=== PATIENT | male | born 1945 | race Caucasian/White ===

== ENCOUNTER 2016-08-11 22:15 | Emergency (ER) | payer BC ==
[~2016-08-11] VITALS: Ht 175.3 cm; Wt 104.5 kg
[~2016-08-11 22:15] MED LIST: ALLO300T2 PO; ASPI81TA21 PO; ATOR-24 PO; METO50TA16 PO; MULTTAB58 PO; NITR0.4S UT; OMEP20CA9 PO; SULI200T4 PO; TRIATAB3 PO
[2016-08-11 22:16] VITALS: TEMP 36.9; Ht 175.3 cm; Wt 104.5 kg
[2016-08-11] MEDS ORDERED: HYDR2.5C37 TOP (22:42)
[2016-08-11] MEDS ORDERED: ACET-1257 PO (22:42)
[2016-08-11] MEDS ORDERED: ALL100 PO (22:42)
[2016-08-11 23:52] LABS: HEMATOCRIT 41.9 % (42-52); MEAN CELL VOLUME 87.5 fL (80-100); MEAN CORPUSCULAR HEMOGLOBIN 31.5 pg (25-34); MEAN PLATELET VOLUME 10.5 fL (7.4-10.4); PLATELET COUNT 95 K/uL (130-400); RED BLOOD COUNT 4.79 M/uL (4.7-6.1); WHITE BLOOD COUNT 8.56 K/uL (4.8-10.8)
[2016-08-11 23:57] LABS: BUN/CREATININE RATIO 24.7 (10-20); CALCIUM 8.8 mg/dl (8.5-10.1); POTASSIUM 3.9 mmol/L (3.5-5.1)
[2016-08-12 00:20] LABS: BASO % 0.2 %; BASO ABS # 0.02 K/uL (0-0.2); COMPLETE YES; EOS % 1.1 %; IG% 0.2 %; LYMPH ABS # 1.97 K/uL (1.2-3.4); MONO % 9.3 %; NEUT % 66.2 %; PLT ESTIMATE DECREASED
--- NOTE | 2016-08-12 00:22 | History and Physical ---
History & Physical Date & Time of Service: Aug 12, 2016 at 00:16 Chief Complaint: Pain In Rectum Primary Care Physician: Tomas Ricci M.D. Past Medical/Surgical History Medical Problems: (1) Coronary artery disease Status: Chronic (2) GERD (gastroesophageal reflux disease) Status: Chronic (3) High cholesterol Status: Chronic (4) HTN (hypertension) Status: Chronic Surgical Problems: (1) History of coronary artery stent placement Status: Resolved Family History Heart disease Hypertension Social History Smoking Status: Never Smoker Marital Status: Occupational Status: retired Immunizations History of Influenza Vaccine: N/A History of Tetanus Vaccine?: Yes Tetanus Immunization Date: Jan 12, 2010 History of Pneumococcal: Yes Pneumococcal Date: Jan 12, 2010 History of Hepatitis B Vaccine: No Multi-Drug Resistant Organisms History of MDRO: No Allergies Coded Allergies: Ticlopidine (Verified Allergy, Intermediate, EYES AND FACE SWELL, 06/16/15) Iodinated Diagnostic Agents (Verified Allergy, Unknown, HIVES, 06/16/15) Home Medications Scheduled Allopurinol (Allopurinol), 100 MG PO DAILY Aspirin Enteric Coated (Ecotrin Or Generic), 81 MG PO QAM Atorvastatin (Lipitor), 40 MG PO Q2D Metoprolol Tartrate (Lopressor) (Lopressor), 50 MG PO BID Omeprazole (Prilosec), 20 MG PO Q2D Triamterene/Hctz (Triamterene/Hctz 37.5-25MG), 1 TAB PO QAM Scheduled PRN Acetaminophen (Tylenol Extra Strength), 500 MG PO Q4-6HRS PRN for Pain Hydrocortisone 2.5% (Rectal) (Anusol-Hc 2.5%), 1 APPLN TOP HS PRN for Rectal Pain Nitroglycerin (Nitrostat), 0.4 MG UT UD PRN for Chest Pain Review of Systems Constitutional: No chills, No fatigue, No fever, No problem reported, No sweats , No weakness, No weight loss Eyes: No diplopia, No discharge, No eye pain, No problem reported, No redness, No worsening of vision ENT: No dental problems, No hearing loss, No nasal symptoms, No problem reported, No sore throat, No tinnitus, No trouble swallowing, No unusual epistaxis Respiratory: No cough, No dyspnea at rest, No dyspnea on exertion, No hemoptysis, No problem reported, No shortness of breath, No sputum, No wheezing Cardiovascular: + problem reported (cardiac stent), No PND, No chest pain, No claudication, No edema, No orthopnea, No palpitations Abdomen: + problem reported (hemorrhoid) Neurologic: No balance problems, No memory loss, No numbness/tingling, No paralysis, No problem reported, No vertigo, No weakness Psychiatric: No anhedonism, No anxiety, No depression symptoms, No insomnia, No problem reported, No substance abuse Hematologic / Lymphatic: No abnormal bleeding/bruising, No clotting problems, No night sweats, No problem reported, No swollen lymph nodes Physical Exam Vital Signs Date Time Temp Pulse Resp B/P Pulse Ox O2 Delivery O2 Flow Rate FiO2 08/12/16 00:12 78 18 163/83 95 Room Air 08/11/16 22:16 36.9 87 18 166/86 95 Room Air General Appearance: WD/WN Head: normocephalic Eyes: normal inspection ENT: normal ENT inspection Neck: supple, no JVD Respiratory/Chest: chest non-tender, lungs clear Cardiovascular: regular rate, rhythm, no edema, no gallop, no JVD Abdomen/GI: normal bowel sounds, non tender, soft, no organomegaly (rectal tenderness at left side, some redness, ) Extremities/Musculoskelatal: normal inspection, no calf tenderness, normal capillary refill Neurologic/Psych: no motor/sensory deficits, alert, normal mood/affect Skin: normal color, warm/dry, no rash Diagnostics Laboratory Results Results Past 24 Hours Test 08/11/16 23:16 Range/Units White Blood Count 8.56 4.8-10.8 K/uL Red Blood Count 4.79 4.7-6.1 M/uL Hemoglobin 15.1 14.0-18.0 g/dL Hematocrit 41.9 42-52 % Mean Corpuscular Volume 87.5 80-100 fL Mean Corpuscular Hemoglobin 31.5 25-34 pg Mean Corpuscular Hemoglobin Concent 36.0 32-36 g/dl Platelet Count 95 130-400 K/uL Mean Platelet Volume 10.5 7.4-10.4 fL RDW Standard Deviation 44.0 36.4-46.3 fL RDW Coefficient of Variation 13.6 11.5-14.5 % Sodium Level 143 136-145 mmol/L Potassium Level 3.9 3.5-5.1 mmol/L Chloride Level 106 98-107 mmol/L Carbon Dioxide Level 27 21-32 mmol/L Anion Gap 10.0 3-11 mmol/L Blood Urea Nitrogen 25 7-18 mg/dl Creatinine 1.00 0.60-1.40 mg/dl Est Creatinine Clear Calc Drug Dose 78.4 ml/min Estimated GFR () 86.2 Estimated GFR (Non- 74.3 BUN/Creatinine Ratio 24.7 10-20 Random Glucose 110 70-99 mg/dl Calcium Level 8.8 8.5-10.1 mg/dl Impression Assessment and Plan IMP anal infection, cellulitis or abscess U/S study to R/O anal abscess, if any fluid collection is present, I recommend to do I/D abscess, D/W benefits, risks and alternatives of the procedure, pt understood, i answered all questions,
[2016-08-12] MEDS ORDERED: METRONIDAZOLE 250 MG TAB PO STA (01:55)
[2016-08-12] MEDS ORDERED: CIPROFLOXACIN 500MG HOME PACK PO ONE (02:00)
[2016-08-12] MEDS ORDERED: PERCOCET HOME PACK PO ONE (02:00)
[2016-08-12] MEDS ORDERED: OXYC-57 PO (02:02)
[2016-08-12] MEDS ORDERED: METR-163 PO (02:02)
[2016-08-12] MEDS ORDERED: CIPR-255 PO (02:02)
--- NOTE | 2016-08-12 02:05 | EMERGENCY ROOM VISIT NOTE ---
History First contact with patient: 22:28 Chief Complaint: RECTAL PAIN Stated Complaint: PAIN IN RECTUM Nursing Triage Summary: pt c/o ongoing rectal pain, Had been straining with constipation. "I thought I may have a hemmorhoid or something". ongoing issue, reports was seen in [place], was given abx and used sitz bath, relieved. Now pt reports pain has returned, bump is larger. denies any bleeding History of Present Illness The patient is a 71 year old male who presents to the Emergency Room with complaints of a possible hemorrhoid. The patient states that he has had rectal pain for the past one week. He reports he had an episode of something similar approximately one year ago. He saw his primary care provider and was given antibiotics, steroid cream, and instructed to do sitz baths. He states that the pain and swelling resolved with this. However, he states his symptoms returned last week. He reports pain in the rectal area which he rates an 8/10. He states he feels the area is swollen. There is no drainage. There is no bleeding. He reports he has been able to have bowel movements without difficulties. He denies any fevers/chills. Review of Systems A complete 10-point Review of Systems was discussed with the patient, with pertinent positives and negatives listed in the History of Present Illness. All remaining Review of Systems questions can be considered negative unless otherwise specified. Past Medical/Surgical History Medical Problems: (1) Coronary artery disease (2) GERD (gastroesophageal reflux disease) (3) High cholesterol (4) HTN (hypertension) Surgical Problems: (1) History of coronary artery stent placement Family History Heart disease Hypertension Social History Smoking Status: Never Smoker Marital Status: Housing Status: lives with significant other Occupation Status: retired Current/Historical Medications Scheduled Allopurinol (Allopurinol), 100 MG PO DAILY Aspirin Enteric Coated (Ecotrin Or Generic), 81 MG PO QAM Atorvastatin (Lipitor), 40 MG PO Q2D Ciprofloxacin Hcl (Cipro), 500 MG PO BID Metoprolol Tartrate (Lopressor) (Lopressor), 50 MG PO BID Metronidazole (Flagyl), 500 MG PO TID Omeprazole (Prilosec), 20 MG PO Q2D Triamterene/Hctz (Triamterene/Hctz 37.5-25MG), 1 TAB PO QAM Scheduled PRN Acetaminophen (Tylenol Extra Strength), 500 MG PO Q4-6HRS PRN for Pain Hydrocortisone 2.5% (Rectal) (Anusol-Hc 2.5%), 1 APPLN TOP HS PRN for Rectal Pain Nitroglycerin (Nitrostat), 0.4 MG UT UD PRN for Chest Pain Oxycodone/Acetaminophen 5MG/325MG (Percocet 5MG/325MG), 1-2 TABS PO Q4H PRN for Pain Allergies Coded Allergies: Ticlopidine (Verified Allergy, Intermediate, EYES AND FACE SWELL, 06/16/15) Iodinated Diagnostic Agents (Verified Allergy, Unknown, HIVES, 06/16/15) Physical Exam Vital Signs Date Time Temp Pulse Resp B/P Pulse Ox O2 Delivery O2 Flow Rate FiO2 08/12/16 02:12 83 18 158/90 97 Room Air 08/12/16 00:12 78 18 163/83 95 Room Air 08/11/16 22:16 36.9 87 18 166/86 95 Room Air Physical Exam VITALS: Vitals are noted on the nurse's note and reviewed by myself. Vital signs stable. GENERAL: This is a 71-year-old male, in no acute distress, nondiaphoretic, well- developed well-nourished. SKIN: Capillary reflex less than 2 seconds. HEART: Regular rate and rhythm without murmurs gallops or rubs. LUNGS: Clear to auscultation bilaterally without wheezes, rales or rhonchi. ABDOMEN: Soft, nontender to palpation. RECTAL: There is induration and erythema in the left gluteal region just lateral to the rectum. There is no drainage or fluctuance. NEURO: Patient was alert and oriented to person place and time. Medical Decision & Procedures ER Provider Diagnostic Interpretation: US EXTREMITY: Heterogeneous space-occupying process in the region of interest which is the left gluteal region. With peripheral vascularity but no intravascular. It measures 1.8 x 1.9 x 3.2 cm. Differential would include hematoma or abscess depending on the clinical scenario. Radiologist: Chevy Barr MD Laboratory Results 08/11/16 23:16 Red Blood Count 4.79, Mean Corpuscular Volume 87.5, Mean Corpuscular Hemoglobin 31.5, Mean Corpuscular Hemoglobin Concent 36.0, Mean Platelet Volume 10.5, Neutrophils (%) (Auto) 66.2, Lymphocytes (%) (Auto) 23.0, Monocytes (%) (Auto) 9.3, Eosinophils (%) (Auto) 1.1, Basophils (%) (Auto) 0.2, Neutrophils # (Auto) 5.66, Lymphocytes # (Auto) 1.97, Monocytes # (Auto) 0.80, Eosinophils # (Auto) 0.09, Basophils # (Auto) 0.02 08/11/16 23:16 Test 08/11/16 23:16 White Blood Count 8.56 K/uL (4.8-10.8) Red Blood Count 4.79 M/uL (4.7-6.1) Hemoglobin 15.1 g/dL (14.0-18.0) Hematocrit 41.9 % (42-52) Mean Corpuscular Volume 87.5 fL (80-100) Mean Corpuscular Hemoglobin 31.5 pg (25-34) Mean Corpuscular Hemoglobin Concent 36.0 g/dl (32-36) Platelet Count 95 K/uL (130-400) Mean Platelet Volume 10.5 fL (7.4-10.4) Neutrophils (%) (Auto) 66.2 % Lymphocytes (%) (Auto) 23.0 % Monocytes (%) (Auto) 9.3 % Eosinophils (%) (Auto) 1.1 % Basophils (%) (Auto) 0.2 % Neutrophils # (Auto) 5.66 K/uL (1.4-6.5) Lymphocytes # (Auto) 1.97 K/uL (1.2-3.4) Monocytes # (Auto) 0.80 K/uL (0.11-0.59) Eosinophils # (Auto) 0.09 K/uL (0-0.5) Basophils # (Auto) 0.02 K/uL (0-0.2) RDW Standard Deviation 44.0 fL (36.4-46.3) RDW Coefficient of Variation 13.6 % (11.5-14.5) Immature Granulocyte % (Auto) 0.2 % Immature Granulocyte # (Auto) 0.02 K/uL (0.00-0.02) Platelet Estimate DECREASED Anion Gap 10.0 mmol/L (3-11) Est Creatinine Clear Calc Drug Dose 78.4 ml/min Estimated GFR () 86.2 Estimated GFR (Non- 74.3 BUN/Creatinine Ratio 24.7 (10-20) Calcium Level 8.8 mg/dl (8.5-10.1) Medications Administered Medications (Trade) Dose Ordered Sig/Giulia Route Start Time Stop Time Status Last Admin Dose Admin Ciprofloxacin (Cipro 500MG Home Pack) 1 homepack UD ONCE PO 08/12/16 02:00 08/12/16 02:01 DC 08/12/16 02:15 1 HOMEPACK Metronidazole (Flagyl Tab) 1,000 mg NOW STAT PO 08/12/16 01:55 08/12/16 01:58 DC 08/12/16 02:14 1,000 MG Oxycodone/ Acetaminophen (Percocet 5/ 325MG Home Pack) 1 homepack UD ONCE PO 08/12/16 02:00 08/12/16 02:01 DC 08/12/16 02:15 1 HOMEPACK Medical Decision Differential diagnosis includes perirectal abscess, perirectal cellulitis, hemorrhoid, among others. The patient was evaluated as above. He appears to have a perirectal infection. I do not appreciate any fluctuance on exam to suggest an abscess. Labs were drawn. I consulted the general surgeon on-call, Dr. Tucker, who did evaluate the patient. Please see his dictation for this consultation. He did request an ultrasound of the area, which was performed and read by stat sarai. These findings were discussed with Dr. Tucker, who felt that the patient should be discharged home on ciprofloxacin and Flagyl to follow-up in the office with him this Friday. These findings were discussed with the patient, who verbalized his understanding. He was given home packs of ciprofloxacin and Flagyl as well as pack and prescription of Percocet for pain. He was instructed to use Colace to aid with bowel movements. He will return for any worsening of his symptoms. He verbalized understanding of my assessment and treatment plan and was discharged home in good condition. The patient's case was reviewed with Dr. Meier, ED attending physician, who agreed with my assessment and treatment plan. [place] Drug Monitoring Program Search Results: patient reviewed within database, no issues identified Impression Primary Impression: Perirectal abscess Departure Information Dispostion Home / Self-Care Condition GOOD Prescriptions Oxycodone/Acetaminophen 5MG/325MG (PERCOCET 5MG/325MG) Tab 1-2 TABS PO Q4H Y for Pain, #20 TAB For Initial Treatment Prov: Rosamaria Cifuentes PA-C 08/12/16 Metronidazole (Flagyl) 500 Mg Tab 500 MG PO TID for 10 Days, #30 TAB Prov: Rosamaria Cifuentes PA-C 08/12/16 Ciprofloxacin Hcl (CIPRO) 500 Mg Tab 500 MG PO BID for 10 Days, #20 TAB Prov: Rosamaria Cifuentes PA-C 08/12/16 Referrals Tomas Ricci M.D. (PCP) Luis Fernando Tucker MD Patient Instructions My [facility] Additional Instructions You were prescribed ciprofloxacin to be taken twice daily as prescribed. This is an antibiotic. All antibiotics have the potential to cause diarrhea. Stop this medication and contact a medical provider if you were to develop any significant adverse side effects including: wheezing, shortness of breath, passing out, vomiting, or a diffuse rash. Always take antibiotics as directed and COMPLETE the ENTIRE course regardless of the improvement of your symptoms. You were prescribed Flagyl to be taken 3 times daily as prescribed. This is an antibiotic. All antibiotics have the potential to cause diarrhea. Stop this medication and contact a medical provider if you were to develop any significant adverse side effects including: wheezing, shortness of breath, passing out, vomiting, or a diffuse rash. Always take antibiotics as directed and COMPLETE the ENTIRE course regardless of the improvement of your symptoms. For pain control, you can use the following [id number] medicines (if >12 yo): - Regular strength (325mg/tab) Tylenol (acetaminophen) 2 tabs every 4-6 hours as needed. Do not exceed 12 tablets in a 24 hour period. Avoid taking more than 4 grams (4000 mg) of Tylenol per day. This includes any other sources of acetaminophen you may take on a regular basis. - Regular strength (200 mg/tab) Advil (ibuprofen) 1-2 tabs every 4-6 hours as needed. Do not exceed a dose of 3200 mg per day. You should take Colace daily to help soft and your stools and make bowel movements less painful. Call Dr. Tucker's office tomorrow to schedule a follow-up appointment. They will be able to see you on Friday. Return to the emergency department with worsening swelling, worsening pain, fevers or any other new/concerning symptoms.
[2016-08-12] MEDS ORDERED: EMPTY 8 DRAM VIAL ONE (02:08)
[2016-08-12 02:12] VITALS: BP 158/90; PULSE 83; O2SAT 97
--- NOTE | 2016-08-12 06:42 | DIAGNOSTIC IMAGING REPORT ---
LEFT GLUTEAL ULTRASOUND CLINICAL HISTORY: Induration in the left perirectal region. Possible abscess COMPARISON STUDY: No previous studies for comparison. FINDINGS: Ultrasonographic evaluation of the left gluteal region is provided for interpretation. There is an avascular hypoechoic 18 x 19 x 32 mm lesion lateral to the left gluteal cleft. IMPRESSION: Avascular 18 x 19 x 32 mm mass within the left gluteal region just lateral to the gluteal cleft. Given the clinical history, this could represent an abscess. Electronically signed by: Aime Turcios M.D. 08/12/2016 6:40 AM Dictated Date/Time: 08/12/2016 6:38 AM
== END 2016-08-12 02:26 | disposition home or self-care (01) ==
LOC: C.EDB 22:16
DX: K61.1 Rectal abscess (principal); I10 Essential (primary) hypertension; E78.00 Pure hypercholesterolemia, unspecified; I25.10 Atherosclerotic heart disease of native coronary artery without angina pectoris; K21.9 Gastro-esophageal reflux disease without esophagitis; Z98.61 Coronary angioplasty status; Z79.82 Long term (current) use of aspirin; Z79.899 Other long term (current) drug therapy; Z88.8 Allergy status to other drugs, medicaments and biological substances; Z91.041 Radiographic dye allergy status; Z82.49 Family history of ischemic heart disease and other diseases of the circulatory system

== ENCOUNTER → 2016-08-22 | Outpatient (CLI) | payer BC ==
[~2016-08-22] MED LIST changes: +ACET-1257 PO; +ALL100 PO; -ALLO300T2 PO; +CIPR-255 PO; +HYDR2.5C37 TOP; +METR-163 PO; -MULTTAB58 PO; +OXYC-57 PO; -SULI200T4 PO
[2016-08-22 13:18] LABS: ALT/SGPT 56 U/L (12-78); BLOOD UREA NITROGEN 25 mg/dl (7-18); BUN/CREATININE RATIO 18.8 (10-20); CARBON DIOXIDE 26 mmol/L (21-32); CHLORIDE 101 mmol/L (98-107); CHOLESTEROL 150 mg/dl (0-200); GLUCOSE 121 mg/dl (70-99); POTASSIUM 3.5 mmol/L (3.5-5.1); SODIUM 137 mmol/L (136-145); TRIGLYCERIDES 195 mg/dl (0-150); URIC ACID 9.3 mg/dl (2.6-7.2); VERY LOW DENSITY LIPOPROT CALC 39 mg/dl
[2016-08-22 13:20] LABS: CALCIUM 9.6 mg/dl (8.5-10.1); ESTIMATED AVERAGE GLUCOSE 114 mg/dl; HA1C FLAG Normal (Normal)
[2016-08-22 13:21] LABS: ALB/GLOB RATIO 1.3 (0.9-2); ALKALINE PHOSPHATASE 76 U/L (45-117); AST/SGOT 56 U/L (15-37); CHOLESTEROL/HDL RATIO 3.5; HDL CHOLESTEROL 43 mg/dl; LDL CHOLESTEROL CALCULATED 68 mg/dl
== END | disposition home or self-care (01) ==
LOC: C.LABPVFM 07:58
PROVIDERS: ATTEND Family Medicine
DX: M10.9 Gout, unspecified (principal); I25.10 Atherosclerotic heart disease of native coronary artery without angina pectoris; E78.5 Hyperlipidemia, unspecified; I10 Essential (primary) hypertension; K21.9 Gastro-esophageal reflux disease without esophagitis; Z12.5 Encounter for screening for malignant neoplasm of prostate; R73.01 Impaired fasting glucose

== ENCOUNTER → 2017-06-05 | Outpatient (CLI) | payer BC ==
[~2017-06-05] MED LIST changes: -METR-163 PO; -OXYC-57 PO
[2017-06-05 17:53] LABS: ALKALINE PHOSPHATASE 99 U/L (45-117); ALT/SGPT 26 U/L (12-78); AST/SGOT 28 U/L (15-37); BLOOD UREA NITROGEN 33 mg/dl (7-18); CALCIUM 8.7 mg/dl (8.5-10.1); CARBON DIOXIDE 19 mmol/L (21-32); CREATININE 0.96 mg/dl (0.60-1.40); GLUCOSE 133 mg/dl (70-99); LIPASE 117 U/L (73-393); POTASSIUM 4.5 mmol/L (3.5-5.1); SODIUM 137 mmol/L (136-145); TOTAL PROTEIN 7.3 gm/dl (6.4-8.2)
[2017-06-05 18:17] LABS: HEMATOCRIT 50.2 % (42-52); HEMOGLOBIN 18.5 g/dL (14.0-18.0); MEAN CELL VOLUME 86.4 fL (80-100); MEAN CORPUSCULAR HEMOGLOBIN 31.8 pg (25-34); MEAN CORPUSCULAR HGB CONC 36.9 g/dl (32-36); RED CELL DISTRIBUTION WIDTH CV 13.5 % (11.5-14.5); WHITE BLOOD COUNT 7.08 K/uL (4.8-10.8)
[2017-06-05 18:19] LABS: MEAN PLATELET VOLUME 12.5 fL (7.4-10.4); PLATELET COUNT 39 K/uL (130-400)
[2017-06-05 18:20] LABS: BASO % 0.4 %; BASO ABS # 0.03 K/uL (0-0.2); EOS % 0.1 %; EOS ABS # 0.01 K/uL (0-0.5); IG# 0.04 K/uL (0.00-0.02); LYMPH % 5.2 %; LYMPH ABS # 0.37 K/uL (1.2-3.4); MONO % 5.6 %; NEUT % 88.1 %; NEUT ABS # 6.23 K/uL (1.4-6.5)
== END | disposition home or self-care (01) ==
LOC: C.LABPVFM 11:39
PROVIDERS: ATTEND Family Medicine
DX: K52.9 Noninfective gastroenteritis and colitis, unspecified (principal)

== ENCOUNTER 2022-07-27 13:53 | Observation (INO) ==
--- NOTE | 2022-07-27 14:37 | Emergency Department Note ---
History of Present Illness General Chief complaint: Flu Like Symptoms Stated complaint: FLU LIKE SYMPTOMS - INFLUENZA A+ Time Seen by Provider: 07/27/22 14:06 Source: patient and family (Son at bedside and in the adjacent bed who is patient also) History of Present Illness Provider complaint: Weakness influenza 77-year-old male presents emergency department for weakness and influenza. Patient reports she was diagnosed with influenza yesterday. He reports he has been weak and coughing. No hemoptysis. No chest pain. No shortness of breath. Patient's is stated the adjacent bed being treated in the emergency department and he stated while she was being checked out he wanted to be checked out also. No chest pain. No fever. Patient is not on Tamiflu. Home Medications Medication Instructions Recorded Confirmed Type acetaminophen 500 mg tablet 500 mg PO .Q4-6H PRN fever or pain 11/17/18 07/27/22 History nitroglycerin 0.4 mg sublingual 0.4 mg sublingual Q5M PRN chest 11/17/18 07/27/22 History tablet pain #25 tabs atorvastatin 40 mg tablet 40 mg PO DAILY #90 tabs 01/08/22 07/27/22 Rx metoprolol succinate 50 mg 50 mg PO QPM #90 tabs 01/08/22 07/27/22 Rx tablet,extended release 24 hr allopurinol 100 mg tablet 200 mg PO DAILY #180 tabs 06/12/22 07/27/22 Rx omeprazole 20 mg capsule,delayed 20 mg PO Q OTHER DAY #45 caps 06/12/22 07/27/22 Rx release aspirin 81 mg tablet,delayed 81 mg PO DAILY 07/27/22 07/27/22 History release Allergies Allergy/AdvReac Type Severity Reaction Status Date / Time ticlopidine Allergy Intermediate EYES AND Verified 07/27/22 17:30 FACE SWELL Iodinated Contrast Media Allergy Unknown HIVES Verified 07/27/22 17:30 triamterene AdvReac Diarrhea Verified 07/27/22 17:30 Past Med/Surg History Medical History (Updated 07/27/22 @ 20:45 by Andrea Ureña) Abscess, perirectal (10/2018) Constipation Elevated liver enzymes Hemorrhoids Impaired fasting glucose Stasis dermatitis Thrombocytopenia Varicose vein of leg Surgical History S/P right coronary artery (RCA) stent placement (1996) Family History Mother No problems noted. 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 marital status: Current Living Situation: Spouse current occupational status: retired How many Children do You have: 3 Feels Safe at Home: Yes Childhood Exposure to Second-Hand Smoke: Yes caffeine: Yes Dental Care, Regularly: Yes Physical Activity Frequency: Does not Exercise Seatbelt Use: always Sunscreen Use: No Physical Exam Vital Signs Vital Signs - 24 hr 07/27/22 13:54 07/27/22 14:50 07/27/22 15:00 Temperature 37.5 C Temperature Source Temporal Artery Scan Pulse Rate 110 H 106 H Pulse Rate [Right Finger] 93 H Pulse Rate from SpO2 Sensor Pulse Rhythm Pulse Rhythm [Right Finger] Irregular Pulse Strength [Right Finger] Normal Respiratory Rate 16 15 Respiratory Effort / Characteristics Non-Labored Spontaneous Respiratory Depth Normal Respiratory Pattern Regular Blood Pressure 107/52 L Blood Pressure [Right Arm] 124/79 Blood Pressure Mean 70 Blood Pressure Mean [Right Arm] 94 Blood Pressure Position [Right Arm] Lying Pulse Oximetry 96 91 Oxygen Delivery Method Room Air Sepsis Recent Fever Within 48 Hours No Sepsis New/Unexplained Change in Mental Status N/A Sepsis Action Taken by Nursing No Action Required 07/27/22 15:00 07/27/22 14:48 07/27/22 14:50 Temperature Temperature Source Pulse Rate 99 H 108 H 106 H Pulse Rate [Right Finger] Pulse Rate from SpO2 Sensor 108 H 97 H Pulse Rhythm Irregular Pulse Rhythm [Right Finger] Pulse Strength [Right Finger] Respiratory Rate 15 18 18 Respiratory Effort / Characteristics Respiratory Depth Respiratory Pattern Blood Pressure Blood Pressure [Right Arm] Blood Pressure Mean Blood Pressure Mean [Right Arm] Blood Pressure Position [Right Arm] Pulse Oximetry 91 96 95 Oxygen Delivery Method Room Air Sepsis Recent Fever Within 48 Hours Sepsis New/Unexplained Change in Mental Status Sepsis Action Taken by Nursing 07/27/22 15:00 07/27/22 15:10 07/27/22 15:20 Temperature Temperature Source Pulse Rate 104 H 100 H 109 H Pulse Rate [Right Finger] Pulse Rate from SpO2 Sensor 101 H 96 H Pulse Rhythm Pulse Rhythm [Right Finger] Pulse Strength [Right Finger] Respiratory Rate 17 18 13 Respiratory Effort / Characteristics Respiratory Depth Respiratory Pattern Blood Pressure Blood Pressure [Right Arm] Blood Pressure Mean Blood Pressure Mean [Right Arm] Blood Pressure Position [Right Arm] Pulse Oximetry 94 93 Oxygen Delivery Method Sepsis Recent Fever Within 48 Hours Sepsis New/Unexplained Change in Mental Status Sepsis Action Taken by Nursing 07/27/22 15:22 07/27/22 15:22 07/27/22 15:30 Temperature Temperature Source Pulse Rate 96 H Pulse Rate [Right Finger] Pulse Rate from SpO2 Sensor 81 Pulse Rhythm Pulse Rhythm [Right Finger] Pulse Strength [Right Finger] Respiratory Rate 17 Respiratory Effort / Characteristics Respiratory Depth Respiratory Pattern Blood Pressure 124/79 99/69 L Blood Pressure [Right Arm] Blood Pressure Mean 94 79 Blood Pressure Mean [Right Arm] Blood Pressure Position [Right Arm] Pulse Oximetry 93 Oxygen Delivery Method Sepsis Recent Fever Within 48 Hours Sepsis New/Unexplained Change in Mental Status Sepsis Action Taken by Nursing 07/27/22 15:30 07/27/22 15:40 07/27/22 15:50 Temperature Temperature Source Pulse Rate 103 H 96 H 105 H Pulse Rate [Right Finger] Pulse Rate from SpO2 Sensor 99 H 89 91 H Pulse Rhythm Pulse Rhythm [Right Finger] Pulse Strength [Right Finger] Respiratory Rate 21 21 18 Respiratory Effort / Characteristics Respiratory Depth Respiratory Pattern Blood Pressure Blood Pressure [Right Arm] Blood Pressure Mean Blood Pressure Mean [Right Arm] Blood Pressure Position [Right Arm] Pulse Oximetry 91 89 L 93 Oxygen Delivery Method Sepsis Recent Fever Within 48 Hours Sepsis New/Unexplained Change in Mental Status Sepsis Action Taken by Nursing 07/27/22 16:00 07/27/22 16:00 07/27/22 16:10 Temperature Temperature Source Pulse Rate 96 H 99 H Pulse Rate [Right Finger] Pulse Rate from SpO2 Sensor 78 96 H Pulse Rhythm Pulse Rhythm [Right Finger] Pulse Strength [Right Finger] Respiratory Rate 13 18 Respiratory Effort / Characteristics Respiratory Depth Respiratory Pattern Blood Pressure 129/85 Blood Pressure [Right Arm] Blood Pressure Mean 99 Blood Pressure Mean [Right Arm] Blood Pressure Position [Right Arm] Pulse Oximetry 95 94 Oxygen Delivery Method Sepsis Recent Fever Within 48 Hours Sepsis New/Unexplained Change in Mental Status Sepsis Action Taken by Nursing 07/27/22 16:20 07/27/22 16:30 07/27/22 16:30 Temperature Temperature Source Pulse Rate 92 H 94 H Pulse Rate [Right Finger] Pulse Rate from SpO2 Sensor 88 88 Pulse Rhythm Pulse Rhythm [Right Finger] Pulse Strength [Right Finger] Respiratory Rate 22 16 Respiratory Effort / Characteristics Respiratory Depth Respiratory Pattern Blood Pressure 133/75 Blood Pressure [Right Arm] Blood Pressure Mean 94 Blood Pressure Mean [Right Arm] Blood Pressure Position [Right Arm] Pulse Oximetry 91 94 Oxygen Delivery Method Sepsis Recent Fever Within 48 Hours Sepsis New/Unexplained Change in Mental Status Sepsis Action Taken by Nursing 07/27/22 16:40 07/27/22 16:50 07/27/22 17:00 Temperature Temperature Source Pulse Rate 88 90 85 Pulse Rate [Right Finger] Pulse Rate from SpO2 Sensor 84 88 Pulse Rhythm Pulse Rhythm [Right Finger] Pulse Strength [Right Finger] Respiratory Rate 23 15 16 Respiratory Effort / Characteristics Respiratory Depth Respiratory Pattern Blood Pressure Blood Pressure [Right Arm] Blood Pressure Mean Blood Pressure Mean [Right Arm] Blood Pressure Position [Right Arm] Pulse Oximetry 89 L 94 Oxygen Delivery Method Sepsis Recent Fever Within 48 Hours Sepsis New/Unexplained Change in Mental Status Sepsis Action Taken by Nursing 07/27/22 17:10 Temperature Temperature Source Pulse Rate 102 H Pulse Rate [Right Finger] Pulse Rate from SpO2 Sensor Pulse Rhythm Pulse Rhythm [Right Finger] Pulse Strength [Right Finger] Respiratory Rate 18 Respiratory Effort / Characteristics Respiratory Depth Respiratory Pattern Blood Pressure Blood Pressure [Right Arm] Blood Pressure Mean Blood Pressure Mean [Right Arm] Blood Pressure Position [Right Arm] Pulse Oximetry Oxygen Delivery Method Sepsis Recent Fever Within 48 Hours Sepsis New/Unexplained Change in Mental Status Sepsis Action Taken by Nursing Physical Exam GENERAL: oriented to person, place, and time. appears well-developed and well- nourished. HENT: Exam performed. - Head: Normocephalic and atraumatic. EYES: Conjunctivae and EOM are normal. Right eye exhibits no discharge. Left eye exhibits no discharge. No scleral icterus. NECK: Normal range of motion. Neck supple. No JVD present. CV: Normal rate, regular rhythm, normal heart sounds and intact distal pulses. There is no peripheral edema. Palpable radial pulses bue. PULM/CHEST: Effort normal and breath sounds normal. No respiratory distress. No stridor. no wheezes. no rales. ABD: The abdomen is soft. There is no tenderness. NEURO: Motor and sensation grossly intact. SKIN: Skin is warm and dry. He is not diaphoretic. PSYCH: normal mood and affect. Behavior is normal. Judgment and thought content normal. Course Course 1406: The patient was evaluated in room A9B. A complete history and physical exam was performed Cardiac monitoring: An order was placed for continuous cardiac monitoring. The monitor shows a rate of 100 with sinus rhythm interpreted by me 1650: Vital signs stable. Patient's oxygen saturation have been borderline low 90 to 92%. Labs show leukopenia of 3.29 VBG within normal limits. Lactic acid 2.6. Troponin 86. Creatinine 1.63. This is elevated from patient's baseline of approximately 0.8. Patient given 1 L of IV fluids. 30 cc/kg bolus not given to the patient given his borderline low oxygen saturations and his stable blood pressures. Chest x-ray reviewed by me showed no infiltrate however formal radio logy read does make note of an asymmetric interstitial thickening within the left lung. Radiologist comments that this is likely artifactual however an infectious process or an asymmetric pulmonary edema could appear similar. Patient is influenza positive. Given the patient is influenza positive, has a borderline oxygen saturation, elevated lactic acid. We will presume that the patient's chest x-ray findings are not infiltrate and treat for possible staph infection given the positive influenza screen also. Blood cultures sent on the patient. Vancomycin ordered for the patient. [facility] be [facility]. Administered Medications Discontinued Medications Sodium Chloride (Nss 1000ml) 1,000 mls @ 999 mls/hr IV .Q1H1M ONE Stop: 07/27/22 17:06 Last Infusion: 07/27/22 19:49 Dose: 0 mls/hr Documented By: Admin: 07/27/22 16:44 Dose: 999 mls/hr Documented By: HUBERT Vancomycin HCl 2,000 mg/ (Sodium Chloride) 540 mls @ 200 mls/hr IV NOW ONE Stop: 07/27/22 18:47 Last Admin: 07/27/22 16:44 Dose: 200 mls/hr Documented By: HUBERT Medical Decision Making Laboratory Data Attestation: I reviewed the patient's lab results. 07/27/22 14:39 07/27/22 17:01 Lab Results 07/27/22 07/27/22 07/27/22 Range/Units 14:39 14:39 14:39 WBC 3.29 L (4.8-10.8) K/ul RBC 5.16 (4.70-6.10) M/uL Hgb 15.9 (14.0-18.0) g/dl Hct 44.3 (42.0-52.0) % MCV 85.9 (80.0-100.0) fL MCH 30.8 (25.0-34.0) pg MCHC 35.9 (32.0-36.0) g/dL RDW Std Deviation 39.8 (36.4-46.3) fL RDW Coeff of Paramjit 12.9 (11.5-14.5) % Plt Count 112 L (130-400) K/uL MPV 11.2 (9.4-12.4) fL Immature Gran % (Auto) 0.3 % Neut % (Auto) 60.8 % Lymph % (Auto) 26.4 % [place] % (Auto) 12.2 % Eos % (Auto) 0.0 % Baso % (Auto) 0.3 % Neut # (Auto) 2.00 (1.40-6.50) K/uL Lymph # (Auto) 0.87 L (1.2-3.4) K/uL [place] # (Auto) 0.40 (0.11-0.59) K/uL Eos # (Auto) 0.00 (0-0.50) K/uL Baso # (Auto) 0.01 (0-0.2) K/uL Immature Gran # (Auto) 0.01 (0.01-0.20) K/uL VBG pH (7.36-7.41) VBG pCO2 (38-50) mmHg VBG pO2 mmHg VBG HCO3 mmol/L VBG O2 Saturation % VBG Base Excess mEq/L Sodium TNP Potassium TNP Chloride 100 (98-107) mmol/L Carbon Dioxide 22 (21-32) mmol/L Anion Gap TNP BUN 30 H (6-23) mg/dl Creatinine 1.63 H (0.6-1.4) mg/dl Est Cr Clr Drug Dosing 41.6 ml/min Est GFR ( Amer) 45.8 ml/min Est GFR (Non-Af Amer) 39.5 ml/min BUN/Creatinine Ratio 18.4 (10-20) Glucose 125 H (70-99(Fasting)) mg/dl Lactate 2.6 H* (0.4-2.0) mmol/L Calcium 8.6 (8.6-10.3) mg/dl Magnesium TNP Troponin I High Sens 86.0 H* (0-20) pg/ml Lipase 33 (11-82) U/L Procalcitonin (0-0.5) ng/ml SARS-CoV-2 (PCR) (Negative) Influenza Type A (PCR) (Neg) Influenza Type B (PCR) (Neg) RSV (RT-PCR) (Neg) 07/27/22 07/27/22 07/27/22 Range/Units 14:39 14:44 14:50 WBC (4.8-10.8) K/ul RBC (4.70-6.10) M/uL Hgb (14.0-18.0) g/dl Hct (42.0-52.0) % MCV (80.0-100.0) fL MCH (25.0-34.0) pg MCHC (32.0-36.0) g/dL RDW Std Deviation (36.4-46.3) fL RDW Coeff of Paramjit (11.5-14.5) % Plt Count (130-400) K/uL MPV (9.4-12.4) fL Immature Gran % (Auto) % Neut % (Auto) % Lymph % (Auto) % [place] % (Auto) % Eos % (Auto) % Baso % (Auto) % Neut # (Auto) (1.40-6.50) K/uL Lymph # (Auto) (1.2-3.4) K/uL [place] # (Auto) (0.11-0.59) K/uL Eos # (Auto) (0-0.50) K/uL Baso # (Auto) (0-0.2) K/uL Immature Gran # (Auto) (0.01-0.20) K/uL VBG pH 7.39 (7.36-7.41) VBG pCO2 37 L (38-50) mmHg VBG pO2 29 mmHg VBG HCO3 22 mmol/L VBG O2 Saturation < 60.0 % VBG Base Excess -2.2 mEq/L Sodium Potassium Chloride (98-107) mmol/L Carbon Dioxide (21-32) mmol/L Anion Gap BUN (6-23) mg/dl Creatinine (0.6-1.4) mg/dl Est Cr Clr Drug Dosing ml/min Est GFR ( Amer) ml/min Est GFR (Non-Af Amer) ml/min BUN/Creatinine Ratio (10-20) Glucose (70-99(Fasting)) mg/dl Lactate (0.4-2.0) mmol/L Calcium (8.6-10.3) mg/dl Magnesium Troponin I High Sens (0-20) pg/ml Lipase (11-82) U/L Procalcitonin 0.15 (0-0.5) ng/ml SARS-CoV-2 (PCR) NEGATIVE (Negative) Influenza Type A (PCR) Positive A* (Neg) Influenza Type B (PCR) Negative (Neg) RSV (RT-PCR) Negative (Neg) 07/27/22 07/27/22 Range/Units 17:01 17:01 WBC (4.8-10.8) K/ul RBC (4.70-6.10) M/uL Hgb (14.0-18.0) g/dl Hct (42.0-52.0) % MCV (80.0-100.0) fL MCH (25.0-34.0) pg MCHC (32.0-36.0) g/dL RDW Std Deviation (36.4-46.3) fL RDW Coeff of Paramjit (11.5-14.5) % Plt Count (130-400) K/uL MPV (9.4-12.4) fL Immature Gran % (Auto) % Neut % (Auto) % Lymph % (Auto) % [place] % (Auto) % Eos % (Auto) % Baso % (Auto) % Neut # (Auto) (1.40-6.50) K/uL Lymph # (Auto) (1.2-3.4) K/uL [place] # (Auto) (0.11-0.59) K/uL Eos # (Auto) (0-0.50) K/uL Baso # (Auto) (0-0.2) K/uL Immature Gran # (Auto) (0.01-0.20) K/uL VBG pH (7.36-7.41) VBG pCO2 (38-50) mmHg VBG pO2 mmHg VBG HCO3 mmol/L VBG O2 Saturation % VBG Base Excess mEq/L Sodium 133 L Potassium 3.6 Chloride (98-107) mmol/L Carbon Dioxide (21-32) mmol/L Anion Gap BUN (6-23) mg/dl Creatinine (0.6-1.4) mg/dl Est Cr Clr Drug Dosing ml/min Est GFR ( Amer) ml/min Est GFR (Non-Af Amer) ml/min BUN/Creatinine Ratio (10-20) Glucose (70-99(Fasting)) mg/dl Lactate 1.5 (0.4-2.0) mmol/L Calcium (8.6-10.3) mg/dl Magnesium 2.1 Troponin I High Sens (0-20) pg/ml Lipase (11-82) U/L Procalcitonin (0-0.5) ng/ml SARS-CoV-2 (PCR) (Negative) Influenza Type A (PCR) (Neg) Influenza Type B (PCR) (Neg) RSV (RT-PCR) (Neg) Imaging Data Attestation: I personally reviewed and interpreted this imaging study as follows: My Impression: Chest x-ray negative. Airway clear. No pneumothorax. No consolidation. No cardiomegaly or cephalization.. No free air under the diaphragm. No fractures of the skeletal structures. Radiologist's Impression: Chest X-Ray 07/27/22 14:28 XR chest 1V portable CLINICAL HISTORY: Weakness. Cough. Shortness of breath. COMPARISON STUDY: Chest radiograph June 16, 2015. FINDINGS: Low lung volumes are again noted. There is no pneumothorax or pleural fusion. Apparent asymmetric interstitial thickening within the left lung is noted. This probably technical/related to patient rotation. Cardiomediastinal silhouette is unremarkable. No consolidation is identified. IMPRESSION: Asymmetric interstitial thickening within the left lung. This is likely artifactual. An infectious process or asymmetric pulmonary edema could appear similar. ACT 112: Negative or not required by law. Electronically signed by: Long Mcdonald M.D. 07/27/2022 3:05 PM ECG Data Attestation: I personally reviewed and interpreted this ECG as follows: Indication: + SOB/dyspnea Rate (beats per minute): 100 Rhythm: + normal sinus ECG Intervals/blocks: + Normal [place] and + Normal QT-c ECG ST segments: + Normal ST segments Additional Comments: QRS 64 MDM Narrative 1406: The patient was evaluated in room A9B. A complete history and physical exam was performed Cardiac monitoring: An order was placed for continuous cardiac monitoring. The monitor shows a rate of 100 with sinus rhythm interpreted by me 1650: Vital signs stable. Patient's oxygen saturation have been borderline low 90 to 92%. Labs show leukopenia of 3.29 VBG within normal limits. Lactic acid 2.6. Troponin 86. Creatinine 1.63. This is elevated from patient's baseline of approximately 0.8. Patient given 1 L of IV fluids. 30 cc/kg bolus not given to the patient given his borderline low oxygen saturations and his stable blood pressures. Chest x-ray reviewed by me showed no infiltrate however formal radiology read does make note of an asymmetric interstitial thickening within the left lung. Radiologist comments that this is likely artifactual however an infectious process or an asymmetric pulmonary edema could appear similar. Javier kayleigh is influenza positive. Given the patient is influenza positive, has a borderline oxygen saturation, elevated lactic acid. We will presume that the patient's chest x-ray findings are not infiltrate and treat for possible staph infection given the positive influenza screen also. Blood cultures sent on the patient. Vancomycin ordered for the patient. [facility] will be [facility]. Impression & Plan Pneumonia, Influenza, Sepsis Discharge Plan Visit Data Chief Complaint: Flu Like Symptoms Stated Complaint: FLU LIKE SYMPTOMS - INFLUENZA A+ ED Provider: Andrea Ureña Discharge Problem: Pneumonia, Influenza, Sepsis Patient Disposition: Admitted As Inpatient Discharge Instructions Interventions: ED Discharge Assessment Last Done: 07/27/22 20:28
[2022-07-27 14:54] LABS: Base Excess VBG -2.2 mEq/L; HCO3 VBG 22 mmol/L; Oxygen Saturation VBG < 60.0 %; PCO2 VBG 37 mmHg (38-50); PO2 VBG 29 mmHg; pH VBG 7.39 (7.36-7.41)
[2022-07-27 15:00] LABS: Basophils # (auto) 0.01 K/uL (0-0.2); Basophils % (auto) 0.3 %; Hematocrit (blood only) 44.3 % (42.0-52.0); Hemoglobin 15.9 g/dl (14.0-18.0); Immature Granulocytes # (auto) 0.01 K/uL (0.01-0.20); Immature Granulocytes % (auto) 0.3 %; Lymphocytes # (auto) 0.87 K/uL (1.2-3.4); Lymphocytes % (auto) 26.4 %; Mean Corpuscular Hemoglobin 30.8 pg (25.0-34.0); Mean Corpuscular Hgb Conc 35.9 g/dL (32.0-36.0); Mean Corpuscular Volume 85.9 fL (80.0-100.0); Mean Platelet Volume 11.2 fL (9.4-12.4); Monocytes % (auto) 12.2 %; Neutrophils % (auto) 60.8 %; Platelet Count 112 K/uL (130-400); RDW Coefficient of Variation 12.9 % (11.5-14.5); RDW Standard Deviation 39.8 fL (36.4-46.3); Red Blood Count 5.16 M/uL (4.70-6.10); White Blood Count 3.29 K/ul (4.8-10.8)
--- NOTE | 2022-07-27 15:06 | XRay Report ---
XR chest 1V portable CLINICAL HISTORY: Weakness. Cough. Shortness of breath. COMPARISON STUDY: Chest radiograph June 16, 2015. FINDINGS: Low lung volumes are again noted. There is no pneumothorax or pleural fusion. Apparent asym metric interstitial thickening within the left lung is noted. This probably technical/related to aryan ent rotation. Cardiomediastinal silhouette is unremarkable. No consolidation is identified. IMPRESSION: Asymmetric interstitial thickening within the left lung. This is likely artifactual. An infectious process or asymmetric pulmonary edema could appear similar. ACT 112: Negative or not required by law. Electronically signed by: Long Mcdonald M.D. 07/27/2022 3:05 PM
[2022-07-27 15:41] LABS: Influenza B virus by PCR Negative (Neg); RSV by PCR Negative (Neg); SARS CoV2 RNA(COVID-19) Ceph NEGATIVE (Negative)
[2022-07-27 15:45] LABS: Influenza A virus by PCR Positive (Neg)
[2022-07-27] MEDS ORDERED: SODIUM CHLORIDE 0.9% 1000ML 1,000 ML IV ONE (16:06)
[2022-07-27] MEDS ORDERED: VANCOMYCIN HCL 2,000 MG in SODIUM CHLORIDE 0.9% 500 ML IV ONE (16:06)
[2022-07-27] MEDS ORDERED: VANCOMYCIN CONSULT ACTIVE PRN (16:06)
[2022-07-27 16:15] LABS: BUN Creatinine Ratio 18.4 (10-20); Blood Urea Nitrogen 30 mg/dl (6-23); Calcium 8.6 mg/dl (8.6-10.3); Carbon Dioxide 22 mmol/L (21-32); Chloride 100 mmol/L (98-107); Creatinine Clr Calc Pharmacy 41.6 ml/min; Est GFR (African American) 45.8 ml/min; Est GFR (Non-African American) 39.5 ml/min; Glucose 125 mg/dl (70-99(Fasting)); Lipase 33 U/L (11-82)
--- NOTE | 2022-07-27 17:18 | History & Physical Report ---
Date of Service July 27, 2022 Assessment & Plan (1) TACOS (acute kidney injury): Plan: -Admit to med/tele -The patient is currently afebrile, hemodynamically stable, and stable on RA -Has been having URI symptoms for 1-1.5 weeks along with diarrhea and poor oral intake -Cr today is 1.63, baseline appears to be 0.9 -Likely due to poor oral intake, diarrhea, and dehydration -S/P 1L NSS in the ED, will given LR at 100 mL/hr x 1 bag for now as he is still dehydrated on exam -Initial lactate of 2.6, this cleared to 1.5 after his initial fluid bolus -Avoid nephrotoxic agents, monitor am renal function and electrolytes -Monitor intake and output q6h -BL SCD's and reduced lovenox dosing based on his current renal function; cannot have heparin due to his thrombocytopenia (2) Elevated troponin: Plan: -Initial high sen trop elevated at 86 -The patient is currently asymptomatic and without acute ST segment or T-wave inversions -Likely due to dehydration, acute illness, and TACOS -Repeat 2 hour trop on admission, will monitor on tele (3) Influenza A: Plan: -Noted to be positive today, symptoms for approximately 1-1.5 weeks -Stable on RA, will not start Tamiflu due to the length between the start of his symptoms -Symptomatic treatment for now with with incentive spirometry, flutter therapy, prn DuoNebs, Robitussin and O2 to keep SpO2 at 95% or greater -Interstitial lung thickening of the left lung was described as possible artifact, was given a dose of Vancomycin in the ED for possible MRSA pneumonia -He is without a leukocytosis, CXR appears more viral in nature, will obtain procal and MRSA swab, hold additional abx for now (4) Diarrhea: Plan: -Recent antibiotic use last month, having 3-4 non-bloody BM's daily -Will obtain stool studies and C. diff PCR (5) Generalized weakness: Plan: -Due to his acute illness and dehydration -No focal neuro defects -Fall precautions, PT/OT consults (6) HTN (hypertension): Plan: -Stable -Continue metoprolol (7) GERD (gastroesophageal reflux disease): Plan: -Continue omeprazole (8) Hyperlipidemia: Plan: -Continue statin (9) Gout, joint: Plan: -Hold allopurinol for now until renal function improves Plan The patient was discussed with Dr. Kwan at the time of the admission History of Present Illness Chief Complaint: Flu symptoms Primary Care Provider: Mary Franklin MD Rigo is a 77 year old male with a PMH significant for Gout, hyperlipidemia, HTN, CAD S/P RCA stenting 1996, ramus intermedius stenting 2004, remote GI bleed secondary to gastritis, thrombocytopenia, and bradycardia who presented to the [facility] ED on 07/27/22 with flu-like symptoms and generalized weakness x 1.5 weeks. In the ED the patient was found to be afebrile, h emodynamically stable, and stable on RA. WBC of 3.29, platelets of 112, cr of 1.63 (baseline is approx 0.9), lactate of 2.6, initial high sen trop of 86, and influenza A +. Chest xray was read as "Asymmetric interstitial thickening within the left lung. This is likely artifactual. An infectious process or asymmetric pulmonary edema could appear similar.". Prior to admission the patient was given a 500 mL NSS bolus and a dose of Vancomycin to cover for possible MRSA pneumonia per the ED staff. At the time of the exam the patient was lying in bed in no acute distress. His is in the bed next to him as they are both being admitted. History was obtained from both patient's and their children who were sitting bedside. Both patient's had URI symptoms last month. Rigo was seen by their PCP on 07/08 and was prescribed a 5 day course of azithromycin, which he completed. They both had been feeling better until approximately 1-1.5 weeks ago when Rigo started developing URI symptoms again. Since then he has been having poor oral intake, minimally productive cough, SOB, and generalized weakness with intermittent confusion. He thinks that he forgot to take his HS medications last night. He has not had any recent falls and denies chest pain, abd pain, nausea, vomiting, dysuria, hematuria, melena, LE swelling. He does mention that he has been experiencing 3-4 episodes of non-bloody diarrhea over the past week. We discussed code status, he is a DNR/DNI and would want his children to make medical decisions for him if he cannot make them himself. Please refer to Dr. Kwan's attestation for any changes to the treatment plan Allergies Allergy/AdvReac Type Severity Reaction Status Date / Time ticlopidine Allergy Intermediate EYES AND Verified 07/27/22 17:30 FACE SWELL Iodinated Contrast Media Allergy Unknown HIVES Verified 07/27/22 17:30 triamterene AdvReac Diarrhea Verified 07/27/22 17:30 Home Medications Medication Instructions Recorded Confirmed Type acetaminophen 500 mg tablet 500 mg PO .Q4-6H PRN fever or pain 11/17/18 07/30/22 History nitroglycerin 0.4 mg sublingual 0.4 mg sublingual Q5M PRN chest 11/17/18 07/30/22 History tablet pain #25 tabs atorvastatin 40 mg tablet 40 mg PO DAILY #90 tabs 01/08/22 07/30/22 Rx metoprolol succinate 50 mg 50 mg PO QPM #90 tabs 01/08/22 07/30/22 Rx tablet,extended release 24 hr allopurinol 100 mg tablet 200 mg PO DAILY #180 tabs 06/12/22 07/30/22 Rx omeprazole 20 mg capsule,delayed 20 mg PO Q OTHER DAY #45 caps 06/12/22 07/30/22 Rx release aspirin 81 mg tablet,delayed 81 mg PO DAILY 07/27/22 07/30/22 History release nystatin 100,000 unit/mL oral 5 ml PO QID 10 days #200 mL 07/29/22 07/30/22 Rx suspension Past Med/Surg History Medical History (Updated 08/05/22 @ 07:17 by Mary Franklin MD) Abscess, perirectal (10/2018) Constipation Elevated liver enzymes Hemorrhoids Impaired fasting glucose Stasis dermatitis Thrombocytopenia Varicose vein of leg Surgical History S/P right coronary artery (RCA) stent placement (1996) Family History Mother No problems noted. 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 Required: No Beliefs That Will Affect Care: None marital status: Current Living Situation: Spouse current occupational status: retired How many Children do You have: 3 Feels Safe at Home: Yes Childhood Exposure to Second-Hand Smoke: Yes caffeine: Yes Dental Care, Regularly: Yes Physical Activity Frequency: Does not Exercise Seatbelt Use: always Sunscreen Use: No Assistive Devices: Cane Physical Exam Physical Exam: Physical Exam: General: In no acute distress, stated age, ill but non-toxic appearing HEENT: Normocephalic, atraumatic, no scleral icterus, pupils around round, symmetrical, and reactive to light, DRY mucus membranes, trachea midline, no thyromegaly Chest/Pulm: No respiratory distress, symmetrical chest expansion, expiratory wheezing noted throughout Cardiac: RRR, no murmurs noted Abdomen: Negative for ascites and bruising, normoactive bowel sounds, soft, non-tender to palpation throughout Musculoskeletal: Symmetrical and without signs of acute trauma, upper and lower extremities with full ROM, no atrophy, spasticity, or flaccidity Extremities: Radial, dorsalis pedis, and posterior tibial pulses are intact and symmetrical, no edema noted in the BL LE's Skin: Warm, dry, no rashes , lesions, or scars noted Neuro: Alert and oriented to person, place, month, year, no focal defects, CN II-XII tested and intact, no tremors noted Psych: No acute distress, calm and cooperative during the exam Results & Data Results & Data Vital Signs (Past 12 Hours) Vital Signs Temp Pulse Pulse Resp BP BP Pulse Ox 07/27/22 15:00 99 H 15 91 07/27/22 15:00 93 H 15 124/79 91 07/27/22 14:50 106 H 07/27/22 13:54 37.5 C 110 H 16 107/52 L 96 O2 Del Method 07/27/22 15:00 Room Air 07/27/22 15:00 Room Air 07/27/22 14:50 07/27/22 13:54 Laboratory Results Abnormal lab results 07/27/22 07/27/22 07/27/22 Range/Units 14:39 14:39 14:39 WBC 3.29 L (4.8-10.8) K/ul Plt Count 112 L (130-400) K/uL Lymph # (Auto) 0.87 L (1.2-3.4) K/uL VBG pCO2 (38-50) mmHg Sodium (136-145) mmol/L BUN 30 H (6-23) mg/dl Creatinine 1.63 H (0.6-1.4) mg/dl Glucose 125 H (70-99(Fasting)) mg/dl Lactate 2.6 H* (0.4-2.0) mmol/L Troponin I High Sens 86.0 H* (0-20) pg/ml Influenza Type A (PCR) (Neg) 07/27/22 07/27/22 07/27/22 Range/Units 14:39 14:50 17:01 WBC (4.8-10.8) K/ul Plt Count (130-400) K/uL Lymph # (Auto) (1.2-3.4) K/uL VBG pCO2 37 L (38-50) mmHg Sodium 133 L (136-145) mmol/L BUN (6-23) mg/dl Creatinine (0.6-1.4) mg/dl Glucose (70-99(Fasting)) mg/dl Lactate (0.4-2.0) mmol/L Troponin I High Sens (0-20) pg/ml Influenza Type A (PCR) Positive A* (Neg) Diagnostic Findings Chest X-Ray 07/27/22 14:28 XR chest 1V portable CLINICAL HISTORY: Weakness. Cough. Shortness of breath. COMPARISON STUDY: Chest radiograph June 16, 2015. FINDINGS: Low lung volumes are again noted. There is no pneumothorax or pleural fusion. Apparent asymmetric interstitial thickening within the left lung is noted. This probably technical/related to patient rotation. Cardiomediastinal silhouette is unremarkable. No consolidation is identified. IMPRESSION: Asymmetric interstitial thickening within the left lung. This is likely artifactual. An infectious process or asymmetric pulmonary edema could appear similar. ACT 112: Negative or not required by law. Electronically signed by: Long Mcdonald M.D. 07/27/2022 3:05 PM ECG Additional Comments: Poor data quality, interpretation may be adversely affected Sinus rhythm with Premature supraventricular complexes Inferior infarct (cited on or before 16-JUN-2015) Abnormal ECG When compared with ECG of 16-JUN-2015 08:01, Premature supraventricular complexes are now Present Nonspecific T wave abnormality no longer evident in Lateral leads Code Status & VTE Plan Code Status DNR/DNI VTE Prophylaxis Plan VTE Prophylaxis will be ordered: Yes Supervising Physician Co-Signing Physician Notes I personally saw and examined the patient. I verified all monk points and agree with Humphrey Monroe PA-C with the following exceptions and/or additions: 77 year old male presents to the ER with intermittent confusion and URI symptoms O/E HS RRR, no murmurs, Chest rhonchi b/l, no wheezing, Abdo SNT, CVA tenderness A/P TACOS - suspect pre-renal, IV fluids overnight. Repeat Cr in AM. Influenza A - symptoms > 48 hours, symptomatic management only PG Care Time/CCT Total # of Minutes Spent Total Time Spent with Patient: Total time spent is greater than 50% in coordination of care (as documented) at patient's floor/unit and/or counseling patient: Coding [place] [address] INT INP/OBS CARE 2/55MIN Patient Type Established Medical Decision Making Moderate Complexity Diagnoses TACOS (acute kidney injury) N17.9 Elevated troponin R77.8 Influenza A J10.1 Diarrhea R19.7 Generalized weakness R53.1 HTN (hypertension) I10 GERD (gastroesophageal reflux disease) K21.9 Hyperlipidemia E78.5 Gout, joint M10.9
[2022-07-27 17:33] LABS: Magnesium 2.1 mg/dl (1.7-2.4); Potassium 3.6 mmol/L (3.5-5.1)
[2022-07-27] MEDS ORDERED: LACTATED RINGER'S 1,000 ML IV SCH (18:00)
[2022-07-27] MEDS: ALBUT/IPRATROP 3MG/0.5MG NEB 3 ML VIAL NEB SCH (20:45)
[2022-07-27] MEDS ORDERED: ACETAMINOPHEN 325 MG TAB PO PRN (20:56)
[2022-07-27] MEDS ORDERED: ENOXAPARIN 0.5 MG/KG SQ SCH (20:56)
[2022-07-27] MEDS ORDERED: ENOXAPARIN INJ 30 MG/0.3 ML SYR SQ SCH (21:00)
[2022-07-27] MEDS ORDERED: PANTOprazole 40 MG TAB PO ONE (21:15)
[2022-07-27] MEDS: METOPROLOL SUCC 50MG EXT REL TAB PO SCH (21:52)
--- NOTE | 2022-07-27 22:12 | Electrocardiogram Report ---
Test Reason : Blood Pressure : / mmHG Vent. Rate : 100 BPM Atrial Rate : 100 BPM P-R Int : 178 ms QRS Dur : 064 ms QT Int : 320 ms P-R-T Axes : -06 -21 055 degrees QTc Int : 412 ms Poor data quality, interpretation may be adversely affected Sinus rhythm with Premature supraventricular complexes Inferior infarct (cited on or before 16-JUN-2015) Abnormal ECG When compared with ECG of 16-JUN-2015 08:01, Premature supraventricular complexes are now Present Confirmed by Harry May ([id number]) on 07/27/2022 10:12:15 PM Referred By: REFERRED SELF Confirmed By:Harry May
[2022-07-28 01:10] LABS: Adenovirus F 40/41 PCR Not Detected (NotDetected); Astrovirus PCR Not Detected (NotDetected); Campylobacter PCR Not Detected (NotDetected); Cryptosporidium PCR Not Detected (NotDetected); Cyclospora cayetanensis PCR Not Detected (NotDetected); Entamoeba histolytica PCR Not Detected (NotDetected); Enteroaggregative E.coli(EAEC) Not Detected (NotDetected); Enteropathogenic E.coli (EPEC) Not Detected (NotDetected); Enterotoxigenic E.coli (ETEC) Not Detected (NotDetected); Giardia lamblia PCR Not Detected (NotDetected); Norovirus GI/GII PCR Not Detected (NotDetected); Plesiomonas shigelloides PCR Not Detected (NotDetected); Rotavirus A PCR Not Detected (NotDetected); Salmonella PCR Not Detected (NotDetected); Sapovirus PCR Not Detected (NotDetected); Shiga-like Toxin E.coli (STEC) Not Detected (NotDetected); Shigella/Enteroinvasive E.coli Not Detected (NotDetected); Vibrio cholerae PCR Not Detected (NotDetected); Vibrio species PCR Not Detected (NotDetected); Yersinia enterocolitica PCR Not Detected (NotDetected)
[2022-07-28] MEDS: guaiFENesin SUGAR FREE 200 MG/10 ML UDC PO PRN ×2 (01:28→07:32)
[2022-07-28 06:48] LABS: Albumin Globulin Ratio 1.5 (0.9-2); Albumin Level 3.2 gm/dl (3.4-5.0); Bilirubin,Total 0.7 mg/dl (0.2-1.0); Creatinine Clr Calc Pharmacy 55.1 ml/min; Est GFR (African American) 64.3 ml/min; Est GFR (Non-African American) 55.5 ml/min; Globulin 2.1 gm/dl (2.5-4.0); Potassium 3.5 mmol/L (3.5-5.1); Total Protein 5.3 gm/dl (6.0-8.3)
[2022-07-28 06:53] LABS: Hematocrit (blood only) 38.7 % (42.0-52.0); Hemoglobin 13.9 g/dl (14.0-18.0); Mean Corpuscular Hemoglobin 30.4 pg (25.0-34.0); Mean Corpuscular Hgb Conc 35.9 g/dL (32.0-36.0); Mean Corpuscular Volume 84.7 fL (80.0-100.0); Mean Platelet Volume 10.4 fL (9.4-12.4); Platelet Count 81 K/uL (130-400); Platelet Estimate Decreased (Normal); RDW Coefficient of Variation 13.1 % (11.5-14.5); RDW Standard Deviation 40.1 fL (36.4-46.3); Red Blood Count 4.57 M/uL (4.70-6.10); White Blood Count 2.25 K/ul (4.8-10.8)
[2022-07-28] MEDS: ALBUT/IPRATROP 3MG/0.5MG NEB 3 ML VIAL NEB SCH ×4 (07:14→19:32)
[2022-07-28] MEDS: allopurinoL 100 MG TAB PO SCH (07:30)
[2022-07-28] MEDS: ASPIRIN 81 MG ECTAB PO SCH (07:30)
[2022-07-28] MEDS: ATORVASTATIN 40 MG TAB PO SCH (07:31)
[2022-07-28] MEDS: NSS + 20MEQ KCL 20 MEQ/1,000 ML BAG IV SCH ×2 (09:01→21:00)
--- NOTE | 2022-07-28 11:46 | Hospitalist Progress Note ---
Date of Service July 28, 2022 Assessment & Plan (1) TACOS (acute kidney injury): Plan: Creatinine improved to 1.2 with IV fluids. Monitor intake and output. Serial labs (2) Elevated troponin: Plan: Downtrending. No chest pain. No acute EKG changes. No evidence of acute coronary syndrome (3) Influenza A: Plan: Noted to be positive on admission but symptoms for approximately 1-1.5 weeks . Tamiflu therapy deferred. Symptomatic treatment. No evidence of bacterial pneumonia (4) Diarrhea: Plan: Probably virally mediated. Symptomatic treatment. Pending studies include stool studies and C. diff PCR (5) Generalized weakness: Plan: Supportive care. OT and PT. apparent viral etiology (6) HTN (hypertension): Plan: Stable . Continue metoprolol (7) GERD (gastroesophageal reflux disease): Plan: Stable. Continue omeprazole (8) Hyperlipidemia: Plan: Stable. Continue statin (9) Gout, joint: Plan: Stable. Hold allopurinol while hospitalized Plan Anticipate eventual discharge back to home. Hopefully tomorrowJuly 29 Admission and Anticipated Discharge Date Admission Date: July 27, 2022 Subjective Alert and oriented. No acute distress. Potassium replacement underway. Troponin is trending down. No evidence of acute coronary syndrome. Creatinine improved to 1.2. OT and PT evaluations ordered. Hopefully home tomorrowJuly 29 Review of Systems Review of Systems: Constitutional-no fever or chills. Malays from the flu ENT-no blurred vision, no double vision, no epistaxis, no sore throat Respiratory-no cough, no wheezing, no shortness of breath Cardiac-no palpitations, no chest pain, no syncope GI-no nausea, vomiting, diarrhea, melena, hematochezia -no urinary retention, no urinary incontinence, no dysuria, no hematuria Musculoskeletal-generalized weakness. Skin-no bruising, no rashes, no pruritus Neuro-generalized weakness. No focal deficits Psych-no depression, no anxiety Physical Exam Physical Exam: General-alert and oriented x3, no fevers, no chills HEENT-head atraumatic and normocephalic, pupils equal and reactive to light, extraocular muscles intact Neck-no lymphadenopathy or thyromegaly, trachea midline Chest-clear to auscultation percussion. No rales wheezing or rhonchi Cardiac-regular rate and rhythm, normal S1 and S2 Abdomen-normal bowel sounds, nontender, no hepatosplenomegaly Extremities-no cyanosis, clubbing, or edema Neuro-cranial nerves II through XII intact, motor and sensory function within normal limits, strength symmetrical , no focal deficits Psych-normal affect, normal mood Results & Data Results & Data Vital Signs (Past 12 Hours) Vital Signs Temp Pulse Pulse Resp BP BP Pulse Ox 07/28/22 11:31 79 18 96 07/28/22 08:01 36.5 C 75 18 150/73 H 95 07/28/22 07:40 80 18 91 07/28/22 07:10 66 07/28/22 02:42 37.3 C 50 L 16 137/73 91 O2 Del Method 07/28/22 11:31 Room Air 07/28/22 08:01 Room Air 07/28/22 07:40 Room Air 07/28/22 07:10 07/28/22 02:42 Room Air Laboratory Results 07/28/22 05:38 07/28/22 05:38 PG Care Time/CCT Total # of Minutes Spent Total Time Spent with Patient: Total time spent is greater than 50% in coordination of care (as documented) at patient's floor/unit and/or counseling patient: Coding Level of Care Code 66098 SUB INP/OBS CARE 3/50MIN Diagnoses TACOS (acute kidney injury) N17.9 Elevated troponin R77.8 Influenza A J10.1 Diarrhea R19.7 Generalized weakness R53.1 HTN (hypertension) I10 GERD (gastroesophageal reflux disease) K21.9 Hyperlipidemia E78.5 Gout, joint M10.9
[2022-07-28] MEDS ORDERED: ENOXAPARIN INJ 40 MG/0.4 ML SYR SQ SCH (21:00)
[2022-07-28] MEDS: METOPROLOL SUCC 50MG EXT REL TAB PO SCH (21:09)
[2022-07-29] MEDS: ALBUT/IPRATROP 3MG/0.5MG NEB 3 ML VIAL NEB SCH ×2 (07:10→10:47)
[2022-07-29] MEDS: allopurinoL 100 MG TAB PO SCH (08:01)
[2022-07-29] MEDS: ASPIRIN 81 MG ECTAB PO SCH (08:01)
[2022-07-29] MEDS: ATORVASTATIN 40 MG TAB PO SCH (08:01)
[2022-07-29 08:41] LABS: Hematocrit (blood only) 38.8 % (42.0-52.0); Hemoglobin 13.6 g/dl (14.0-18.0); Mean Corpuscular Hemoglobin 30.4 pg (25.0-34.0); Mean Corpuscular Hgb Conc 35.1 g/dL (32.0-36.0); Mean Corpuscular Volume 86.6 fL (80.0-100.0); Mean Platelet Volume 10.5 fL (9.4-12.4); Platelet Count 74 K/uL (130-400); RDW Coefficient of Variation 13.1 % (11.5-14.5); RDW Standard Deviation 40.8 fL (36.4-46.3); Red Blood Count 4.48 M/uL (4.70-6.10); White Blood Count 2.74 K/ul (4.8-10.8)
[2022-07-29] MEDS ORDERED: PANTOprazole 40 MG TAB PO SCH (09:00)
[2022-07-29 09:34] LABS: Albumin Globulin Ratio 1.6 (0.9-2); Albumin Level 3.4 gm/dl (3.4-5.0); BUN Creatinine Ratio 16.8 (10-20); Bilirubin,Total 0.7 mg/dl (0.2-1.0); Calcium 8.1 mg/dl (8.6-10.3); Est GFR (African American) 81.6 ml/min; Est GFR (Non-African American) 70.4 ml/min; Globulin 2.1 gm/dl (2.5-4.0); Potassium 3.6 mmol/L (3.5-5.1); Total Protein 5.5 gm/dl (6.0-8.3)
[2022-07-29] MEDS: NSS + 20MEQ KCL 20 MEQ/1,000 ML BAG IV SCH (10:29)
[2022-07-29] MEDS ORDERED: COUGH DROP (SUGAR FREE) LOZ 24 LOZ/1 BOX BUCCAL PRN (10:37)
--- NOTE | 2022-07-29 11:39 | Discharge Summary ---
Date of Service July 29, 2022 Admission HPI Per Admitting Provider Rigo is a 77 year old male with a PMH significant for Gout, hyperlipidemia, HTN, CAD S/P RCA stenting 1996, ramus intermedius stenting 2004, remote GI bleed secondary to gastritis, thrombocytopenia, and bradycardia who presented to the [facility] ED on 07/27/22 with flu-like symptoms and generalized weakness x 1.5 weeks. In the ED the patient was found to be afebrile, hemodynamically stable, and stable on RA. WBC of 3.29, platelets of 112, cr of 1.63 (baseline is approx 0.9), lactate of 2.6, initial high sen trop of 86, and influenza A +. Chest xray was read as "Asymmetric interstitial thickening within the left lung. This is likely artifactual. An infectious process or asymmetric pulmonary edema could appear similar.". Prior to admission the patient was given a 500 mL NSS bolus and a dose of Vancomycin to cover for possible MRSA pneumonia per the ED staff. At the time of the exam the patient was lying in bed in no acute distress. His is in the bed next to him as they are both being admitted. History was obtained from both patient's and their children who were sitting bedside. Both patient's had URI symptoms last month. Rigo was seen by their PCP on 07/08 and was prescribed a 5 day course of azithromycin, which he completed. They both had been feeling better until approximately 1-1.5 weeks ago when Rigo started developing URI symptoms again. Since then he has been having poor oral intake, minimally productive cough, SOB, and generalized weakness with intermittent confusion. He thinks that he forgot to take his HS medications last night. He has not had any recent falls and denies chest pain, abd pain, nausea, vomiting, dysuria, hematuria, melena, LE swelling. He does mention that he has been experiencing 3-4 episodes of non-bloody diarrhea over the past week. We discussed code status, he is a DNR/DNI and would want his children to make medical decisions for him if he cannot make them himself. Please refer to Dr. Kwan's attestation for any changes to the treatment plan Principal Diagnosis Influenza A, Pneumonia, TACOS, Demand ischemia Discharge Exam Constitutional WD/WN, vitals as above Eyes + anicteric sclerae ENMT oropharynx with diffuse erythema and white exudate on soft palate Respiratory normal respiratory effort, lungs clear to auscultation Cardiovascular Rate/Rhythm: regular rate and regular rhythm Heart Sounds: + murmur (2/6 systolic murmur at LLSB) Extremities: no edema Gastrointestinal (Abdomen) normal bowel sounds, soft, nontender, no hepatosplenomegaly Neurologic PERRL, EOMI, accommodation nl, no face palsy, no dysarthria Psychiatric A+Ox3, euthymic affect Discharge Data Allergies Allergy/AdvReac Type Severity Reaction Status Date / Time ticlopidine Allergy Intermediate EYES AND Verified 07/27/22 17:30 FACE SWELL Iodinated Contrast Media Allergy Unknown HIVES Verified 07/27/22 17:30 triamterene AdvReac Diarrhea Verified 07/27/22 17:30 Consultations 07/27/22 16:46 ED Decision to Admit Stat Hospital Course (1) TACOS (acute kidney injury): Creatinine improved to 1.0 with IV fluids. 2/2 diarrhea which is now resolved (2) Elevated troponin: Downtrended after admission, 2/2 demand ischemia of myocardium given known CAD in setting of acut eillness. No chest pain. No acute EKG changes. No evidence of acute coronary syndrome continue home ASA, statin ,beta rodney (3) Influenza A: Noted to be positive on admission but symptoms for approximately 1-1.5 weeks . Tamiflu therapy deferred. Symptomatic treatment. No evidence of bacterial pneumonia with neg Procal f/u CXR in 4 weeks to ensure resolution of infiltrates (4) Diarrhea: Likely virally mediated. Stool studies including stool and C. diff PCR are negative resolved (5) Generalized weakness: Supportive care. OT and PT deferred eval as he is independent in the room improved (6) HTN (hypertension): Stable . Continue metoprolol (7) GERD (gastroesophageal reflux disease): Stable. Continue omeprazole (8) Hyperlipidemia: Stable. Continue statin (9) Gout, joint: Stable. continue allopurinol no acute issues (10) Murmur: known mild follows with Cardiology as outpt (11) Thrombocytopenia: platelets low since at least 2018 pt unsure if has ever seen Hematology or had a workup for this I do not see any imaging of the spleen since 1999 at which time it was normal Caution with antiplatelet therapy but ok to continue ASA for now Viral illness also could be contributing Advised outpt f/u with PCP and also consider Heme referral Other cell lines normal ecept WBC count low here due to influenza f/u CBC in 1 week with PCP (12) Oral candidiasis: pt was on prdnisone prior to admission now with persistent dry sensation in throat despite po fluids with erythema and white exudate in OP start nystatin 5mL po qid x 10 days on discharge Plan Dispo-dc to home Total Time Total Time Spent Total Time Spent (In Minutes): 35 min Discharge Plan Discharge Items Patient Disposition: Home - Self-Care Reason For Visit: FLU SYMPTOMS AND GENERALIZED WEAKNESS Discharge Diagnosis: Influenza A, Acute kidney injury, generalized weakness Condition on Discharge: Good Activity: As commented below Lifting: Gradually increase as tolerated Bathing: No limitations Exercise/Sports: Gradually increase as tolerated Non-emergency contact: Primary Care Provider Call non-emergency contact if: you have any medication questions and your symptoms worsen Follow-up/Referrals: Mary Franklin MD [Primary Care Provider] - (Follow up within 1-2 weeks.) Diet: Heart Healthy Addtl Attending Provider Instructions: Please take a 10 day course of the nystatin swish and swallow for your thrush in the mouth. Otherwise, continue to gradually increase your activity level to normal and take cough medicine as needed. Your PCP should order you a follow chest xray in about 4 weeks to ensure the pneumonia from influenza is completely resolved. Pending Studies at Discharge: No Stand-Alone Forms: My [facility], Smoking Cessation Medications and DC Order Prescriptions: New nystatin 100,000 unit/mL suspension 5 ml PO QID 10 Days Qty: 200 0RF Rx Instructions: swish and swallow Continued atorvastatin 40 mg tablet 40 mg PO DAILY Qty: 90 3RF metoprolol succinate 50 mg tablet extended release 24 hr 50 mg PO QPM Qty: 90 3RF allopurinol 100 mg tablet 200 mg PO DAILY Qty: 180 3RF omeprazole 20 mg capsule,delayed release(DR/EC) 20 mg PO Q OTHER DAY Qty: 45 3RF nitroglycerin 0.4 mg tablet, sublingual 0.4 mg SL Q5M PRN (Reason: chest pain) Qty: 25 acetaminophen 500 mg tablet 500 mg PO .Q4-6H PRN (Reason: fever or pain) Patient Comments: 500 mg PO Q4-6H PRN; aspirin [Aspir-81] 81 mg Tablet,Delayed Release (Dr/Ec) 81 mg PO DAILY Discharge Orders: Discharge Order (Routine); Ordered 07/29/22 Ordered By: Susan Najera Admission Data Admit Date/Time: 07/27/22 17:19 Attending Provider: Susan Najera Admit Provider: Aguilar Kwan Primary Care Provider: Mary Franklin Other Providers: Aguilar Kwan Coding Level of Care Code 95223 INP/OBS DISCH >30 MIN Diagnoses TACOS (acute kidney injury) N17.9 Elevated troponin R77.8 Influenza A J10.1 Diarrhea R19.7 Generalized weakness R53.1 HTN (hypertension) I10 GERD (gastroesophageal reflux disease) K21.9 Hyperlipidemia E78.5 Gout, joint M10.9 Murmur R01.1 Thrombocytopenia D69.6 Oral candidiasis B37.0
== END 2022-07-29 13:06 | disposition home or self-care (01) ==
LOC: 2N 13:53 → ED 13:53 → SUATTDRO 17:19 → 2N 20:28

== ENCOUNTER 2023-11-17 09:38 | Inpatient (IN) ==
--- NOTE | 2023-11-17 09:50 | Emergency Department Note ---
Impression & Plan Headache ADMIT ED Provider Note HPI: History obtained from patient. The patient is a 78-year-old gentleman with history of memory impairment, hyperlipidemia, coronary artery disease, hypertension, GERD, thrombocytopenia, presents the emergency department with a chief complaint of headache. Patient states his headache started at some point last night but he is not sure exactly when. Patient states his call and schedule appointment with his PCP this morning. He was seen in his PCPs office and referred to the ER for further management as he stated he had a severe generalized headache with some right- sided neck pain. On arrival here to the ED the patient does not have any focal deficits. Patient is moderately hypertensive on arrival but otherwise hemodynamically stable. Patient does appear to be in mild distress secondary to pain, he is saturating well on room air and he is afebrile on arrival. Patient denies any recent fevers. ROS: - Per HPI Differential Diagnosis: Carotid artery dissection/vascular dissection, intracranial hemorrhage to include subarachnoid hemorrhage, stroke, meningitis, musculoskeletal headache/neck pain, hypertensive emergency, amongst other potential pathologies. *Outpatient medications and allergy history reviewed. PE: General: Alert HEENT: Normocephalic, trachea midline Eyes: Extraocular eye movement is intact, no scleral erythema Pulmonary: Clear to auscultation bilaterally, no wheezing Cardio: Regular rate and rhythm GI: Abdomen is soft to palpation : No suprapubic tenderness MSK: No evidence of trauma or malformation of the extremities, no edema, equal bilateral draw hand strength, symmetrical facial movements are appreciated Skin: No evidence of rash Neuro: Alert, no focal deficits Psychiatric: Cooperative NIH STROKE SCALE: 1A: Level of consciousness Alert; keenly responsive 0 1B: Ask month and age Both questions right 0 1C: 'Blink eyes' & 'squeeze hands' Performs both tasks 0 2: Horizontal extraocular movements Normal 0 3: Visual rea No visual loss 0 4: Facial palsy Normal symmetry 0 5A: Left arm motor drift No drift for 10 seconds 0 5B: Right arm motor drift No drift for 10 seconds 0 6A: Left leg motor drift No drift for 5 seconds 0 6B: Right leg motor drift No drift for 5 seconds 0 7: Limb Ataxia No ataxia 0 8: Sensation Normal; no sensory loss 0 9: Language/aphasia Normal; no aphasia 0 10: Dysarthria Normal 0 11: Extinction/inattention No abnormality 0 TOTAL NIH SCORE = 0 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 Lab work shows no leukocytosis, hemoglobin is normal, platelet count is slightly low at 118, CMP does not show any critical findings, troponin is negative x 1. EKG per my interpretation does not show any evidence of any acute ischemic changes. Given the patient's right- sided headache, CT angiography of the head and neck was obtained that does not show any evidence of acute intracranial hemorrhage. There is note of age- indeterminate lacunar infarct at 1.4 cm in the left basal ganglia and high-grade stenosis in the right posterior cerebral artery. 30% stenosis noted in the right common carotid and distal left internal carotid arteries. On my reassessment the patient states he is feeling improved following IV morphine and IV Zofran as well as pretreatment with IV Benadryl and IV Solu- Medrol for his CT angiography. He was also given IV fluids. He remained somewhat hypertensive and therefore was given a dose of IV labetalol in addition to these medications. I discussed all the above findings with the patient's and his son who are now at the bedside. The patient's expresses that he seems to have a decline in his memory and general mentation over about the past 6 months. She notes that his speech pattern seems to be worsening to the point where he is not able to form full sentences. I did inform them of the finding of age-indeterminate stroke on CT imaging and at this time I do think the patient would benefit from admission for further workup and likely MRI imaging of the brain. The patient and his family are in agreement, [facility] and the patient was admitted for further management. Consultants/Discussions held with other healthcare providers: -Hospitalist, Dr. Kwan Disposition discussion held by myself with: -Patient and patient's and son at the bedside Diagnosis: 1. Headache, acute 2. Age-indeterminate lacunar stroke on CT imaging 3. Memory impairment with progressive decline 4. Hypertension Disposition: Admission Dylon Thorne DO Emergency Medicine Past Med/Surg History Problem List (Updated 11/17/23 @ 14:49 by Dylon Thorne DO) Headache (Acute) Headache Bilateral thumb pain Excessive cerumen in left ear canal Sinus bradycardia Atrial ectopy Mild aortic stenosis Memory impairment Vitamin B 12 deficiency Decreased functional mobility Encounter for examination following treatment at hospital Oral candidiasis Thrombocytopenia Pneumonia (Acute) Influenza A Viral illness Bronchitis Olecranon bursitis of right elbow Bradycardia Right carotid bruit Systolic murmur Fatigue Screening for diabetes mellitus Routine health maintenance Carpal tunnel syndrome, left Ulnar neuropathy at wrist Vitamin D deficiency Screening PSA (prostate specific antigen) Bone/cartilage disorder Arthritis Dermatitis Gout, joint Hyperlipidemia Coronary artery disease HTN (hypertension) GERD (gastroesophageal reflux disease) Medical History Abscess, perirectal (10/2018) Constipation Elevated liver enzymes Hemorrhoids Impaired fasting glucose Stasis dermatitis Varicose vein of leg Thrombocytopenia Surgical History S/P right coronary artery (RCA) stent placement (1996) Family History Mother No problems noted. 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 Beliefs That Will Affect Care: None marital status: Current Living Situation: Spouse current occupational status: retired How many Children do You have: 3 Feels Safe at Home: Yes Childhood Exposure to Second-Hand Smoke: Yes Diet: regular caffeine: Yes (coffee and soda.) during the past year weight has: remained stable Dental Care, Regularly: Yes Physical Activity Frequency: Does not Exercise Seatbelt Use: always Sunscreen Use: No Assistive Devices: Cane and Glasses Allergies Allergies Allergy/AdvReac Type Severity Reaction Status Date / Time ticlopidine Allergy Intermediate EYES AND Verified 11/17/23 08:11 FACE SWELL Iodinated Contrast Media Allergy Unknown HIVES Verified 11/17/23 08:11 diclofenac [From Voltaren] AdvReac Mild Aches Verified 11/17/23 08:11 triamterene AdvReac Diarrhea Verified 11/17/23 08:11 Home Meds Home Medications Medication Instructions Recorded Confirmed acetaminophen 500 mg tablet 500 mg PO UD PRN fever or pain 11/17/18 11/17/23 aspirin 81 mg tablet,delayed 81 mg PO DAILY 07/27/22 11/17/23 release Previous Rx's Medication Instructions Recorded nitroglycerin 0.4 mg sublingual 0.4 mg sublingual Q5M PRN chest 05/13/23 tablet pain #25 tabs atorvastatin 40 mg tablet 40 mg PO DAILY #90 tabs 06/16/23 Results & Data (ED) Vital Signs Vital Signs - 24 hr 11/17/23 09:45 11/17/23 09:47 11/17/23 09:54 Temperature 36.4 C L Temperature Source Oral Pulse Rate 68 70 Pulse Rate [Apical] Pulse Rhythm Regular Pulse Strength Normal Pulse Strength [Apical] Respiratory Rate 22 Respiratory Effort / Characteristics Non-Labored Spontaneous Respiratory Depth Normal Respiratory Pattern Regular Blood Pressure 172/90 H Blood Pressure [Right Arm] Blood Pressure Mean 117 Blood Pressure Mean [Right Arm] Pulse Oximetry 100 94 Oxygen Delivery Method Room Air Room Air Sepsis Recent Fever Within 48 Hours No Sepsis New/Unexplained Change in Mental Status No Sepsis Action Taken by Nursing No Action Required 11/17/23 10:30 11/17/23 10:46 11/17/23 10:50 Temperature Temperature Source Pulse Rate Pulse Rate [Apical] 84 83 Pulse Rhythm Pulse Strength Pulse Strength [Apical] Normal Respiratory Rate 18 19 Respiratory Effort / Characteristics Non-Labored Non-Labored Spontaneous Respiratory Depth Normal Normal Respiratory Pattern Regular Regular Blood Pressure Blood Pressure [Right Arm] 208/110 H 171/115 H Blood Pressure Mean Blood Pressure Mean [Right Arm] 142 133 Pulse Oximetry 96 93 97 Oxygen Delivery Method Room Air Room Air Room Air Sepsis Recent Fever Within 48 Hours Sepsis New/Unexplained Change in Mental Status Sepsis Action Taken by Nursing 11/17/23 12:00 11/17/23 12:16 11/17/23 12:31 Temperature Temperature Source Pulse Rate 81 72 Pulse Rate [Apical] 81 Pulse Rhythm Pulse Strength Pulse Strength [Apical] Respiratory Rate 18 Respiratory Effort / Characteristics Respiratory Depth Respiratory Pattern Blood Pressure 173/100 H 161/111 H Blood Pressure [Right Arm] 170/95 H Blood Pressure Mean Blood Pressure Mean [Right Arm] 120 Pulse Oximetry 97 Oxygen Delivery Method Room Air Sepsis Recent Fever Within 48 Hours Sepsis New/Unexplained Change in Mental Status Sepsis Action Taken by Nursing Laboratory Data 11/17/23 09:50 11/17/23 09:50 Lab Results 11/17/23 11/17/23 Range/Units 09:50 09:53 WBC 9.37 (4.8-10.8) K/ul RBC 5.17 (4.70-6.10) M/uL Hgb 15.5 (14.0-18.0) g/dl POC Hgb 15.0 (14.0-18.0) g/dl Hct 44.1 (42.0-52.0) % POC Hct 44 (42-52) % MCV 85.3 (80.0-100.0) fL MCH 30.0 (25.0-34.0) pg MCHC 35.1 (32.0-36.0) g/dL RDW Std Deviation 38.2 (36.4-46.3) fL RDW Coeff of Paramjit 12.3 (11.5-14.5) % Plt Count 118 L (130-400) K/uL MPV 10.4 (9.4-12.4) fL Immature Gran % (Auto) 0.5 % Neut % (Auto) 81.4 % Lymph % (Auto) 8.2 % [place] % (Auto) 9.5 % Eos % (Auto) 0.1 % Baso % (Auto) 0.3 % Neut # (Auto) 7.62 H (1.40-6.50) K/uL Lymph # (Auto) 0.77 L (1.20-3.40) K/uL [place] # (Auto) 0.89 H (0.11-0.59) K/uL Eos # (Auto) 0.01 (0.00-0.50) K/uL Baso # (Auto) 0.03 (0.00-0.20) K/uL Immature Gran # (Auto) 0.05 (0.01-0.20) K/uL ESR 20 (0-20) mm/hr PT 10.8 (9.0-12.0) Seconds INR 1.0 (0.9-1.1) APTT 27 (21-31) Seconds PTT Ratio 1.0 POC Sodium 137 (135-144) mmol/L Sodium 137 (136-145) mmol/L POC Potassium 4.3 (3.3-5.0) mmol/L Potassium 4.3 (3.5-5.1) mmol/L POC Chloride 101 (101-112) mmol/L Chloride 103 (98-107) mmol/L Carbon Dioxide 27 (21-32) mmol/L POC Total CO2 23 L (24-31) mmol/L Anion Gap 7 (3-11) POC Anion Gap 18.0 (16-25) mmol/L POC BUN 18 (7-18) mg/dl BUN 19 (6-23) mg/dl Creatinine 0.97 (0.6-1.4) mg/dl POC Creatinine 1.1 (0.6-1.3) mg/dl Est Cr Clr Drug Dosing 67.0 ml/min Est GFR ( Amer) 85.1 ml/min Est GFR (Non-Af Amer) 73.4 ml/min BUN/Creatinine Ratio 19.6 (10-20) Glucose 149 H (70-99(Fasting)) mg/dl POC Glucose (other) 144 H (70-99) mg/dl Calcium 9.0 (8.6-10.3) mg/dl POC Ioniz Calcium Vlad 1.18 (1.12-1.32) mmol/l Total Bilirubin 1.2 H (0.2-1.0) mg/dl AST 16 (13-39) U/L ALT 9 (7-52) U/L Alkaline Phosphatase 92 (34-104) U/L Troponin I High Sens 6.8 (0-20) pg/ml Total Protein 6.6 (6.0-8.3) gm/dl Albumin 4.1 (3.4-5.0) gm/dl Globulin 2.5 (2.5-4.0) gm/dl Albumin/Globulin Ratio 1.6 (0.9-2) Adenovirus (PCR) Not Detected (NotDetected) B. pertussis DNA (PCR) Not Detected (NotDetected) B.parapertussis DNA PCR Not Detected (NotDetected) C. pneumoniae DNA (PCR) Not Detected (NotDetected) Coronavirus OC43 (PCR) Not Detected (NotDetected) Coronavirus HKU1 (PCR) Not Detected (NotDetected) Coronavirus 229E (PCR) Not Detected (NotDetected) SARS-CoV-2 (PCR) Not Detected (NotDetected) Coronavirus NL63 (PCR) Not Detected (NotDetected) Human Metapneumovir PCR Not Detected (NotDetected) Influenza Type A (PCR) Not Detected (NotDetected) Influenza Type B (PCR) Not Detected (NotDetected) M. pneumoniae (PCR) Not Detected (NotDetected) Parainfluenza 1 (PCR) Not Detected (NotDetected) Parainfluenza 2 (PCR) Not Detected (NotDetected) Parainfluenza 3 (PCR) Not Detected (NotDetected) Parainfluenza 4 (PCR) Not Detected (NotDetected) RSV (PCR) Not Detected (NotDetected) Entero/Rhino (PCR) Not Detected (NotDetected) Administered Medications Discontinued Medications Diphenhydramine HCl (Diphenhydramine 50 Mg/Ml Vial) 50 mg IV ONE ONE Stop: 11/17/23 09:48 Last Admin: 11/17/23 09:58 Dose: 50 mg Documented By: LILLY Sodium Chloride (Nss) 500 mls @ 999 mls/hr IV .Q31M ALLEN Stop: 11/17/23 10:30 Last Infusion: 11/17/23 10:32 Dose: Infused Documented By: Admin: 11/17/23 09:55 Dose: 999 mls/hr Documented By: LILLY Ioversol (Optiray 320 125ml) 117 ml IV ONCE ONE Stop: 11/17/23 10:17 Last Admin: 11/17/23 10:16 Dose: 117 ml Documented By: JAZMIN Labetalol HCl (Labetalol Hcl Iv 5 Mg/Ml 20ml) 10 mg IV NOW STA Stop: 11/17/23 12:01 Last Admin: 11/17/23 12:16 Dose: 10 mg Documented By: CORY Methylprednisolone (Methylprednisolone 125 Mg/2 Ml Vial) 40 mg IV NOW ONE Stop: 11/17/23 09:48 Last Admin: 11/17/23 09:59 Dose: 40 mg Documented By: LILLY Morphine Sulfate (Morphine Sulfate 2 Mg/Ml Carp) 2 mg IV NOW STA Stop: 11/17/23 10:53 Last Admin: 11/17/23 11:01 Dose: 2 mg Documented By: LILLY Ondansetron HCl (Ondansetron Inj 2 Mg/Ml 2 Ml Vial) 4 mg IV NOW STA Stop: 11/17/23 10:53 Last Admin: 11/17/23 11:00 Dose: 4 mg Documented By: LILLY Thiamine HCl (Thiamine Hcl 100 Mg/Ml 2 Ml Vial) 100 mg IM NOW STA Stop: 11/17/23 14:01 Last Admin: 11/17/23 14:28 Dose: Not Given Documented By: CORY Imaging Data Radiologist's Impression: Head CTA 11/17/23 09:47 CT angio head wo/w CLINICAL HISTORY: 78 years-old Male with Headache. Acute headache COMPARISON STUDY: CT neck same day TECHNIQUE: Unenhanced axial CT scan of the brain is performed. Subsequently, following the IV administration of 117 cc of Optiray, CT angiogram of the brain was performed from the skull base to the vertex. Images are reviewed in the axial, sagittal, and coronal planes. 3-D MIPS images are created and assessed. IV contrast was administered without complication. All measurements were obtained according to NASCET criteria. A dose lowering technique was utilized adhering to the principles of ALARA. FINDINGS: CT BRAIN: There is no acute intracranial hemorrhage, midline shift, hydrocephalus, intracranial mass, territorial ischemia or abnormal extra-axial collections. No abnormal intra-axial or extra-axial enhancement. Involutional changes with white matter hypodensities suggestive of chronic microvascular ischemic disease. Ill- defined 1.4 cm hypodense focus noted within the left basal ganglia involving the lentiform nucleus and also possibly the internal capsule. Mastoid air cells and middle ear cavities are clear. No calvarial fracture. Paranasal sinuses are clear. CT ANGIOGRAM OF THE BRAIN: Calcific plaque of the distal internal carotid arteries results in mild to moderate stenosis. The bilateral anterior and middle cerebral arteries are also patent. The vertebrobasilar system and posterior cerebral arteries are widely patent. origin of the posterior cerebral arteries which demonstrated multifocal [id number] stenosis. There is high-grade stenosis of the P1 segment on the right, image 96. There is no aneurysm, additional high-grade stenosis, or proximal branch occlusion identified. Dural sinuses appear patent. IMPRESSION: 1. Age-indeterminate lacunar infarct of the left basal ganglia measures 1.4 cm. 2. Involutional changes with chronic microvascular ischemic disease. 3. Short segment high-grade stenosis of the right posterior cerebral artery. 4. Otherwise unremarkable CTA of the head and neck. ACT 112: Negative or not required by law. The above report was generated using voice recognition software. It may contain grammatical, syntax or spelling errors. Electronically signed by: Skyler Vallejo M.D. 11/17/2023 11:28 AM Neck CTA 11/17/23 09:47 NECK CTA HISTORY: Headache TECHNIQUE: Multiaxial CT images of the neck were performed following the intravenous administration of contrast to evaluate the major cervical vessels. 3D/MIP images were also obtained. Sagittal and coronal reformats were reviewed. All measurements were calculated based on NASCET criteria. A dose lowering technique was utilized adhering to the principles of ALARA. COMPARISON STUDY: None. FINDINGS: The aortic arch and proximal great vessels are widely patent. Mild to moderate calcified plaque within the bilateral carotid bifurcations and proximal internal carotid arteries. This results in 30% stenosis within the distal right common carotid artery and 30% stenosis within the proximal left internal carotid artery. The remaining bilateral carotid arteries are widely patent. The bilateral vertebral arteries are also patent. No occlusion or dissection within the major cervical vessels. IMPRESSION: 1. Approximately 30% stenosis within the distal right common carotid artery and proximal left internal carotid artery. 2. The bilateral vertebral arteries are patent. ACT 112: Negative or not required by law. Electronically signed by: Herrera Katz M.D. 11/17/2023 10:42 AM Discharge Plan Visit Data Chief Complaint: Altered Mental Status Stated Complaint: HEADACHE, NECK PAIN ED Provider: Dylon Thorne Discharge Problem: Headache Discharge Problem: Headache Qualifiers: Headache type: unspecified Headache chronicity pattern: acute headache I ntractability: intractable Qualified Code(s): R51.9 - Headache, unspecified
[2023-11-17] MEDS: SODIUM CHLORIDE 0.9% 500 ML IV SCH (09:55)
[2023-11-17] MEDS: diphenhydrAMINE 50 MG/ML VIAL IV ONE (09:58)
[2023-11-17] MEDS: methylPREDNISolone 125 MG/2 ML VIAL IV ONE (09:59)
[2023-11-17 10:06] LABS: iSTAT Creatinine 1.1 mg/dl (0.6-1.3); iSTAT Ionized Calcium 1.18 mmol/l (1.12-1.32); iSTAT Potassium 4.3 mmol/L (3.3-5.0)
[2023-11-17 10:09] LABS: Basophils # (auto) 0.03 K/uL (0.00-0.20); Basophils % (auto) 0.3 %; Eosinophils # (auto) 0.01 K/uL (0.00-0.50); Eosinophils % (auto) 0.1 %; Hematocrit (blood only) 44.1 % (42.0-52.0); Hemoglobin 15.5 g/dl (14.0-18.0); Immature Granulocytes # (auto) 0.05 K/uL (0.01-0.20); Immature Granulocytes % (auto) 0.5 %; Lymphocytes # (auto) 0.77 K/uL (1.20-3.40); Lymphocytes % (auto) 8.2 %; Mean Corpuscular Hgb Conc 35.1 g/dL (32.0-36.0); Mean Corpuscular Volume 85.3 fL (80.0-100.0); Mean Platelet Volume 10.4 fL (9.4-12.4); Monocytes # (auto) 0.89 K/uL (0.11-0.59); Monocytes % (auto) 9.5 %; Neutrophils # (auto) 7.62 K/uL (1.40-6.50); Neutrophils % (auto) 81.4 %; Platelet Count 118 K/uL (130-400); RDW Coefficient of Variation 12.3 % (11.5-14.5); RDW Standard Deviation 38.2 fL (36.4-46.3); Red Blood Count 5.17 M/uL (4.70-6.10); White Blood Count 9.37 K/ul (4.8-10.8)
[2023-11-17] MEDS: OPTIRAY 320 125ml IV ONE (10:16)
[2023-11-17 10:20] LABS: Albumin Globulin Ratio 1.6 (0.9-2); Albumin Level 4.1 gm/dl (3.4-5.0); BUN Creatinine Ratio 19.6 (10-20); Bilirubin,Total 1.2 mg/dl (0.2-1.0); Est GFR (African American) 85.1 ml/min; Est GFR (Non-African American) 73.4 ml/min; Globulin 2.5 gm/dl (2.5-4.0); Potassium 4.3 mmol/L (3.5-5.1); Total Protein 6.6 gm/dl (6.0-8.3)
[2023-11-17 10:34] LABS: Troponin I High Sensitivity 6.8 pg/ml (0-20)
[2023-11-17 10:35] LABS: Partial Thromboplastin Time 27 Seconds (21-31); Prothrombin Time 10.8 Seconds (9.0-12.0)
--- NOTE | 2023-11-17 10:45 | CT Scan Report ---
NECK CTA HISTORY: Headache TECHNIQUE: Multiaxial CT images of the neck were performed following the intravenous administration o f contrast to evaluate the major cervical vessels. 3D/MIP images were also obtained. Sagittal and cor onal reformats were reviewed. All measurements were calculated based on NASCET criteria. A dose low ering technique was utilized adhering to the principles of ALARA. COMPARISON STUDY: None. FINDINGS: The aortic arch and proximal great vessels are widely patent. Mild to moderate calcified p laque within the bilateral carotid bifurcations and proximal internal carotid arteries. This results in 30% stenosis within the distal right common carotid artery and 30% stenosis within the proximal le ft internal carotid artery. The remaining bilateral carotid arteries are widely patent. The bilateral vertebral arteries are also patent. No occlusion or dissection within the major cervical vessels. IMPRESSION: 1. Approximately 30% stenosis within the distal right common carotid artery and proximal left interna l carotid artery. 2. The bilateral vertebral arteries are patent. ACT 112: Negative or not required by law. Electronically signed by: Herrera Katz M.D. 11/17/2023 10:42 AM
[2023-11-17] MEDS: ONDANSETRON INJ 2 MG/ML 2 ML VIAL IV STA (11:00)
[2023-11-17] MEDS: MoRPHine SULFATE 2 MG/ML CARP IV STA (11:01)
--- NOTE | 2023-11-17 11:30 | CT Scan Report ---
CT angio head wo/w CLINICAL HISTORY: 78 years-old Male with Headache. Acute headache COMPARISON STUDY: CT neck same day TECHNIQUE: Unenhanced axial CT scan of the brain is performed. Subsequently, following the IV adminis tration of 117 cc of Optiray, CT angiogram of the brain was performed from the skull base to the vert ex. Images are reviewed in the axial, sagittal, and coronal planes. 3-D MIPS images are created and a ssessed. IV contrast was administered without complication. All measurements were obtained according to NASCET criteria. A dose lowering technique was utilized adhering to the principles of ALARA. FINDINGS: CT BRAIN: There is no acute intracranial hemorrhage, midline shift, hydrocephalus, intracranial mass, territori al ischemia or abnormal extra-axial collections. No abnormal intra-axial or extra-axial enhancement. Involutional changes with white matter hypodensities suggestive of chronic microvascular ischemic dis ease. Ill-defined 1.4 cm hypodense focus noted within the left basal ganglia involving the lentiform nucleus and also possibly the internal capsule. Mastoid air cells and middle ear cavities are clear. No calvarial fracture. Paranasal sinuses are clear. CT ANGIOGRAM OF THE BRAIN: Calcific plaque of the distal internal carotid arteries results in mild to moderate stenosis. The berto ateral anterior and middle cerebral arteries are also patent. The vertebrobasilar system and posterio r cerebral arteries are widely patent. origin of the posterior cerebral arteries which demonstr ated multifocal [id number] stenosis. There is high-grade stenosis of the P1 segment on the righ t, image 96. There is no aneurysm, additional high-grade stenosis, or proximal branch occlusion ident ified. Dural sinuses appear patent. IMPRESSION: 1. Age-indeterminate lacunar infarct of the left basal ganglia measures 1.4 cm. 2. Involutional changes with chronic microvascular ischemic disease. 3. Short segment high-grade stenosis of the right posterior cerebral artery. 4. Otherwise unremarkable CTA of the head and neck. ACT 112: Negative or not required by law. The above report was generated using voice recognition software. It may contain grammatical, syntax o r spelling errors. Electronically signed by: Skyler Vallejo M.D. 11/17/2023 11:28 AM
[2023-11-17 11:51] LABS: Adenovirus PCR Not Detected (NotDetected); Bordetella parapertussis PCR Not Detected (NotDetected); Bordetella pertussis PCR Not Detected (NotDetected); Chlamydia pneumoniae PCR Not Detected (NotDetected); Coronavirus 229E PCR Not Detected (NotDetected); Coronavirus CoV-2 (COVID19)PCR Not Detected (NotDetected); Coronavirus HKU1 PCR Not Detected (NotDetected); Coronavirus NL63 PCR Not Detected (NotDetected); Coronavirus OC43PCR Not Detected (NotDetected); Human Metapneumovirus PCR Not Detected (NotDetected); Influenza A PCR Not Detected (NotDetected); Influenza B PCR Not Detected (NotDetected); Mycoplasma pneumoniae PCR Not Detected (NotDetected); Parainfluenza Virus 1 PCR Not Detected (NotDetected); Parainfluenza Virus 2 PCR Not Detected (NotDetected); Parainfluenza Virus 3 PCR Not Detected (NotDetected); Parainfluenza Virus 4 PCR Not Detected (NotDetected); Respiratory Syncytial VirusPCR Not Detected (NotDetected); Rhinovirus/Enterovirus PCR Not Detected (NotDetected)
--- NOTE | 2023-11-17 12:08 | History & Physical Report ---
Date of Service November 17, 2023 Assessment & Plan (1) Left-sided cerebrovascular accident (CVA): Plan: Acute onset of head and neck pain on the evening of 11/15 Patient denies trauma to the head or neck No facial droop or unilateral deficits noted; patient's is present, and reports he has had gradually worsening slurred speech x 6 months, but no acute changes over the past 24 hours TNKase not indicated based on timeline of symptoms Head CTA revealed an age-indeterminate lacunar infarct and microvascular changes Brain MRI came back suggesting an acute 1.5cm left lentiform nuclear infarct Echocardiogram ordered, pending Dysphagia screen Neurochecks q4h Acetaminophen as needed for pain/fever PT/OT evaluations appreciated Speech therapy evaluation appreciated Neurology consulted Continue aspirin daily; will add on Plavix daily (dependent on allergy, and how well he does with trial of Plavix 75 mg x 1) A.m. CBC, CMP, CRP, mag, fasting lipid panel, A1c (2) Thrombocytopenia: Plan: Mild; 118 on arrival Patient reports that he does take aspirin intermittently Continue to monitor with daily CBC (3) Hyperlipidemia: Plan: Continue atorvastatin Follow a.m. fasting lipid panel (4) Coronary artery disease: Plan: S/p right RCA stenting Continue anitplatelets (5) HTN (hypertension): Plan: Patient is not on antihypertensives at baseline Permissive HTN in the setting of strokelike symptoms; labetalol 5mg IV q6h as needed for SBP>220 or DBP><120 (6) Memory impairment: Plan: Per , this has been ongoing with a gradual decline over the past 6 months (7) Vitamin B 12 deficiency: Plan: Vit B12 level ordered, pending Not currently on supplements (8) Stroke-like symptoms: (9) Headache: Plan Disposition: Admit to PCU telemetry DNR/DNI Heart healthy diet VTE PPx: SCDs History of Present Illness Chief Complaint: Acute onset of headache, altered mental status Primary Care Provider: Mary Franklin MD Rigo is an 78-year-old male with PMH of GERD, HTN, coronary artery disease, HLD, gout, arthritis, memory impairment, and vitamin B12 deficiency. He presented via EMS on 11/16 from his PCPs office for acute onset of headache and neck pain that began the evening of 11/15. Patient's is at the bedside and provides additional history. She reports that the headache started intermittently yesterday evening, but then was constant throughout the night in the morning. Patient reports that it is located mainly on the right side of his head wrapping around to the back; he also endorses bilateral lower posterior neck pain. Patient took Tylenol last night prior to coming in. He describes it as a 9/10 pain after receiving pain medicine in the ED, and 10/10 at worst. Patient does report that he was out working on bushes the other day and scratched his left arm. He also has a rash on his left upper thigh which patient's did not notice until today. Patient did not take any of his regular morning medication today; he reports he usually takes it at night. He does take aspirin, but does not take it every day. History of heart stent. No prior history of CVA the patient or 's knowledge. No sick contacts. Patient denies any recent falls or trauma to the head or neck. Patient wears glasses at baseline. Per , he has had a gradual decline over the past 6 months; slurred speech has been ongoing, and she denies any acute changes in the past 24 hours. Patient does have a listed allergy for ticlopidine; when asked, patient's does not remember what specifically happened during the allergic reaction as it was around 30 years ago. Patient's /son do not believe he had an anaphylactic reaction, or his throat closed up, and believes it might of been more mild like a rash, or something along the line of hives. Patient and patient's family are amenable to trying a small dose of Plavix in the ED and reassessing as needed. Patient denies smoking, tobacco use, recent alcohol use. Patient is hypertensive at 171/115 at time of admission; vitals otherwise stable. ED course: Diphenhydramine 50 mg IV Methylprednisolone 40 mg IV NSS 500 mL IV Morphine sulfate 2 mg IV Zofran 4 mg IV Labetalol 10 mg IV ROS: Patient endorses severe headache, neck pain/stiffness (difficulty turning head due to pain). Patient denies fever, chills, night-sweats, dizziness, lightheadedness, facial droop, changes in slurred speech, unilateral deficits, changes in vision, photophobia, pain in ears, changes in taste/smell/hearing, chest pain, SOB, abdominal pain, N/V/D, changes in urinary/bowel habits, blood in the urine/stool, or numbness/tingling in the arms. Allergies Allergy/AdvReac Type Severity Reaction Status Date / Time ticlopidine Allergy Intermediate EYES AND Verified 11/17/23 08:11 FACE SWELL Iodinated Contrast Media Allergy Unknown HIVES Verified 11/17/23 08:11 diclofenac [From Voltaren] AdvReac Mild Aches Verified 11/17/23 08:11 triamterene AdvReac Diarrhea Verified 11/17/23 08:11 Home Medications Medication Instructions Recorded Confirmed Type acetaminophen 500 mg tablet 500 mg PO UD PRN fever or pain 11/17/18 11/17/23 History aspirin 81 mg tablet,delayed 81 mg PO DAILY 07/27/22 11/17/23 History release nitroglycerin 0.4 mg sublingual 0.4 mg sublingual Q5M PRN chest 05/13/23 11/17/23 Rx tablet pain #25 tabs atorvastatin 40 mg tablet 40 mg PO DAILY #90 tabs 06/16/23 11/17/23 Rx clopidogrel 75 mg tablet 75 mg PO QAM 30 days #30 tabs 11/18/23 Rx Past Med/Surg History Problem List (Updated 11/18/23 @ 09:51 by Ulysses Joseph MD) Dyslipidemia HTN (hypertension) Acute CVA (cerebrovascular accident) Left-sided cerebrovascular accident (CVA) Stroke-like symptoms Headache (Acute) Headache Bilateral thumb pain Excessive cerumen in left ear canal Sinus bradycardia Atrial ectopy Mild aortic stenosis Memory impairment Vitamin B 12 deficiency Decreased functional mobility Encounter for examination following treatment at hospital Oral candidiasis Thrombocytopenia Pneumonia (Acute) Influenza A Viral illness Bronchitis Olecranon bursitis of right elbow Bradycardia Right carotid bruit Systolic murmur Fatigue Screening for diabetes mellitus Routine health maintenance Carpal tunnel syndrome, left Ulnar neuropathy at wrist Vitamin D deficiency Screening PSA (prostate specific antigen) Bone/cartilage disorder Arthritis Dermatitis Gout, joint Hyperlipidemia Coronary artery disease GERD (gastroesophageal reflux disease) Medical History (Updated 11/18/23 @ 09:51 by Ulysses Joseph MD) Abscess, perirectal (10/2018) Constipation Elevated liver enzymes Hemorrhoids Impaired fasting glucose Stasis dermatitis Varicose vein of leg Surgical History S/P right coronary artery (RCA) stent placement (1996) Family History Mother , age in mid 70s No problems noted. Father , in later 70s of an CT Myocardial infarction Brother Myocardial infarction Denies family history of Ovarian cancer Prostate cancer Breast cancer Colorectal cancer Social History (Updated 11/18/23 @ 09:44 by Ulysses Joseph MD) Smoking Status: Former smoker Tobacco Type: Cigarettes Age Started Using Tobacco: 18; Age Quit Using Tobacco: 23; Second Hand Exposure: No; Do You Dip or Chew Tobacco: No; Hx Alcohol Use: No Hx Substance Use: No Preferred Language: Slovak Communication Ability: Effective Visual Impairment: Limited Hearing Ability: Normal Nursing Support Worker Required: No Beliefs That Will Affect Care: None marital status: Current Living Situation: Spouse and Family Current Living Situation Comment: and Adult Son. 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 How many Children do You have: 3 Feels Safe at Home: Yes Childhood Exposure to Second-Hand Smoke: Yes Diet: regular caffeine: Yes (coffee and soda.) during the past year weight has: remained stable Dental Care, Regularly: Yes Physical Activity Frequency: Does not Exercise Seatbelt Use: always Sunscreen Use: No Assistive Devices: Cane and Other Review of Systems 2 Review of Systems: See HPI above Physical Exam 2 Physical Exam: General: Moderate physical distress secondary to headache; non-toxic appearing; well-nourished; cooperative HEENT: normocephalic, atraumatic; no scleral icterus; PERRLA w/ EOMs intact; vision and hearing grossly intact; patient demonstrates ability to protrude and wiggle tongue bilaterally without deficits; patient demonstrates ability to smile, frown, and raise eyebrows without unilateral deficits Neck: supple; no lymphadenopathy; trachea midline; patient demonstrates ability to shrug shoulders bilaterally without pain, but rotating neck left and right does replicate pain Skin: warm, dry without signs of tenting; no cyanosis; nonblanchable rashes noted on the left upper thigh (see photo below); excoriations are noted on the left upper and lower arm CV: chest wall NTP; RRR; S1/S2 normal; no murmurs/rubs/gallops; pulses intact and symmetric at radial, DP, and PT Lungs: no acute respiratory distress; symmetrical chest wall expansion; clear breath sounds across all lung rea w/o adventitious sounds; no wheezing ABD: Soft, NTP; BS present; no rebound/guarding; no distention MSK: no tics or fasciculations; no edema noted in the LEs b/l, nonerythematous; 5/5 data center manager strength bilaterally; patient demonstrates ability to wiggle toes bilaterally Neuro: Patient is alert and oriented to name//location, but not month or season; he occasionally has incoherent thought processes; no facial droop; fluent speech; no focal deficits; sensation grossly intact in the face/UEs/LEs b/l; negative pronator drift Results & Data Results & Data Vital Signs (Past 12 Hours) Vital Signs Temp Pulse Pulse Resp BP BP Pulse Ox 11/17/23 10:50 83 19 171/115 H 97 11/17/23 10:46 93 11/17/23 10:30 84 18 208/110 H 96 11/17/23 09:54 94 11/17/23 09:47 36.4 C L 70 22 172/90 H 100 11/17/23 09:45 68 O2 Del Method 11/17/23 10:50 Room Air 11/17/23 10:46 Room Air 11/17/23 10:30 Room Air 11/17/23 09:54 Room Air 11/17/23 09:47 Room Air 11/17/23 09:45 Laboratory Results Abnormal lab results 11/17/23 11/17/23 Range/Units 09:50 09:53 Plt Count 118 L (130-400) K/uL Neut # (Auto) 7.62 H (1.40-6.50) K/uL Lymph # (Auto) 0.77 L (1.20-3.40) K/uL [place] # (Auto) 0.89 H (0.11-0.59) K/uL POC Total CO2 23 L (24-31) mmol/L Glucose 149 H (70-99(Fasting)) mg/dl POC Glucose (other) 144 H (70-99) mg/dl Total Bilirubin 1.2 H (0.2-1.0) mg/dl Diagnostic Findings Head CTA 11/17/23 09:47 CT angio head wo/w CLINICAL HISTORY: 78 years-old Male with Headache. Acute headache COMPARISON STUDY: CT neck same day TECHNIQUE: Unenhanced axial CT scan of the brain is performed. Subsequently, following the IV administration of 117 cc of Optiray, CT angiogram of the brain was performed from the skull base to the vertex. Images are reviewed in the axial, sagittal, and coronal planes. 3-D MIPS images are created and assessed. IV contrast was administered without complication. All measurements were obtained according to NASCET criteria. A dose lowering technique was utilized adhering to the principles of ALARA. FINDINGS: CT BRAIN: There is no acute intracranial hemorrhage, midline shift, hydrocephalus, intracranial mass, territorial ischemia or abnormal extra-axial collections. No abnormal intra-axial or extra-axial enhancement. Involutional changes with white matter hypodensities suggestive of chronic microvascular ischemic disease. Ill- defined 1.4 cm hypodense focus noted within the left basal ganglia involving the lentiform nucleus and also possibly the internal capsule. Mastoid air cells and middle ear cavities are clear. No calvarial fracture. Paranasal sinuses are clear. CT ANGIOGRAM OF THE BRAIN: Calcific plaque of the distal internal carotid arteries results in mild to moderate stenosis. The bilateral anterior and middle cerebral arteries are also patent. The vertebrobasilar system and posterior cerebral arteries are widely patent. origin of the posterior cerebral arteries which demonstrated multifocal [id number] stenosis. There is high-grade stenosis of the P1 segment on the right, image 96. There is no aneurysm, additional high-grade stenosis, or proximal branch occlusion identified. Dural sinuses appear patent. IMPRESSION: 1. Age-indeterminate lacunar infarct of the left basal ganglia measures 1.4 cm. 2. Involutional changes with chronic microvascular ischemic disease. 3. Short segment high-grade stenosis of the right posterior cerebral artery. 4. Otherwise unremarkable CTA of the head and neck. ACT 112: Negative or not required by law. The above report was generated using voice recognition software. It may contain grammatical, syntax or spelling errors. Electronically signed by: Skyler Vallejo M.D. 11/17/2023 11:28 AM Neck CTA 11/17/23 09:47 NECK CTA HISTORY: Headache TECHNIQUE: Multiaxial CT images of the neck were performed following the intravenous administration of contrast to evaluate the major cervical vessels. 3D/MIP images were also obtained. Sagittal and coronal reformats were reviewed. All measurements were calculated based on NASCET criteria. A dose lowering technique was utilized adhering to the principles of ALARA. COMPARISON STUDY: None. FINDINGS: The aortic arch and proximal great vessels are widely patent. Mild to moderate calcified plaque within the bilateral carotid bifurcations and proximal internal carotid arteries. This results in 30% stenosis within the distal right common carotid artery and 30% stenosis within the proximal left internal carotid artery. The remaining bilateral carotid arteries are widely patent. The bilateral vertebral arteries are also patent. No occlusion or dissection within the major cervical vessels. IMPRESSION: 1. Approximately 30% stenosis within the distal right common carotid artery and proximal left internal carotid artery. 2. The bilateral vertebral arteries are patent. ACT 112: Negative or not required by law. Electronically signed by: Herrera Katz M.D. 11/17/2023 10:42 AM ECG Additional Comments: ECG revealed sinus rhythm with marked sinus arrhythmia and occasional PVCs at 60 bpm; QTc 434 Code Status & VTE Plan Code Status DNR/DNI VTE Prophylaxis Plan VTE Prophylaxis will be ordered: Yes Supervising Physician Co-Signing Physician Notes I personally saw and examined the patient. I independently reviewed the labs, imaging, problem list, medication list, past medical history and family history. I verified all monk points and agree with Herrera Rico PA-C with the following exceptions and/or additions: 78 year old presents with months of memory decline, more acute decline with balance over last 2 weeks. Severe headache and right sided neck pain since Friday night. O/E A&Ox3, mild fatigue, HS RRR, no murmurs, Chest CTAB, Abdo SNT, CN 2-> 12 intact, no extremity weakness and sensation deficit A/P Acute 1.5 cm left lentiform nuclear infarct - TTE, monitor on telemetry, Start aspirin + clopidogrel + atorvastatin, consult neurology Headache - tension vs. related to acute infarct B12 deficiency - ongoing memory problems and B12 < 400, start IM injections PG Care Time/CCT Total # of Minutes Spent Total Time Spent with Patient: Total time spent is greater than 50% in coordination of care (as documented) at patient's floor/unit and/or counseling patient: Coding [place] [address] INT INP/OBS CARE 3/75MIN Patient Type Established Medical Decision Making High Complexity Diagnoses Left-sided cerebrovascular accident (CVA) I63.9 Thrombocytopenia D69.6 Mixed hyperlipidemia E78.2 Hyperlipidemia type: mixed hyperlipidemia Coronary artery disease involving [place] coronary artery of [place] heart without angina pectoris I25.10 Associated angina: without angina Coronary Disease-Associated Artery/Lesion type: [place] artery [place] vs. transplanted heart: [place] heart Primary hypertension I10 Hypertension type: primary hypertension Memory impairment R41.3 Vitamin B 12 deficiency E53.8 Stroke-like symptoms R29.90 Headache R51.9 (3) Hyperlipidemia Hyperlipidemia type: mixed hyperlipidemia Qualified Code(s): E78.2 - Mixed hyperlipidemia (4) Coronary artery disease Associated angina: without angina Coronary Disease-Associated Artery/Lesion type: [place] artery [place] vs. transplanted heart: [place] heart Qualified Code(s): I25.10 - Atherosclerotic heart disease of [place] coronary artery without angina pectoris (5) HTN (hypertension) Hypertension type: primary hypertension Qualified Code(s): I10 - Essential (primary) hypertension
[2023-11-17] MEDS: LABETALOL HCL IV 5 MG/ML 20ML IV STA ×2 (12:16→19:30)
[2023-11-17] MEDS ORDERED: PHARMACIST DISCHARGE MED REC CONSULT PRN (12:56)
[2023-11-17] MEDS ORDERED: CYANOCOBALAMIN 1000 MCG/ML VIAL IM STA (14:08)
[2023-11-17] MEDS: THIAMINE HCL 100 MG/ML 2 ML VIAL IM STA (14:28)
[2023-11-17] MEDS ORDERED: ONDANSETRON INJ 2 MG/ML 2 ML VIAL IV PRN (14:48)
[2023-11-17] MEDS ORDERED: ACETAMINOPHEN 325 MG TAB PO PRN (14:48)
[2023-11-17] MEDS: ASPIRIN 81 MG ECTAB PO STA (14:56)
--- NOTE | 2023-11-17 15:21 | Magnetic Resonance Report ---
MR brain wo con HISTORY: 78 years-old Male Acute onset of severe right-sided LAO acute headache COMPARISON: CTA head and neck of same day TECHNIQUE: Multiplanar multisequence MRI of the brain was obtained without IV contrast FINDINGS: There is an acute 1.5 cm infarct involving the left lentiform nucleus. This demonstrates decreased si gnal on ADC map with increased T2/FLAIR signal. No acute or subacute territorial infarct. No acute in tracranial hemorrhage, midline shift, abnormal extra-axial collection, hydrocephalus or definite intr a-axial mass. No pathologic blooming artifact on the T2*series. Mild involutional changes with mild s cattered T2/FLAIR hyperintense foci throughout the white matter. Cerebral venous sinuses and major arterial flow voids appear patent. Skull, orbits and soft tissues a re unremarkable. Trace mastoid effusions. Mild mucosal thickening of the paranasal sinuses. IMPRESSION: Confirmation of the acute 1.5 cm left lentiform nuclear infarct. ACT 112: Negative or not required by law. The above report was generated using voice recognition software. It may contain grammatical, syntax o r spelling errors. Electronically signed by: Skyler Vallejo M.D. 11/17/2023 3:18 PM
[2023-11-17] MEDS: CLOPIDOGREL BISULFATE 75 MG TAB PO ONE (16:19)
[2023-11-17 17:50] LABS: Thyroid Stimulating Hormone 3.341 uIu/ml (0.300-4.500)
--- NOTE | 2023-11-17 17:50 | XCELERA ---
[id number]
[2023-11-17] MEDS: CYANOCOBALAMIN 1000 MCG/ML VIAL IM SCH (17:55)
[2023-11-17] MEDS: LABETALOL HCL IV 5 MG/ML 20ML IV PRN (18:07)
[2023-11-17] MEDS ORDERED: LABETALOL HCL IV 5 MG/ML 20ML IV PRN ×2 (18:50→21:31)
[2023-11-17] MEDS: CLOPIDOGREL BISULFATE 75 MG TAB PO STA (20:21)
--- NOTE | 2023-11-18 06:15 | Electrocardiogram Report ---
Test Reason : Blood Pressure : / mmHG Vent. Rate : 060 BPM Atrial Rate : 060 BPM P-R Int : 202 ms QRS Dur : 082 ms QT Int : 434 ms P-R-T Axes : 020 -31 033 degrees QTc Int : 434 ms Sinus rhythm with marked sinus arrhythmia with occasional Premature ventricular complexes Left axis deviation Inferior infarct (cited on or before 16-JUN-2015) Abnormal ECG When compared with ECG of 27-JUL-2022 14:44, Premature ventricular complexes are now Present Vent. rate has decreased BY 40 BPM Questionable change in QRS duration Confirmed by Harry May ([id number]) on 11/18/2023 6:15:12 AM Referred By: Confirmed By:Harry May
[2023-11-18] MEDS: ASPIRIN 81 MG ECTAB PO SCH (07:53)
[2023-11-18] MEDS: ATORVASTATIN 40 MG TAB PO SCH (07:53)
[2023-11-18] MEDS: CLOPIDOGREL BISULFATE 75 MG TAB PO SCH (07:53)
[2023-11-18 08:10] LABS: Basophils # (auto) 0.02 K/uL (0.00-0.20); Basophils % (auto) 0.2 %; Hematocrit (blood only) 47.4 % (42.0-52.0); Hemoglobin 16.4 g/dl (14.0-18.0); Immature Granulocytes # (auto) 0.06 K/uL (0.01-0.20); Immature Granulocytes % (auto) 0.5 %; Lymphocytes # (auto) 1.24 K/uL (1.20-3.40); Lymphocytes % (auto) 10.3 %; Mean Corpuscular Hemoglobin 29.7 pg (25.0-34.0); Mean Corpuscular Hgb Conc 34.6 g/dL (32.0-36.0); Mean Corpuscular Volume 85.9 fL (80.0-100.0); Mean Platelet Volume 10.2 fL (9.4-12.4); Monocytes # (auto) 0.97 K/uL (0.11-0.59); Neutrophils # (auto) 9.76 K/uL (1.40-6.50); Platelet Count 142 K/uL (130-400); RDW Coefficient of Variation 12.4 % (11.5-14.5); RDW Standard Deviation 38.9 fL (36.4-46.3); Red Blood Count 5.52 M/uL (4.70-6.10); White Blood Count 12.05 K/ul (4.8-10.8)
--- NOTE | 2023-11-18 08:13 | Hospitalist Progress Note ---
Date of Service November 18, 2023 Assessment & Plan (1) Left-sided cerebrovascular accident (CVA): (2) Thrombocytopenia: (3) Hyperlipidemia: (4) Coronary artery disease: (5) HTN (hypertension): (6) Memory impairment: (7) Vitamin B 12 deficiency: (8) Stroke-like symptoms: (9) Headache: Plan Acute Stroke: Acute onset of head and neck pain on the evening of 11/15 Head CTA revealed an age-indeterminate lacunar infarct and microvascular changes Brain MRI came back suggesting an acute 1.5cm left lentiform nuclear infarct TTE unremarkable. PT/OT evaluations completed, recommending discharge to home Speech therapy evaluation completed, no further recs Neurology consulted recs appreciated; - Recommend DAPT x 21 days followed by Plavix alone - Total cholesterol 162, will continue Atorvastatin 40 mg daily Vitamin B12 deficiency: Repletion ordered. HTN: Currently not on antihypertensive medications. Recommend home monitoring in the outpatient setting. HLD: Continue Atorvastatin 40mg daily Heart healthy diet VTE PPx: Lovenox Admission and Anticipated Discharge Date Admission Date: November 17, 2023 Supervising Physician Co-Signing Physician Notes I personally examined the patient and verified all monk points of history and exam, discussed case, and agree with decision making with Dr De La Vega Headache gone. Neck pain persists. No longer confused. Vitals noted, in general he is awake and alert oriented pleasant no distress. HEENT normocephalic atraumatic mucous membranes moist. Left-sided suboccipital and paraspinal musculature high tone, tender, decreased range of motionnote this really seems to be more focal somatic dysfunction not consistent with nuchal rigidity. Mental status shows him to be intact. Exam otherwise as above. Acute 1.5 cm left lentiform nuclear infarct - Continue aspirin and Plavix, monitor blood pressure (especially as an outpatient) continue atorvastatin at current dose. Appreciate neurology input. Otherwise as above. Headache - Given that his autoregulation blood pressure numbers were quite high, combined with the fact that it sounds like he is not used to running hypertensive, combined with the fact that his headache also seem to be accompanied by confusion in the context of marked elevations of his blood pressuredid appear to be a hypertensive mediated (hypertensive emergency) headachefortunately has resolved. Ongoing neck pain appears to be most consist ent with somatic dysfunction. B12 deficiency - ongoing memory problems and B12 < 400, replacement DVT proph - lovenox Subjective Pt seen at bedside, alert and oriented. Describes mild LAO, rates as 2/10, markedly improved from before, initial headache was 10/10. Denies noticing and weakness, sensory changes. Review of Systems Review of Systems: as per HPI Physical Exam Physical Exam: General: Alert and oriented. No acute distress Cardiac: Regular rate and rhythm, no murmurs appreciated Respiratory: Lungs clear to auscultation bilaterally, No increased work of breathing Abdominal: Soft, non-tender, non-distended. Bowel sounds present. Neuro: AOx3, CN II-XII grossly intact, strength preserved and symmetrical in bilateral upper and lower extremities, no sensory deficits appreciated. Results & Data Results & Data Vital Signs (Past 12 Hours) Vital Signs Temp Pulse Pulse Resp BP BP Pulse Ox 11/18/23 07:38 36.3 C L 70 18 173/82 H 93 11/18/23 02:57 37.0 C 70 18 135/75 92 11/17/23 22:46 74 11/17/23 22:43 36.9 C 66 18 139/72 94 11/17/23 21:55 62 11/17/23 21:00 37.1 C 63 20 161/80 H 93 11/17/23 20:30 149/86 H 11/17/23 20:23 71 20 143/76 H 95 O2 Del Method 11/18/23 07:38 Room Air 11/18/23 02:57 Room Air 11/17/23 22:46 11/17/23 22:43 Room Air 11/17/23 21:55 11/17/23 21:00 Room Air 11/17/23 20:30 11/17/23 20:23 Room Air (3) Hyperlipidemia Hyperlipidemia type: mixed hyperlipidemia Qualified Code(s): E78.2 - Mixed hyperlipidemia (4) Coronary artery disease Associated angina: without angina Coronary Disease-Associated Artery/Lesion type: [place] artery [place] vs. transplanted heart: [place] heart Qualified Code(s): I25.10 - Atherosclerotic heart disease of [place] coronary artery without angina pectoris (5) HTN (hypertension) Hypertension type: primary hypertension Qualified Code(s): I10 - Essential (primary) hypertension
[2023-11-18 08:31] LABS: Albumin Globulin Ratio 1.5 (0.9-2); Albumin Level 4.1 gm/dl (3.4-5.0); BUN Creatinine Ratio 28.6 (10-20); Bilirubin,Total 1.1 mg/dl (0.2-1.0); C Reactive Protein 8.48 mg/dl (0-0.5); Calcium 9.5 mg/dl (8.6-10.3); Creatinine Clr Calc Pharmacy 65.7 ml/min; Est GFR (African American) 84.1 ml/min; Est GFR (Non-African American) 72.5 ml/min; Globulin 2.7 gm/dl (2.5-4.0); Magnesium 2.2 mg/dl (1.7-2.4); Potassium 4.3 mmol/L (3.5-5.1); Total Protein 6.8 gm/dl (6.0-8.3)
[2023-11-18 08:34] LABS: Estimated Average Glucose 108 mg/dl; Hemoglobin A1C 5.4 % (4.5-5.6)
--- NOTE | 2023-11-18 09:00 | Neurology Consultation ---
Date of Consultation November 18, 2023 Assessment & Plan (1) Acute CVA (cerebrovascular accident): (2) Memory impairment: (3) HTN (hypertension): (4) Dyslipidemia: (5) Vitamin B 12 deficiency: (6) Vitamin D deficiency: Plan Patient is an 78-year-old who had an acute, small left lentiform nucleus area stroke, likely thrombotic. Interestingly, he has little to no deficits on examination from this stroke and his NIH stroke scale is 0. He does have some mild stenoses of vessels in the head and neck and he has had this event despite being on 81 mg aspirin tablet daily Patient has a history of hypertension not well-controlled when he came to the emergency room. This may have been a hypertensive small vessel ischemic stroke. He also has dyslipidemia. Patient has memory impairment, most consistent with a mild cognitive impairment likely aging and vascular. He does seem to have a little progression more recently compared to the past. He is still functioning fairly highly. Nevertheless, his short-term memory problems are advanced. He has a history of vitamin B12 and vitamin D deficiencies and I am not sure he is adequately replaced. Recommendations: 1. Continue 81 mg aspirin +75 mg clopidogrel daily for 3 weeks and then discontinue the aspirin (remaining on clopidogrel alone). 2. Control blood pressure as you are doing, aiming for a mean arterial pressure of 95-100. 3. His total cholesterol at 162, is in the "parsons zone" for high-dose statins (150-175). Therefore keep atorvastatin the same at 40 mg a day. I do not believe he is a high-dose statin candidate given his age and total cholesterol number. 4. Increase activity as able and consider physical, speech, and occupational Therapy consults. 5. Replace vitamin B-12 as you are doing 6. Check vitamin D level and supplement to get his vitamin D level closer to 50. 7. Follow up in neurology (with PA), 2 to 3 weeks from discharge. I may consider medication for memory dysfunction then, such as memantine. Overall, I spent a total of 110 minutes with this case including review of r ecords, review of CT and MRI films, direct evaluation of the patient, report generation, and discussion of the case with the RN, patient, and son at bedside, and Dr. Meeks, including differential diagnosis and treatment options. History of Present Illness Reason for Consultation: Patient is an 78-year-old, who I been asked to see at the request of Herrera Rico PA-C, for neurologic evaluation regarding stroke and other issues Requesting Physician: Herrera Rico PA-C Attending Physician: Didier Meeks DO History of Present Illness This patient was first seen by neurology in September 2022. At that time, he had some memory dysfunction which have been going on a year or so. It was short- term and tended to be mild. Mobility issues were noted (from a mechanical s tandpoint) and he had some anxiety. He scored 30 out of 30 on a Mini-Mental status test. At that time vitamin D level was 16 and vitamin B12 level was 143. He was given replacement but according to the patient's son (who is present in the room today) he has not been taking them regularly. Patient has a history of hypertension, coronary artery disease (status post stent placement), dyslipidemia, and gastroesophageal reflux disease. He has been on 81 mg aspirin tablet for years. According to family, the patient's memory has been getting worse more recently. This could be as much as several months but he is becoming more forgetful. This is particularly true for short-term and family believes that his long-term memory has been spared. On the evening of November 15, the patient had a significant right-sided headache. When he woke up 1 November 16, he had the right-sided headache and stiff neck. He also had some nausea without vomiting. He was seen by Dr. Teodora Sanchez in the industrial sewer of 11/16. he was felt to be a little somnolent and having a little slurred speech. There was concern that his quality control systems manager was weaker on the right and he was not following commands. She sent him to the emergency room. He arrived at the emergency room at 0 945 with a temperature of 36.4, pulse 70 and regular, respiratory rate 22 uncomfortable, blood pressure 172/90, and O2 saturation 100%. His blood pressure remained elevated in the emergency room. On neurologic examination he was felt to have no focal deficits and was quite awake and alert. NIH stroke scale was 0. CBC showed a platelet count of 118 but was otherwise unremarkable. CHEM profile was unremarkable except for glucose of 149. Liver profile was normal and TSH was 3.3. C-reactive protein was 3.3 and B12 was relatively low normal at 237. Lyme antibody titer was negative. Today, CBC was unremarkable as well as a CHEM profile except for the glucose of 111 and C-reactive protein of 8.5. CT scan of the head showed a age-indeterminate small left basal ganglia hypodensity consistent with infarct. There was some atrophy and old small vessel ischemic disease CT angiography of the head was remarkable for high-grade stenosis of the right posterior cerebral artery. CT angiography of the neck showed a 30% stenosis at the right distal common carotid and left proximal ICA. MRI of the brain revealed a small acute left lentiform nucleus area stroke. There was mild generalized atrophy and mild scattered old small vessel ischemic disease I reviewed the CT scan films and MRI films. Echocardiogram was largely unremarkable although there was some mild left ventricular hypertrophy. The patient feels better today and has no headache. He does have a little bit of left-sided neck pain but this is chronic and intermittent. He denies any pain, weakness, or numbness in the right arm or leg. He has some chronic left hand weakness and joint deformity. In general he does not get headaches nor does he have balance problems. He has no history of incontinence of urine. Patient's son states that today the patient is more alert and more aware with better word finding today than yesterday today, blood pressure is 173/82. Triglycerides were 111 and total cholesterol 162. Allergies Allergy/AdvReac Type Severity Reaction Status Date / Time ticlopidine Allergy Intermediate EYES AND Verified 11/17/23 08:11 FACE SWELL Iodinated Contrast Media Allergy Unknown HIVES Verified 11/17/23 08:11 diclofenac [From Voltaren] AdvReac Mild Aches Verified 11/17/23 08:11 triamterene AdvReac Diarrhea Verified 11/17/23 08:11 Home Medications Medication Instructions Recorded Confirmed Type acetaminophen 500 mg tablet 500 mg PO UD PRN fever or pain 11/17/18 11/17/23 History aspirin 81 mg tablet,delayed 81 mg PO DAILY 07/27/22 11/17/23 History release nitroglycerin 0.4 mg sublingual 0.4 mg sublingual Q5M PRN chest 05/13/23 11/17/23 Rx tablet pain #25 tabs atorvastatin 40 mg tablet 40 mg PO DAILY #90 tabs 06/16/23 11/17/23 Rx Patient History Medical History (Updated 11/18/23 @ 09:51 by Ulysses Joseph MD) Abscess, perirectal (10/2018) Constipation Elevated liver enzymes Hemorrhoids Impaired fasting glucose Stasis dermatitis Varicose vein of leg Surgical History S/P right coronary artery (RCA) stent placement (1996) Family History Mother , age in mid 70s No problems noted. Father , in later 70s of an [place] Myocardial infarction Brother Myocardial infarction Denies family history of Ovarian cancer Prostate cancer Breast cancer Colorectal cancer Social History (Updated 11/18/23 @ 09:44 by Ulysses Joseph MD) Smoking Status: Former smoker Tobacco Type: Cigarettes Age Started Using Tobacco: 18; Age Quit Using Tobacco: 23; Second Hand Exposure: No; Do You Dip or Chew Tobacco: No; Hx Alcohol Use: No Hx Substance Use: No Preferred Language: Cymraes Communication Ability: Effective Visual Impairment: Limited Hearing Ability: Normal Payroll Master Required: No Beliefs That Will Affect Care: None marital status: Current Living Situation: Spouse and Family Current Living Situation Comment: and Adult Son. 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 How many Children do You have: 3 Feels Safe at Home: Yes Childhood Exposure to Second-Hand Smoke: Yes Diet: regular caffeine: Yes (coffee and soda.) during the past year weight has: remained stable Dental Care, Regularly: Yes Physical Activity Frequency: Does not Exercise Seatbelt Use: always Sunscreen Use: No Assistive Devices: Cane and Glasses Review of Systems Constitutional: no fever, no fatigue and no weakness Eyes: no diplopia, no eye pain and no worsening vision Ear, Nose, Mouth, Throat: no ear pain, no tinnitus, no hearing loss, no dizziness, no snoring, no hoarseness and no dysphagia Respiratory: no cough and no dyspnea Cardiovascular: no chest pain, no palpitations and no lightheadedness Gastrointestinal: no abdominal pain, no nausea and no vomiting Musculoskeletal: + neck pain; no back pain, no radicular pain, no joint pain and no myalgia Integumentary: no rash and no lesions Neurologic: + gait abnormality and + memory loss; no localized weakness, no generalized weakness, no tingling, no numbness, no tremor(s), no abnormal movements, no headache(s), no abnormal speech and no confusion Psychiatric: no depression, no irritability, no anxiety, no difficulty concentrating, no confusion and no hallucinations Endocrine: no fatigue and no flushing Hematologic / Lymphatic: no easy bleeding and no easy bruising Allergy / Immunological: no urticaria and no problem reported Exam (Neuro) Physical Exam: The patient is right-handed. The patient is awake, alert, and attentive. Speech is normal without any aphasia or dysarthria. Mentation and thought processes are a little slow, but he tends to get most questions. Mood and affect are normal and appropriate. Appearance and grooming are normal. Short term memory is somewhat poor and he did not remember the events of yesterday. He did not remember going to the doctors. He knew his name is age, the month, and the president. He did not know the year or the day of the week. Pupils are 4 mm bilaterally and reactive to light. Extraocular eye muscles are intact without nystagmus. Visual acuity and visual rea seem normal grossly to confrontation. There are no deficits to sensation in the face in all 3 distributions of the fifth cranial nerve bilaterally. Corneal reflexes are positive bilaterally. There was a little asymmetry at the corner of mouth on the left compared to the right but both moved and there was no facial weakness. Hearing seems intact grossly to voice and finger rub bilaterally. Palate moves well without asymmetry. There is normal sternocleidomastoid and trapezius strength bilaterally. Tongue is midline with good strength bilaterally. Neck has a full range of motion, but there is some discomfort with palpation on the left side of the neck. There are no cervical bruits bilaterally. There are no cranial or ocular bruits. Heart is without murmur. There is a regular rhythm and rate. Cervical, thoracic, and lumbar spine are nontender to palpation. Gait is narrow based, with good arm swing, turns, and stance, although he is a little bit slow and cautious. Balance is normal eyes open or closed. With outstretched arms there is no drift. There are no resting, postural, or action tremors. There is no ataxia with finger to nose testing. There is good facility in the hands. No other abnormal involuntary movements are noted. Motor strength is 5/5 diffusely in the arms bilaterally including deltoids, biceps, triceps, brachioradialis, wrist flexors and extensors, quality control systems manager, and intrinsic hand muscles. Motor strength is 5/5 diffusely in the legs bilaterally including hip flexors, quadriceps, hamstrings, gastrocnemius, tibialis anterior, tibialis posterior, and Peroneii muscles bilaterally. Toe extensors are normal and there is good bulk in the extensor digitorum brevis muscles bilaterally. The limbs have good tone without rigidity or spasticity. There is no atrophy noted in the muscles. Muscle bulk is normal, there is no tenderness to palpation, no myotonia to percussion, and no fasciculations seen. Sensory examination is intact to touch and pin throughout all 4 limbs diffusely. Reflexes are 1/4 in the biceps, triceps, brachioradialis, quadriceps, and Achilles tendons bilaterally. Toes are downgoing with plantar stimulation bilaterally. Peripheral pulses are present and of normal quality distally in all 4 limbs. There is no peripheral edema noted in the limbs. Results & Data Vital Signs (Past 12 Hours) Vital Signs Temp Pulse Pulse Resp BP Pulse Ox O2 Del Method 11/18/23 07:38 36.3 C L 70 18 173/82 H 93 Room Air 11/18/23 02:57 37.0 C 70 18 135/75 92 Room Air 11/17/23 22:46 74 11/17/23 22:43 36.9 C 66 18 139/72 94 Room Air 11/17/23 21:55 62 11/17/23 21:00 37.1 C 63 20 161/80 H 93 Room Air PG Care Time/CCT Total # of Minutes Spent Total Time Spent with Patient: Total time spent is greater than 50% in coordination of care (as documented) at patient's floor/unit and/or counseling patient: Coding Level of Care Code 25006 INT INP/OBS CARE 3/75MIN Diagnoses Acute CVA (cerebrovascular accident) I63.9 Memory impairment R41.3 Primary hypertension I10 Hypertension type: primary hypertension Dyslipidemia E78.5 Vitamin B 12 deficiency E53.8 Vitamin D deficiency E55.9 Time Spent (min) 110 (3) HTN (hypertension) Hypertension type: primary hypertension Qualified Code(s): I10 - Essential (primary) hypertension
--- NOTE | 2023-11-18 12:25 | Pharmacy Report ---
- Date of Service November 18, 2023 - Pharmacy CVA/TIA Medication Review Medications to Prevent Stroke handout has been added to the patients discharge packet. Antiplatelet(s) * aspirin 81mg daily * clopidogrel 75mg daily Cholesterol * High intensity statin: atorvastatin 40 mg daily DVT Prophylaxis * SCD knee Therapeutic Anticoagulation * No history of Afib/Aflutter noted Type 2 Diabetes * Patient does not have T2DM
[2023-11-18] MEDS: DICLOFENAC SOD 1% GEL 100 GM TUBE EXT SCH (15:24)
--- NOTE | 2023-11-18 18:31 | Billing Data ---
Date of Service November 18, 2023 Coding Level of Care Code 68974 SUB INP/OBS CARE MIN
[2023-11-19 07:09] LABS: Basophils # (auto) 0.03 K/uL (0.00-0.20); Basophils % (auto) 0.3 %; Eosinophils # (auto) 0.04 K/uL (0.00-0.50); Eosinophils % (auto) 0.4 %; Hematocrit (blood only) 42.9 % (42.0-52.0); Immature Granulocytes # (auto) 0.04 K/uL (0.01-0.20); Immature Granulocytes % (auto) 0.4 %; Lymphocytes # (auto) 1.74 K/uL (1.20-3.40); Lymphocytes % (auto) 18.1 %; Mean Corpuscular Hemoglobin 29.8 pg (25.0-34.0); Mean Corpuscular Volume 85.3 fL (80.0-100.0); Mean Platelet Volume 10.5 fL (9.4-12.4); Monocytes % (auto) 9.3 %; Neutrophils # (auto) 6.88 K/uL (1.40-6.50); Neutrophils % (auto) 71.5 %; Platelet Count 128 K/uL (130-400); RDW Coefficient of Variation 12.4 % (11.5-14.5); RDW Standard Deviation 38.2 fL (36.4-46.3); Red Blood Count 5.03 M/uL (4.70-6.10); White Blood Count 9.63 K/ul (4.8-10.8)
[2023-11-19 08:03] LABS: Calcium 8.8 mg/dl (8.6-10.3); Potassium 3.8 mmol/L (3.5-5.1)
[2023-11-19 08:09] LABS: BUN Creatinine Ratio 31.3 (10-20); C Reactive Protein 3.63 mg/dl (0-0.5); Creatinine Clr Calc Pharmacy 77.5 ml/min; Est GFR (African American) 96.3 ml/min; Est GFR (Non-African American) 83.1 ml/min
[2023-11-19] MEDS: ENOXAPARIN INJ 40 MG/0.4 ML SYR SQ SCH (10:35)
--- NOTE | 2023-11-19 13:02 | Discharge Summary ---
Date of Service November 19, 2023 Admission HPI Per Admitting Provider Rigo is an 78-year-old male with PMH of GERD, HTN, coronary artery disease, HLD, gout, arthritis, memory impairment, and vitamin B12 deficiency. He presented via EMS on 11/16 from his PCPs office for acute onset of headache and neck pain that began the evening of 11/15. Patient's is at the bedside and provides additional history. She reports that the headache started intermittently yesterday evening, but then was constant throughout the night in the morning. Patient reports that it is located mainly on the right side of his head wrapping around to the back; he also endorses bilateral lower posterior nec k pain. Patient took Tylenol last night prior to coming in. He describes it as a 9/10 pain after receiving pain medicine in the ED, and 10/10 at worst. Patient does report that he was out working on bushes the other day and scratched his left arm. He also has a rash on his left upper thigh which patient's did not notice until today. Patient did not take any of his regular morning medication today; he reports he usually takes it at night. He does take aspirin, but does not take it every day. History of heart stent. No prior history of CVA the patient or 's knowledge. No sick contacts. Patient denies any recent falls or trauma to the head or neck. Patient wears glasses at baseline. Per , he has had a gradual decline over the past 6 months; slurred speech has been ongoing, and she denies any acute changes in the past 24 hours. Patient does have a listed allergy for ticlopidine; when asked, patient's does not remember what specifically happened during the allergic reaction as it was around 30 years ago. Patient's /son do not believe he had an anaphylactic reaction, or his throat closed up, and believes it might of been more mild like a rash, or something along the line of hives. Patient and patient's family are amenable to trying a small dose of Plavix in the ED and reassessing as needed. Patient denies smoking, tobacco use, recent alcohol use. Patient is hypertensive at 171/115 at time of admission; vitals otherwise stable. ED course: Diphenhydramine 50 mg IV Methylprednisolone 40 mg IV NSS 500 mL IV Morphine sulfate 2 mg IV Zofran 4 mg IV Labetalol 10 mg IV ROS: Patient endorses severe headache, neck pain/stiffness (difficulty turning head due to pain). Patient denies fever, chills, night-sweats, dizziness, lightheadedness, facial droop, changes in slurred speech, unilateral deficits, changes in vision, photophobia, pain in ears, changes in taste/smell/hearing, chest pain, SOB, abdominal pain, N/V/D, changes in urinary/bowel habits, blood in the urine/stool, or numbness/tingling in the arms. Admission Exam Per Admitting Provider General: Moderate physical distress secondary to headache; non-toxic appearing; well-nourished; cooperative HEENT: normocephalic, atraumatic; no scleral icterus; PERRLA w/ EOMs intact; vision and hearing grossly intact; patient demonstrates ability to protrude and wiggle tongue bilaterally without deficits; patient demonstrates ability to smile, frown, and raise eyebrows without unilateral deficits Neck: supple; no lymphadenopathy; trachea midline; patient demonstrates ability to shrug shoulders bilaterally without pain, but rotating neck left and right does replicate pain Skin: warm, dry without signs of tenting; no cyanosis; nonblanchable rashes noted on the left upper thigh (see photo below); excoriations are noted on the left upper and lower arm CV: chest wall NTP; RRR; S1/S2 normal; no murmurs/rubs/gallops; pulses intact and symmetric at radial, DP, and PT Lungs: no acute respiratory distress; symmetrical chest wall expansion; clear breath sounds across all lung rea w/o adventitious sounds; no wheezing ABD: Soft, NTP; BS present; no rebound/guarding; no distention MSK: no tics or fasciculations; no edema noted in the LEs b/l, nonerythematous; 5/5 supervisor broadloom strength bilaterally; patient demonstrates ability to wiggle toes bilaterally Neuro: Patient is alert and oriented to name//location, but not month or season; he occasionally has incoherent thought processes; no facial droop; fluent speech; no focal deficits; sensation grossly intact in the face/UEs/LEs b/l; negative pronator drift Principal Diagnosis stroke Discharge Exam General: Alert and oriented. No acute distress Cardiac: Regular rate and rhythm, no murmurs appreciated Respiratory: Lungs clear to auscultation bilaterally, No increased work of breathing Abdominal: Soft, non-tender, non-distended. Bowel sounds present. Neuro: AOx3, CN II-XII grossly intact, strength preserved and symmetrical in bilateral upper and lower extremities, no sensory deficits appreciated. Discharge Data Allergies Allergy/AdvReac Type Severity Reaction Status Date / Time ticlopidine Allergy Intermediate EYES AND Verified 11/17/23 08:11 FACE SWELL Iodinated Contrast Media Allergy Unknown HIVES Verified 11/17/23 08:11 diclofenac [From Voltaren] AdvReac Mild Aches Verified 11/17/23 08:11 triamterene AdvReac Diarrhea Verified 11/17/23 08:11 Consultations 11/17/23 12:03 ED Decision to Admit Stat 11/17/23 15:26 Consult Neurology Routine Ordered Studies 11/17/23 09:47 CT angio head wo/w Stat CT angio neck with con Stat 11/17/23 12:56 MR brain wo con Stat Hospital Course (1) Left-sided cerebrovascular accident (CVA): (2) Thrombocytopenia: (3) Hyperlipidemia: (4) Coronary artery disease: (5) HTN (hypertension): (6) Memory impairment: (7) Vitamin B 12 deficiency: (8) Stroke-like symptoms: (9) Headache: Plan Acute Stroke: Acute onset of head and neck pain on the evening of 11/15 Head CTA revealed an age-indeterminate lacunar infarct and microvascular changes Brain MRI came back suggesting an acute 1.5cm left lentiform nuclear infarct TTE unremarkable. Cleared for discharge home by OT/PT/ST Neurology consulted, recs; - Recommend DAPT x 21 days followed by Plavix alone - Total cholesterol 162, [place] area, could consider escalating statin therapy, at this time, will continue Atorvastatin 40 mg daily Vitamin B12 deficiency: IM repletion x3 doses. Continue to monitor. HTN: BP persistently elevated throughout hospital stay. Currently not on antihypertensive medications. Recommend home monitoring in the outpatient setting, consider initiating antihypertensive medication upon review of home logs. HLD: Continue Atorvastatin 40mg daily Total Time Total Time Spent Total Time Spent (In Minutes): <30 Discharge Plan Discharge Items Patient Disposition: Home - Self-Care Reason For Visit: ACUTE ONSET OF SEVERE HEADACHE/ NECK PAIN Discharge Diagnosis: Stroke Activity: Resume your previous activity Non-emergency contact: Primary Care Provider and Neurologist Call non-emergency contact if: you have any medication questions and your symptoms worsen Follow-up/Referrals: Mary Franklin MD [Primary Care Provider] - 11/26/23 10:00 am Diet: Heart Healthy Addtl Attending Provider Instructions: You were admitted due to imaging that confirmed presence of a stroke. You were also seen by neurology during your hospital stay. The following are our recommendations following discharge: - Please take Aspirin and Plavix both for 21 days, then switch to taking Plavix only thereafter. - Continue Atorvastatin 40mg daily. - Monitor your blood pressure routinely at home - if consistently elevated, p lease follow up with your primary care provider, who can help determine if there is a need to start blood pressure medication. Pending Studies at Discharge: No Stand-Alone Forms: My [facility] [employer] [place], Smoking Cessation, Medications to Prevent Stroke Medications and DC Order Prescriptions: New clopidogrel 75 mg Tablet 75 mg PO QAM 30 Days Qty: 30 0RF Continued atorvastatin 40 mg tablet 40 mg PO DAILY Qty: 90 3RF nitroglycerin 0.4 mg tablet, sublingual 0.4 mg SL Q5M PRN (Reason: chest pain) Qty: 25 0RF acetaminophen 500 mg tablet 500 mg PO UD PRN (Reason: fever or pain) Patient Comments: 500 mg PO Q4-6H PRN; Rx Instructions: Q4 - 6 hours aspirin 81 mg Tablet,Delayed Release (Dr/Ec) 81 mg PO DAILY Discharge Orders: Discharge Order (Routine); Ordered 11/19/23 Ordered By: Andrea Disa/Other Patient Handouts: Discharge Instructions for Stroke Admission Data Admit Date/Time: 11/17/23 12:55 Attending Provider: Didier Meeks Admit Provider: Aguilar Kwan Primary Care Provider: Mary Franklin Other Providers: Aguilar Kwan; Kevon Balderrama Other Interventions: Discharge Summary Assessment (RN) Last Done: 11/19/23 13:39 Supervising Physician Co-Signing Physician Notes I personally examined the patient and verified all monk points of history and exam, discussed case, and agree with decision making with Dr De La Vega feels up to going home. notes is doing OK post op. Vitals noted, in general he is awake and alert oriented pleasant no distress. HEENT normocephalic atraumatic mucous membranes moist. breathing unlabored no accessory muscles good effort skin no rashes no pallor or icterus Acute 1.5 cm left lentiform nuclear infarct - Continue aspirin and Plavix, monitor blood pressure (especially as an outpatient) continue atorvastatin at current dose. Appreciate neurology input. Otherwise as above. Headache - Given that his autoregulation blood pressure numbers were quite high, combined with the fact that it sounds like he is not used to running hypertensive, combined with the fact that his headache also seem to be accompanied by confusion in the context of marked elevations of his blood pressuredid appear to be a hypertensive mediated (hypertensive emergency) headachefortunately has resolved. Ongoing neck pain appears to be most consistent with somatic dysfunction. B12 deficiency - ongoing memory problems and B12 < 400, replacement DVT proph - lovenox utilized during his stay Resident Activity Tracking Resident Involvement: Resident Care Provided Care Provided: Adult Hospital Medicine
[2023-11-19] MEDS: STROKE PATIENT DISCHARGE STA (13:31)
--- NOTE | 2023-11-19 16:45 | Billing Data ---
Date of Service November 19, 2023 Coding Level of Care Code 90313 IN/OBS DISCH 30 MIN/LESS
[2023-11-20 05:17] LABS: Babesia microti DNA Not Detected (Not Detected)
[2023-11-20] MEDS ORDERED: CYANOCOBALAMIN (B-12) 500 MCG TABLET PO SCH (09:00)
--- NOTE | 2023-11-21 11:51 | Pharmacy Report ---
Pharmacist Stroke Counseling - Date of Service November 21, 2023 - Scope: Pharmacy has been consulted to provide medication discharge counseling for this patient admitted with ischemic stroke as per the Pharmacist Discharge Counseling for Stroke Patients Protocol. - Medications on Discharge: Home Medications Medication Instructions Recorded Confirmed acetaminophen 500 mg tablet 500 mg PO UD PRN fever or pain 11/17/18 11/20/23 aspirin 81 mg tablet,delayed 81 mg PO DAILY 07/27/22 11/20/23 release New Rx's Medication Instructions Recorded nitroglycerin 0.4 mg sublingual 0.4 mg sublingual Q5M PRN chest 05/13/23 tablet pain #25 tabs atorvastatin 40 mg tablet 40 mg PO DAILY #90 tabs 06/16/23 clopidogrel 75 mg tablet 75 mg PO QAM 30 days #30 tabs 11/18/23 - Action: The above medications, specifically ones for stroke treatment/prophylaxis, have been reviewed in detail with the patient and/or patient environmental marketing representative(s) prior to discharge. This includes indication, common adverse reactions, drug interactions, and medication administration. Medication counseling has been employed using the teach-back method to ensure understanding. - Outcome: The patient and/or patient environmental marketing representative(s) have demonstrated understanding of the medications. Additional comments: - With permission of patient, counseled both him and his son, Isiah, on stroke discharge medications - Patient previously on Lipitor so limited counseling needed - Explained 3 weeks of dual antiplatelet therapy with both aspirin and clopido grel to patient and son. There are aware and know when to stop aspirin and continue clopidogrel lifelong. -- Counseled on inability to use Prilosec while on Clopidogrel and instructed patient to ask pharmacist prior to purchasing any OTC heartburn medications - Patient has follow up appointment scheduled for 11/26/23 Thank you for allowing pharmacy to be involved in the care of this patient. Please call [phone] with any additional questions
== END 2023-11-19 14:09 | disposition home or self-care (01) | DRG 65 ==
LOC: ED 09:38 → EDINP 12:55 → SUATTDRO 12:55 → 2S 14:48 → 3W 11-18 22:01

== ENCOUNTER 2024-08-29 03:29 | Observation (INO) ==
[2024-08-29] MEDS ORDERED: VANCOMYCIN CONSULT ACTIVE PRN ×2 (04:17→10:41)
[2024-08-29 04:46] LABS: Basophils # (auto) 0.04 K/uL (0.00-0.20); Basophils % (auto) 0.4 %; Eosinophils # (auto) 0.06 K/uL (0.00-0.50); Eosinophils % (auto) 0.6 %; Hematocrit (blood only) 40.3 % (42.0-52.0); Hemoglobin 14.1 g/dl (14.0-18.0); Immature Granulocytes # (auto) 0.03 K/uL (0.01-0.20); Immature Granulocytes % (auto) 0.3 %; Lymphocytes # (auto) 1.52 K/uL (1.20-3.40); Lymphocytes % (auto) 16.3 %; Mean Corpuscular Hemoglobin 29.2 pg (25.0-34.0); Mean Corpuscular Volume 83.4 fL (80.0-100.0); Mean Platelet Volume 9.7 fL (9.4-12.4); Monocytes % (auto) 11.8 %; Neutrophils # (auto) 6.59 K/uL (1.40-6.50); Neutrophils % (auto) 70.6 %; Platelet Count 125 K/uL (130-400); RDW Coefficient of Variation 12.6 % (11.5-14.5); RDW Standard Deviation 38.1 fL (36.4-46.3); Red Blood Count 4.83 M/uL (4.70-6.10); White Blood Count 9.34 K/ul (4.8-10.8)
[2024-08-29] MEDS: cefTRIAXone SODIUM 2,000 MG/50 ML BAG IV STA (04:53)
[2024-08-29 05:05] LABS: Albumin Level 3.9 gm/dl (3.4-5.0); BUN Creatinine Ratio 19.5 (10-20); Bilirubin Direct 0.1 mg/dl (0-0.2); Bilirubin,Total 0.8 mg/dl (0.2-1.0); C Reactive Protein 4.96 mg/dl (0-0.5); Calcium 9.2 mg/dl (8.6-10.3); Creatinine Clr Calc Pharmacy 52.9 ml/min; Potassium 4.2 mmol/L (3.5-5.1); Total Protein 6.6 gm/dl (6.0-8.3)
[2024-08-29 05:12] LABS: Troponin I High Sensitivity 10.2 pg/ml (0-20)
--- NOTE | 2024-08-29 05:33 | XRay Report ---
EXAM: XR chest 1V portable CLINICAL HISTORY: Sepsis TECHNIQUE: An X-ray image of the chest is obtained in AP projection. COMPARISON: No prior studies are available for comparison. FINDINGS: Pulmonary Parenchyma: Prominent bilateral bronchovascular markings. No evidence of consolidation, collapse, or focal opacities. No pulmonary nodules are identified. No evidence of pleural effusion or pleural thickening. Heart and Mediastinum: Heart size and shape are normal. No mediastinal widening or masses. No hilar or mediastinal lymphadenopathy. Bony Thorax: Bony thorax appears intact without fractures or deformities. Soft Tissues: Soft tissues overlying the chest wall are unremarkable. IMPRESSION: No acute cardiopulmonary abnormalities are identified. Electronically signed by Xavi Cole 08-29-2024 05:33 AM
--- NOTE | 2024-08-29 06:06 | History & Physical Report ---
Date of Service August 29, 2024 Assessment & Plan (1) Pain and swelling of left elbow: (2) H/O TIA (transient ischemic attack) and stroke: (3) HTN (hypertension): (4) Hyperlipidemia: (5) Coronary artery disease: Plan 79yo male presenting with progressive pain and swelling of left elbow. #Pain and swellling of left elbow: several days of progressive symptoms. Labs with elevated inflammatory markers - ESR=22, CRP=4.96. X-ray performed 08/27/24 with joint effusion present. Patient has taken PO antibiotics prior to arrival. Concern for joint infection. Possible crystal arthropathy - patient has had gout in the past but has never effected his elbows. Symptoms seem to be somewhat extensive for olecronon bursitis -Admit to medical -Follow cultures sent from ER -Continue antibiotic coverage with Vancomycin and Ceftriaxone -Tylenol PRN -Orthopedics consultation appreciated -Will keep patient NPO for now -Will hold Plavix but continue ASA #History of TIA/CVA -Continue ASA -Hold Plavix -Continue Rosuvastatin #Hypertension -Continue Losartan -Monitor BP #Hyperlipidemia -Continue Rosuvastatin #History of CAD s/p stent placement in 1996 -Continue ASA, Hold Plavix -Continue Rosuvastatin -Continue Losartan History of Present Illness Chief Complaint: left elbow swelling and pain Primary Care Provider: aMry Franklin MD 79yo male with history of HTN, CAD s/p stent placement presenting with left elbow swelling and pain. Patient denies trauma or abrasion/skin break to the area. No recent insect bites. He developed some pain and swelling several days ago - has been progressive over the last two days. Seen by his PCP yesterday and had an xray performed which showed moderate degenerative changes and joint effusion. Patient was started on Keflex and Bactrim - has taken two doses thus far. Overnight 08/28 going into 08/29 patient developed worsening swelling and pain in the left elbow. Also with some edema of the left hand and some pain in the left shoulder. Denies fever, chills, nausea, vomiting, diarrhea No additional complaints at this time No history of prior In the ER he is afebrile, HD stable ER Course: Ceftriaxone Vancomycin Allergies Allergy/AdvReac Type Severity Reaction Status Date / Time ticlopidine Allergy Intermediate EYES AND Verified 08/27/24 12:41 FACE SWELL Iodinated Contrast Media Allergy Unknown HIVES Verified 08/27/24 12:41 diclofenac [From Voltaren] AdvReac Mild Aches Verified 08/27/24 12:41 triamterene AdvReac Diarrhea Verified 08/27/24 12:41 Home Medications Medication Instructions Recorded Confirmed Type acetaminophen 500 mg tablet 500 mg PO UD PRN fever or pain 11/17/18 08/27/24 History nitroglycerin 0.4 mg sublingual 0.4 mg sublingual Q5M PRN chest 05/13/23 08/27/24 Rx tablet pain #25 tabs aspirin 81 mg capsule 81 mg PO DAILY #90 caps 04/02/24 08/27/24 Rx clopidogrel 75 mg tablet 75 mg PO QAM #90 tabs 06/14/24 08/27/24 Rx hydroxyzine HCl 25 mg tablet 25 mg PO BID PRN itching #60 tabs 06/14/24 08/27/24 Rx losartan 25 mg tablet 25 mg PO DAILY #90 tabs 06/14/24 08/27/24 Rx rosuvastatin 20 mg tablet 20 mg PO DAILY #90 tabs 06/14/24 08/27/24 Rx multivitamin 1 tab PO DAILY 08/13/24 08/27/24 History cephalexin 500 mg capsule 500 mg PO BID #14 caps 08/27/24 08/27/24 Rx sulfamethoxazole 800 1 tab PO BID 7 days #14 tabs 08/27/24 08/27/24 Rx mg-trimethoprim 160 mg tablet (Bactrim DS) Past Med/Surg History Problem List Pain and swelling of left elbow H/O TIA (transient ischemic attack) and stroke Impacted cerumen, left ear Dizziness MCI (mild cognitive impairment) Sacral wound H/O pilonidal cyst Dyslipidemia HTN (hypertension) Acute CVA (cerebrovascular accident) (10/2023) Bilateral thumb pain Excessive cerumen in left ear canal Sinus bradycardia Atrial ectopy Mild aortic stenosis Memory impairment Vitamin B 12 deficiency Decreased functional mobility Encounter for examination following treatment at hospital Oral candidiasis Pneumonia (Acute) Influenza A Viral illness Bronchitis Olecranon bursitis of right elbow Bradycardia Right carotid bruit Systolic murmur Fatigue Screening for diabetes mellitus Routine health maintenance Carpal tunnel syndrome, left Ulnar neuropathy at wrist Vitamin D deficiency Screening PSA (prostate specific antigen) Bone/cartilage disorder Arthritis Dermatitis Gout, joint Hyperlipidemia Coronary artery disease GERD (gastroesophageal reflux disease) Medical History Abscess, perirectal (10/2018) Constipation Elevated liver enzymes Hemorrhoids Impaired fasting glucose Stasis dermatitis Varicose vein of leg Surgical History S/P right coronary artery (RCA) stent placement (1996) Family History Mother , age in mid 70s No problems noted. Father , in later 70s of an [facility] Myocardial infarction Brother Myocardial infarction Denies family history of Ovarian cancer Prostate cancer Breast cancer Colorectal cancer Social History Smoking Status: Former smoker Tobacco Type: Cigarettes Age Started Using Tobacco: 18; Age Quit Using Tobacco: 23; packs per day: 1; Second Hand Exposure: Yes (As a child-"everyone" smoked in family. 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 How many Children do You have: 3 Feels Safe at Home: Yes Childhood Exposure to Second-Hand Smoke: Yes Diet: regular caffeine: Yes (coffee and soda.) during the past year weight has: remained stable Dental Care, Regularly: Yes Physical Activity Frequency: Does not Exercise Seatbelt Use: always Sunscreen Use: No Do you think of yourself as: straight/heterosexual Sexual Activity: has been sexually active, but not for at least 12 months Gender Identity: Male Assistive Devices: Cane and Glasses Review of Systems Review of Systems: All systems reviewed & are unremarkable except as noted in HPI & below Physical Exam Physical Exam: General: patient resting comfortably, NAD, non-toxic in appearance, AA&O x 4 Skin: warm, dry, intact, no rashes or lesions HEENT: NC/AT, PERRL, EOMI, anicteric sclera, conjunctiva without injection, external ear normal to inspection and nontender, nares patent, moist mucus membranes, dentition intact, no oropharyngeal lesions, neck supple, trachea midline, no LAD, no thyromegaly, no JVD Heart: +S1/S2, regular, no m/r/g Lungs: equal air entry bilaterally, no rales/rhonchi/wheezes Abd: +BS, soft, NT/ND, no masses/organomegaly/ascites Ext: warm, 2+ pulses in UE/LE bilaterally, no clubbing/cyanosis Left elbow warm, erythematous and tender with joint effusion present, edema of left forearm as well and left hand, NV intact, pain with palpation of left sh oulder at AC joint Neuro: nonfocal, patient AA&O x 4, speech intact, no facial droop, moving all extremities on command with equal strength 5/5 Results & Data Results & Data Vital Signs (Past 12 Hours) Vital Signs Temp Pulse Pulse Resp BP BP Pulse Ox 08/29/24 05:55 77 18 142/71 H 95 08/29/24 05:29 36.8 C 85 20 144/70 H 96 08/29/24 04:59 76 22 158/82 H 94 08/29/24 04:58 81 18 158/82 H 95 08/29/24 04:44 86 20 97 08/29/24 04:15 85 08/29/24 04:00 87 20 133/71 96 08/29/24 04:00 83 18 133/71 97 08/29/24 03:36 36.8 C 81 20 148/82 H 97 O2 Del Method 08/29/24 05:55 Room Air 08/29/24 05:29 Room Air 08/29/24 04:59 Room Air 08/29/24 04:58 Room Air 08/29/24 04:44 Room Air 08/29/24 04:15 08/29/24 04:00 Room Air 08/29/24 04:00 Room Air 08/29/24 03:36 Room Air Laboratory Results Laboratory Results WBC 9.34 K/ul (4.8-10.8) 08/29/24 04:33 RBC 4.83 M/uL (4.70-6.10) 08/29/24 04:33 Hgb 14.1 g/dl (14.0-18.0) 08/29/24 04:33 Hct 40.3 % (42.0-52.0) L 08/29/24 04:33 MCV 83.4 fL (80.0-100.0) 08/29/24 04:33 MCH 29.2 pg (25.0-34.0) 08/29/24 04:33 MCHC 35.0 g/dL (32.0-36.0) 08/29/24 04:33 RDW Std Deviation 38.1 fL (36.4-46.3) 08/29/24 04:33 RDW Coeff of Paramjit 12.6 % (11.5-14.5) 08/29/24 04:33 Plt Count 125 K/uL (130-400) L 08/29/24 04:33 MPV 9.7 fL (9.4-12.4) 08/29/24 04:33 Immature Gran % (Auto) 0.3 % 08/29/24 04:33 Neut % (Auto) 70.6 % 08/29/24 04:33 Lymph % (Auto) 16.3 % 08/29/24 04:33 [place] % (Auto) 11.8 % 08/29/24 04:33 Eos % (Auto) 0.6 % 08/29/24 04:33 Baso % (Auto) 0.4 % 08/29/24 04:33 Neut # (Auto) 6.59 K/uL (1.40-6.50) H 08/29/24 04:33 Lymph # (Auto) 1.52 K/uL (1.20-3.40) 08/29/24 04:33 [place] # (Auto) 1.10 K/uL (0.11-0.59) H 08/29/24 04:33 Eos # (Auto) 0.06 K/uL (0.00-0.50) 08/29/24 04:33 Baso # (Auto) 0.04 K/uL (0.00-0.20) 08/29/24 04:33 Immature Gran # (Auto) 0.03 K/uL (0.01-0.20) 08/29/24 04:33 ESR 22 mm/hr (0-20) H 08/29/24 04:33 Sodium 135 mmol/L (136-145) L 08/29/24 04:14 Potassium 4.2 mmol/L (3.5-5.1) 08/29/24 04:14 Chloride 105 mmol/L (98-107) 08/29/24 04:14 Carbon Dioxide 25 mmol/L (21-32) 08/29/24 04:14 Anion Gap 5 (3-11) 08/29/24 04:14 BUN 22 mg/dl (6-23) 08/29/24 04:14 Creatinine 1.13 mg/dl (0.6-1.4) 08/29/24 04:14 Est Cr Clr Drug Dosing 52.9 ml/min 08/29/24 04:14 eGFR 65.30 08/29/24 04:14 BUN/Creatinine Ratio 19.5 (10-20) 08/29/24 04:14 Glucose 114 mg/dl (70-99(Fasting)) H 08/29/24 04:14 Lactate 0.9 mmol/L (0.4-2.0) 08/29/24 04:33 Calcium 9.2 mg/dl (8.6-10.3) 08/29/24 04:14 Magnesium 2.0 mg/dl (1.7-2.4) 08/29/24 04:14 Total Bilirubin 0.8 mg/dl (0.2-1.0) 08/29/24 04:14 Direct Bilirubin 0.1 mg/dl (0-0.2) 08/29/24 04:14 AST 19 U/L (13-39) 08/29/24 04:14 ALT 11 U/L (7-52) 08/29/24 04:14 Alkaline Phosphatase 72 U/L (34-104) 08/29/24 04:14 Troponin I High Sens 10.2 pg/ml (0-20) 08/29/24 04:14 C-Reactive Protein 4.96 mg/dl (0-0.5) H 08/29/24 04:14 Total Protein 6.6 gm/dl (6.0-8.3) 08/29/24 04:14 Albumin 3.9 gm/dl (3.4-5.0) 08/29/24 04:14 Procalcitonin < 0.02 ng/ml (0-0.5) 08/29/24 04:14 Urine Color Yellow 08/29/24 06:00 Urine Appearance Cloudy (Clear) A 08/29/24 06:00 Urine pH 5.0 (4.5-7.5) 08/29/24 06:00 Ur Specific [place] 1.024 (1.000-1.030) 08/29/24 06:00 Urine Protein Negative (Negative) 08/29/24 06:00 Urine Glucose (UA) Negative (Negative) 08/29/24 06:00 Urine Ketones Trace (Negative) H 08/29/24 06:00 Urine Blood Negative (Negative) 08/29/24 06:00 Urine Nitrite Negative (Negative) 08/29/24 06:00 Urine Bilirubin Negative (Negative) 08/29/24 06:00 Urine Urobilinogen Negative (Negative) 08/29/24 06:00 Ur Leukocyte Esterase Negative (Negative) 08/29/24 06:00 Urine WBC (Auto) 0-5 /hpf (0-5) 08/29/24 06:00 Urine RBC (Auto) 0-2 /hpf (0-2) 08/29/24 06:00 U Hyaline Cast (Auto) 0-2 /lpf (0-2) 08/29/24 06:00 U Epithel Cells (Auto) 0-2 /hpf (0-2) 08/29/24 06:00 Urine Bacteria (Auto) None Seen (None Seen) 08/29/24 06:00 Impressions Chest X-Ray 08/29/24 04:14 EXAM: XR chest 1V portable CLINICAL HISTORY: Sepsis TECHNIQUE: An X-ray image of the chest is obtained in AP projection. COMPARISON: No prior studies are available for comparison. FINDINGS: Pulmonary Parenchyma: Prominent bilateral bronchovascular markings. No evidence of consolidation, collapse, or focal opacities. No pulmonary nodules are identified. No evidence of pleural effusion or pleural thickening. Heart and Mediastinum: Heart size and shape are normal. No mediastinal widening or masses. No hilar or mediastinal lymphadenopathy. Bony Thorax: Bony thorax appears intact without fractures or deformities. Soft Tissues: Soft tissues overlying the chest wall are unremarkable. IMPRESSION: No acute cardiopulmonary abnormalities are identified. Electronically signed by Xavi Cole 08-29-2024 05:33 AM Diagnostic Findings [facility] [place] [phone] XRay Report Patient: JAY CASEY Admit Date: 08/27/24 MR#: [id number] Address1: [address] Acct ID:[id number] Address2: Date: 1945 [facility] Zip: [place] [address] Age: 79 Location: RAD4 Sex: M Room/Bed: Att Phy: Mary Franklin MD Diagnosis: M25.522 - Pain in left elbow Kathleen Phy: Mary Franklin MD Service Date: 08/27/24 [facility] Phy: Interpreting Phy: Song Cortés MDAdmit Phy: Ordering Phy: Mary Franklin MD cc: ~ XR elbow LT min 3V routine CLINICAL HISTORY: M25.522 - Pain in left elbow COMPARISON: None FINDINGS: There are moderate degenerative changes. There is chondrocalcinosis. There is a moderate joint effusion. No erosion seen. No fracture or dislocation. IMPRESSION: Moderate degenerative changes and joint effusion. ACT 112: Negative or not required by law. Electronically signed by: Song Cortés M.D. 08/27/2024 1:24 PM Dictated: 08/27/24 1323 Transcribed: 08/27/24 1323 PG Care Time/CCT Total # of Minutes Spent Total Time Spent with Patient: Total time spent is greater than 50% in coordination of care (as documented) at patient's floor/unit and/or counseling patient: Coding Level of Care Code 96475 INT INP/OBS CARE 3/75MIN Diagnoses Pain and swelling of left elbow M25.522; M25.422 H/O TIA (transient ischemic attack) and stroke Z86.73 Primary hypertension I10 Hypertension type: primary hypertension Mixed hyperlipidemia E78.2 Hyperlipidemia type: mixed hyperlipidemia Coronary artery disease involving [place] coronary artery of [place] heart without angina pectoris I25.10 Coronary Disease-Associated Artery/Lesion type: [place] artery [place] vs. transplanted heart: [place] heart Associated angina: without angina (3) HTN (hypertension) Hypertension type: primary hypertension Qualified Code(s): I10 - Essential (primary) hypertension (4) Hyperlipidemia Hyperlipidemia type: mixed hyperlipidemia Qualified Code(s): E78.2 - Mixed hyperlipidemia (5) Coronary artery disease Coronary Disease-Associated Artery/Lesion type: [place] artery [place] vs. transplanted heart: [place] heart Associated angina: without angina Qualified Code(s): I25.10 - Atherosclerotic heart disease of [place] coronary artery without angina pectoris
[2024-08-29] MEDS: VANCOMYCIN HCL 2,250 MG in SODIUM CHLORIDE 0.9% 500 ML IV ONE (06:09)
[2024-08-29 06:24] LABS: Appearance Urine Cloudy (Clear); Bacteria Urine Automated None Seen (None Seen); Bilirubin Urine Negative (Negative); Blood Urine Negative (Negative); Cast Urine Automated 0-2 /lpf (0-2); Color Urine Yellow; Epithelial Cell Urine Auto 0-2 /hpf (0-2); Glucose Urine UA Negative (Negative); Ketones Urine Trace (Negative); Leukocyte Esterase Urine Negative (Negative); Nitrite Urine Negative (Negative); Protein Urine Negative (Negative); RBC Urine Automated 0-2 /hpf (0-2); Specific Gravity Urine 1.024 (1.000-1.030); Urobilinogen Urine Negative (Negative); WBC Urine Automated 0-5 /hpf (0-5)
--- NOTE | 2024-08-29 07:19 | Electrocardiogram Report ---
Test Reason : Blood Pressure : */* mmHG Vent. Rate : 76 BPM Atrial Rate : * BPM P-R Int : * ms QRS Dur : 74 ms QT Int : 366 ms P-R-T Axes : * -22 42 degrees QTcB Int : 411 ms SInus rhythm with frequent atrial ectopy and blocked PACs Abnormal ECG Confirmed by Simeon uJdge ([id number]) on 08/29/2024 7:18:45 AM Referred By: REFERRED SELF Confirmed By: Simeon Judge
--- NOTE | 2024-08-29 07:26 | Emergency Department Note ---
Impression & Plan Pain and swelling of left elbow Admit to the [facility] ED Provider Note NAME: JAY CASEY AGE: 79 SEX: Male INFORMANT: Patient ED PROVIDER(S): Aliyah Keller DO CHIEF COMPLAINT: Left arm pain and swelling PLAN: Disposition: Admit to the [facility] MEDICAL DECISION MAKING: This is an 79-year-old male patient who had recently been diagnosed with an effusion in his left elbow and started on Bactrim and Keflex who presents to the emergency department with worsening pain and swelling. I am concerned about the possibility of a septic arthritis. Although, the patient does have a history of gout. Patient has extreme tenderness with any movement to the elbow joint including flexion, extension, supination or pronation. There is erythema noted to the elbow along with increasing edema. An x-ray had been done in the office 3 days ago which showed evidence of a joint effusion. Patient was started on Bactrim and Keflex but symptoms are worsening. A septic protocol was performed here in the emergency department now. There is no significant leukocytosis. H&H were stable. Platelet count was low at 125 but this is baseline for the patient. Sed rate was only mildly elevated at 22. C-reactive protein was more elevated at 4.9. Lactate and procalcitonin were unremarkable. Blood cultures were obtained. Glucose was normal at 114. Chest x-ray was unremarkable. Urinalysis was normal. Patient was prophylactically started on vancomycin and ceftriaxone. I discussed the case with the [facility] Hospitalist. They will evaluate the patient for further inpatient care and consult orthopedics. Care/management discussed with: customer care manager and [facility] Triage Nursing notes: reviewed and agree with them. Vital Signs: reviewed and unremarkable Additional History obtained from: Patient's who is at the bedside Chronic Medical/Social Conditions affecting care: Patient has multiple chronic health problems. He does have a history of gout. He also takes Plavix. Differential Diagnosis: Cellulitis, septic arthritis, gout, sepsis Diagnostics, independently interpreted by me: ECG: atrial fibrillation at a rate of [address] segment elevation or signs of ischemia. There is no ectopy. Cardiac Monitoring: Atrial fibrillation at a rate of 76 Imaging studies: Portable chest x-ray: As per [facility] HPI: 79 year old Male arrives for evaluation of left elbow pain and swelling. Patient developed some discomfort in his left elbow last week. He noticed increased pain and swelling in the left elbow approximately 3 days ago. He woke overnight tonight with extreme pain in the elbow with associated redness surrounding the elbow and now there is increased swelling to the entire left arm and left hand. Patient had been prescribed Bactrim and Keflex 3 days ago after having an x-ray of the elbow at his PCPs office which showed a joint effusion.. PAST MEDICAL HISTORY: See Below, PAST SURGICAL HISTORY: See Below, SOCIAL HISTORY: See Below, HOME MEDICATIONS: See list ALLERGIES: See list VITALS: See Below PHYSICAL EXAMINATION: HEENT: Head - normocephalic and atraumatic. Pupils are equal, round, and reactive to light. Extraocular eye muscles are intact, and sclera are anicteric. Nose - moist nasal mucosa without discharge. Mouth - moist buccal mucosa. Oropharynx is nonerythematous and there is no tonsillar exudate or edema noted. Neck: Supple; no JVD or cervical lymphadenopathy Heart: Regular rate and rhythm. There is a normal S1 and S2 with no murmurs, clicks, or gallops appreciated. Lungs: Clear to auscultation bilaterally with no wheezes, rales, or rhonchi. Abdomen: Soft, completely nontender, nondistended, with good bowel sounds. There are no palpable pulsatile masses or hepatosplenomegaly. There is no guarding, rigidity, or rebound noted. Extremities: Significant erythema and edema noted about the left elbow. Extreme limitation to range of motion to the left elbow because of pain. There are easily palpable pulses in the left wrist with moderate edema noted in the left hand. Skin: warm and dry with good turgor and no rashes. 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 A complete history and physical was performed. A septic protocol was performed. Blood cultures were obtained. Patient was prophylaxed with IV Rocephin and IV vancomycin. I reviewed laboratory studies with the patient and his . A urine specimen was obtained. Chest x-ray was obtained. I discussed the case with the [facility] Hospitalist and they will evaluate for further inpatient care. Past Med/Surg History Problem List (Updated 08/30/24 @ 18:14 by Aliyah A Botti, DO) Pain and swelling of left elbow (Acute) Chondrocalcinosis of left elbow Pseudogout of left elbow Pain and swelling of left elbow H/O TIA (transient ischemic attack) and stroke Impacted cerumen, left ear Dizziness MCI (mild cognitive impairment) Sacral wound H/O pilonidal cyst Dyslipidemia HTN (hypertension) Acute CVA (cerebrovascular accident) (10/2023) Bilateral thumb pain Excessive cerumen in left ear canal Sinus bradycardia Atrial ectopy Mild aortic stenosis Memory impairment Vitamin B 12 deficiency Decreased functional mobility Encounter for examination following treatment at hospital Oral candidiasis Pneumonia (Acute) Influenza A Viral illness Bronchitis Olecranon bursitis of right elbow Bradycardia Right carotid bruit Systolic murmur Fatigue Screening for diabetes mellitus Routine health maintenance Carpal tunnel syndrome, left Ulnar neuropathy at wrist Vitamin D deficiency Screening PSA (prostate specific antigen) Bone/cartilage disorder Arthritis Dermatitis Gout, joint Hyperlipidemia Coronary artery disease GERD (gastroesophageal reflux disease) Medical History Abscess, perirectal (10/2018) Constipation Elevated liver enzymes Hemorrhoids Impaired fasting glucose Stasis dermatitis Varicose vein of leg Surgical History S/P right coronary artery (RCA) stent placement (1996) Family History Mother , age in mid 70s No problems noted. Father , in later 70s of an [place] Myocardial infarction Brother Myocardial infarction Denies family history of Ovarian cancer Prostate cancer Breast cancer Colorectal cancer Social History Smoking Status: Former smoker Tobacco Type: Cigarettes Age Started Using Tobacco: 18; Age Quit Using Tobacco: 23; packs per day: 1; Second Hand Exposure: Yes (As a child-"everyone" smoked in family. 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 How many Children do You have: 3 Other Information That Helps Us Care for You: No Feels Safe at Home: Yes Safety Concerns: Feels Safe At This Time Childhood Exposure to Second-Hand Smoke: Yes Diet: regular caffeine: Yes (coffee and soda.) during the past year weight has: remained stable Dental Care, Regularly: Yes Physical Activity Frequency: Does not Exercise Seatbelt Use: always Sunscreen Use: No Do you think of yourself as: straight/heterosexual Sexual Activity: has been sexually active, but not for at least 12 months Gender Identity: Male Assistive Devices: Cane Assistive Devices Comment: reading glasses. Allergies Allergies Allergy/AdvReac Type Severity Reaction Status Date / Time ticlopidine Allergy Intermediate EYES AND Verified 08/27/24 12:41 FACE SWELL Iodinated Contrast Media Allergy Unknown HIVES Verified 08/27/24 12:41 diclofenac [From Voltaren] AdvReac Mild Aches Verified 08/27/24 12:41 triamterene AdvReac Diarrhea Verified 08/27/24 12:41 Home Meds Home Medications Medication Instructions Recorded Confirmed acetaminophen 500 mg tablet 500 mg PO UD PRN fever or pain 11/17/18 08/29/24 multivitamin 1 tab PO DAILY 08/13/24 08/29/24 Previous Rx's Medication Instructions Recorded nitroglycerin 0.4 mg sublingual 0.4 mg sublingual Q5M PRN chest 05/13/23 tablet pain #25 tabs aspirin 81 mg capsule 81 mg PO DAILY #90 caps 04/02/24 clopidogrel 75 mg tablet 75 mg PO QAM #90 tabs 06/14/24 hydroxyzine HCl 25 mg tablet 25 mg PO BID PRN itching #60 tabs 06/14/24 losartan 25 mg tablet 25 mg PO DAILY #90 tabs 06/14/24 rosuvastatin 20 mg tablet 20 mg PO DAILY #90 tabs 06/14/24 cephalexin 500 mg capsule 500 mg PO BID #14 caps 08/27/24 sulfamethoxazole 800 1 tab PO BID 7 days #14 tabs 08/27/24 mg-trimethoprim 160 mg tablet (Bactrim DS) Results & Data (ED) Vital Signs Vital Signs - 24 hr 08/29/24 03:36 08/29/24 04:00 08/29/24 04:00 Temperature 36.8 C Temperature Source Oral Pulse Rate 81 Pulse Rate [Right Finger] 83 87 Respiratory Rate 20 18 20 Respiratory Effort / Characteristics Non-Labored Spontaneous Non-Labored Spontaneous Non-Labored Spontaneous Respiratory Depth Normal Normal Respiratory Pattern Regular Regular Blood Pressure 148/82 H Blood Pressure [Right Arm] 133/71 133/71 Blood Pressure Mean 104 Blood Pressure Mean [Right Arm] 91 91 Blood Pressure Position [Right Arm] Lying Lying Pulse Oximetry 97 97 96 Oxygen Delivery Method Room Air Room Air Room Air Sepsis Recent Fever Within 48 Hours No Sepsis New/Unexplained Change in Mental Status No Sepsis Action Taken by Nursing No Action Required 08/29/24 04:15 08/29/24 04:44 08/29/24 04:58 Temperature Temperature Source Pulse Rate 85 86 Pulse Rate [Right Finger] 81 Respiratory Rate 20 18 Respiratory Effort / Characteristics Non-Labored Spontaneous Respiratory Depth Respiratory Pattern Blood Pressure Blood Pressure [Right Arm] 158/82 H Blood Pressure Mean Blood Pressure Mean [Right Arm] 107 Blood Pressure Position [Right Arm] Lying Pulse Oximetry 97 95 Oxygen Delivery Method Room Air Room Air Sepsis Recent Fever Within 48 Hours Sepsis New/Unexplained Change in Mental Status Sepsis Action Taken by Nursing 08/29/24 04:59 08/29/24 05:29 08/29/24 05:55 Temperature 36.8 C Temperature Source Oral Pulse Rate Pulse Rate [Right Finger] 76 85 77 Respiratory Rate 22 20 18 Respiratory Effort / Characteristics Non-Labored Spontaneous Non-Labored Spontaneous Non-Labored Spontaneous Respiratory Depth Respiratory Pattern Regular Regular Blood Pressure Blood Pressure [Right Arm] 158/82 H 144/70 H 142/71 H Blood Pressure Mean Blood Pressure Mean [Right Arm] 107 94 94 Blood Pressure Position [Right Arm] Lying Lying Lying Pulse Oximetry 94 96 95 Oxygen Delivery Method Room Air Room Air Room Air Sepsis Recent Fever Within 48 Hours Sepsis New/Unexplained Change in Mental Status Sepsis Action Taken by Nursing 08/29/24 06:35 Temperature Temperature Source Pulse Rate Pulse Rate [Right Finger] 76 Respiratory Rate 20 Respiratory Effort / Characteristics Non-Labored Spontaneous Respiratory Depth Respiratory Pattern Regular Blood Pressure Blood Pressure [Right Arm] 140/67 Blood Pressure Mean Blood Pressure Mean [Right Arm] 91 Blood Pressure Position [Right Arm] Lying Pulse Oximetry 94 Oxygen Delivery Method Room Air Sepsis Recent Fever Within 48 Hours Sepsis New/Unexplained Change in Mental Status Sepsis Action Taken by Nursing Laboratory Data 08/30/24 07:12 08/30/24 07:12 Lab Results 08/29/24 08/29/24 08/29/24 Range/Units 04:14 04:33 06:00 WBC 9.34 (4.8-10.8) K/ul RBC 4.83 (4.70-6.10) M/uL Hgb 14.1 (14.0-18.0) g/dl Hct 40.3 L (42.0-52.0) % MCV 83.4 (80.0-100.0) fL MCH 29.2 (25.0-34.0) pg MCHC 35.0 (32.0-36.0) g/dL RDW Std Deviation 38.1 (36.4-46.3) fL RDW Coeff of Paramjit 12.6 (11.5-14.5) % Plt Count 125 L (130-400) K/uL MPV 9.7 (9.4-12.4) fL Immature Gran % (Auto) 0.3 % Neut % (Auto) 70.6 % Lymph % (Auto) 16.3 % Sandoval % (Auto) 11.8 % Eos % (Auto) 0.6 % Baso % (Auto) 0.4 % Neut # (Auto) 6.59 H (1.40-6.50) K/uL Lymph # (Auto) 1.52 (1.20-3.40) K/uL [place] # (Auto) 1.10 H (0.11-0.59) K/uL Eos # (Auto) 0.06 (0.00-0.50) K/uL Baso # (Auto) 0.04 (0.00-0.20) K/uL Immature Gran # (Auto) 0.03 (0.01-0.20) K/uL ESR 22 H (0-20) mm/hr Sodium 135 L (136-145) mmol/L Potassium 4.2 (3.5-5.1) mmol/L Chloride 105 (98-107) mmol/L Carbon Dioxide 25 (21-32) mmol/L Anion Gap 5 (3-11) BUN 22 (6-23) mg/dl Creatinine 1.13 (0.6-1.4) mg/dl Est Cr Clr Drug Dosing 52.9 ml/min eGFR 65.30 BUN/Creatinine Ratio 19.5 (10-20) Glucose 114 H (70-99(Fasting)) mg/dl Lactate 0.9 (0.4-2.0) mmol/L Calcium 9.2 (8.6-10.3) mg/dl Magnesium 2.0 (1.7-2.4) mg/dl Total Bilirubin 0.8 (0.2-1.0) mg/dl Direct Bilirubin 0.1 (0-0.2) mg/dl AST 19 (13-39) U/L ALT 11 (7-52) U/L Alkaline Phosphatase 72 (34-104) U/L Troponin I High Sens 10.2 (0-20) pg/ml C-Reactive Protein 4.96 H (0-0.5) mg/dl Total Protein 6.6 (6.0-8.3) gm/dl Albumin 3.9 (3.4-5.0) gm/dl Procalcitonin < 0.02 (0-0.5) ng/ml Urine Color Yellow Urine Appearance Cloudy A (Clear) Urine pH 5.0 (4.5-7.5) Ur Specific [place] 1.024 (1.000-1.030) Urine Protein Negative (Negative) Urine Glucose (UA) Negative (Negative) Urine Ketones Trace H (Negative) Urine Blood Negative (Negative) Urine Nitrite Negative (Negative) Urine Bilirubin Negative (Negative) Urine Urobilinogen Negative (Negative) Ur Leukocyte Esterase Negative (Negative) Urine WBC (Auto) 0-5 (0-5) /hpf Urine RBC (Auto) 0-2 (0-2) /hpf U Hyaline Cast (Auto) 0-2 (0-2) /lpf U Epithel Cells (Auto) 0-2 (0-2) /hpf Urine Bacteria (Auto) None Seen (None Seen) Administered Medications Aspirin (Aspirin 81 Mg Ectab) 81 mg PO DAILY ALLEN Stop: 09/28/24 11:29 Last Admin: 08/30/24 08:04 Dose: 81 mg Documented By: Admin: 08/29/24 12:18 Dose: 81 mg Documented By: TNK Ceftriaxone Sodium (Rocephin) 2,000 mg in 50 mls @ 100 mls/hr IV Q24H ALLEN Stop: 10/11/24 04:59 Last Infusion: 08/30/24 06:33 Dose: Infused Documented By: Admin: 08/30/24 05:55 Dose: 100 mls/hr Documented By: DOMINIQUE Vancomycin HCl 1,250 mg/ (Sodium Chloride) 275 mls @ 200 mls/hr IV Q18H ALLEN Stop: 10/11/24 14:59 Last Admin: 08/30/24 16:44 Dose: 200 mls/hr Documented By: CARRIE Losartan Potassium (Losartan Potassium 25 Mg Tab) 25 mg PO DAILY ALLEN Stop: 09/28/24 11:29 Last Admin: 08/30/24 08:04 Dose: 25 mg Documented By: Admin: 08/29/24 12:18 Dose: 25 mg Documented By: BETZY Rosuvastatin Calcium (Rosuvastatin Calcium 20 Mg Tab) 20 mg PO DAILY ALLEN Stop: 09/28/24 11:29 Last Admin: 08/30/24 08:04 Dose: 20 mg Documented By: Admin: 08/29/24 12:19 Dose: 20 mg Documented By: BETZY Discontinued Medications Acetaminophen (Acetaminophen 325 Mg Tab) 650 mg PO Q6H PRN PRN Reason: headache;T>100.4F;pain 1-10 Stop: 09/28/24 09:29 Last Admin: 08/29/24 14:18 Dose: 650 mg Documented By: Ceftriaxone Sodium (Rocephin) 2,000 mg in 50 mls @ 100 mls/hr IV NOW STA Stop: 08/29/24 04:45 Last Infusion: 08/29/24 05:32 Dose: Infused Documented By: Admin: 08/29/24 04:53 Dose: 100 mls/hr Documented By: AGUEDA Vancomycin HCl 2,250 mg/ (Sodium Chloride) 545 mls @ 200 mls/hr IV NOW ONE Stop: 08/29/24 07:00 Last Infusion: 08/29/24 09:30 Dose: Infused Documented By: Admin: 08/29/24 06:09 Dose: 200 mls/hr Documented By: AGUEDA Sodium Chloride (Nss) 1,000 mls @ 125 mls/hr IV .Q8H ALLEN Stop: 08/29/24 18:40 Last Infusion: 08/29/24 21:18 Dose: Infused Documented By: Admin: 08/29/24 13:18 Dose: 125 mls/hr Documented By: Vancomycin HCl 1,250 mg/ (Sodium Chloride) 275 mls @ 200 mls/hr IV Q24H ALLEN Stop: 10/10/24 21:59 Last Infusion: 08/29/24 23:38 Dose: Infused Documented By: Admin: 08/29/24 22:15 Dose: 200 mls/hr Documented By: DOMINIQUE Imaging Data Radiologist's Impression: Chest X-Ray 08/29/24 04:14 EXAM: XR chest 1V portable CLINICAL HISTORY: Sepsis TECHNIQUE: An X-ray image of the chest is obtained in AP projection. COMPARISON: No prior studies are available for comparison. FINDINGS: Pulmonary Parenchyma: Prominent bilateral bronchovascular markings. No evidence of consolidation, collapse, or focal opacities. No pulmonary nodules are identified. No evidence of pleural effusion or pleural thickening. Heart and Mediastinum: Heart size and shape are normal. No mediastinal widening or masses. No hilar or mediastinal lymphadenopathy. Bony Thorax: Bony thorax appears intact without fractures or deformities. Soft Tissues: Soft tissues overlying the chest wall are unremarkable. IMPRESSION: No acute cardiopulmonary abnormalities are identified. Electronically signed by Xavi Cole 08-29-2024 05:33 AM Discharge Plan Visit Data Chief Complaint: Infection Stated Complaint: ARM INFECTION,SWELLING ED Provider: Aliyah Keller Discharge Problem: Pain and swelling of left elbow Patient Disposition: Admitted As Inpatient Condition: Serious Discharge Instructions Interventions: ED Discharge Assessment Last Done: 08/29/24 10:41
[2024-08-29] MEDS ORDERED: VANCOMYCIN HCL 1,000 MG/270 ML BAG IV SCH (10:41)
[2024-08-29] MEDS ORDERED: ACETAMINOPHEN 325 MG TAB PO PRN ×2 (10:41→14:32)
[2024-08-29] MEDS ORDERED: ONDANSETRON INJ 2 MG/ML 2 ML VIAL IV PRN (10:41)
--- NOTE | 2024-08-29 11:17 | Pharmacy Report ---
Pharmacy PK ABX Note - Date of Service August 29, 2024 - Assessment and Plan Assessment 79 year old M receiving Vancomycin + Ceftriaxone for treatment of possible elbow joint infection. * Day #1 of antimicrobial therapy. * Afebrile. No white count. SCr slightly elevated from baseline, 1.13 mg/dL today. ESR/CRP mildly elevated. Lactate and procal negative. * Blood cultures pending. Plan Vancomycin * Loading dose: 2250 mg IV x 1 * Maintenance dose: 1250 mg IV every 24 hours * Regimen is predicted to achieve target AUC/LISA of 400-600 mg/L.hr * Random level ordered for: 08/31/24 Ceftriaxone * 2000 mg IV every 24 hours Pharmacy will continue to follow and will adjust dose/frequency as necessary. Thank you. Pharmacy has transitioned to AUC monitoring for vancomycin. AUC/LISA is the preferred PK/PD target and is associated with decreased risk of nephrotoxicity compared to traditional trough targets.
[2024-08-29] MEDS: LOSARTAN POTASSIUM 25 MG TAB PO SCH (12:18)
[2024-08-29] MEDS: ASPIRIN 81 MG ECTAB PO SCH (12:18)
[2024-08-29] MEDS: ROSUVASTATIN CALCIUM 20 MG TAB PO SCH (12:19)
[2024-08-29] MEDS: SODIUM CHLORIDE 0.9% 1,000 ML IV SCH (13:18)
[2024-08-29] MEDS: ACETAMINOPHEN 325 MG TAB PO PRN (14:18)
[2024-08-29] MEDS ORDERED: MoRPHine SULFATE 4 MG/ML 1 ML CARP\\VIAL IV PRN ×2 (14:31→14:32)
[2024-08-29] MEDS: VANCOMYCIN HCL 1,250 MG in SODIUM CHLORIDE 0.9% 250 ML IV SCH (22:15)
[2024-08-30] MEDS ORDERED: cefTRIAXone SODIUM 1,000 MG/50 ML BAG IV SCH (05:00)
[2024-08-30] MEDS: cefTRIAXone SODIUM 2,000 MG/50 ML BAG IV SCH (05:55)
[2024-08-30 07:37] LABS: Basophils # (auto) 0.03 K/uL (0.00-0.20); Basophils % (auto) 0.5 %; Eosinophils % (auto) 1.6 %; Hematocrit (blood only) 38.3 % (42.0-52.0); Hemoglobin 13.3 g/dl (14.0-18.0); Immature Granulocytes # (auto) 0.03 K/uL (0.01-0.20); Immature Granulocytes % (auto) 0.5 %; Lymphocytes # (auto) 1.25 K/uL (1.20-3.40); Lymphocytes % (auto) 19.6 %; Mean Corpuscular Hemoglobin 29.4 pg (25.0-34.0); Mean Corpuscular Hgb Conc 34.7 g/dL (32.0-36.0); Mean Corpuscular Volume 84.5 fL (80.0-100.0); Mean Platelet Volume 10.2 fL (9.4-12.4); Monocytes # (auto) 0.75 K/uL (0.11-0.59); Monocytes % (auto) 11.8 %; Neutrophils # (auto) 4.21 K/uL (1.40-6.50); Platelet Count 109 K/uL (130-400); RDW Coefficient of Variation 12.6 % (11.5-14.5); RDW Standard Deviation 38.5 fL (36.4-46.3); Red Blood Count 4.53 M/uL (4.70-6.10); White Blood Count 6.37 K/ul (4.8-10.8)
[2024-08-30 07:51] LABS: BUN Creatinine Ratio 20.9 (10-20); Calcium 8.5 mg/dl (8.6-10.3); Creatinine Clr Calc Pharmacy 69.6 ml/min
[2024-08-30 09:39] LABS: C Reactive Protein 4.69 mg/dl (0-0.5); Uric Acid 4.2 mg/dl (2.6-7.2)
--- NOTE | 2024-08-30 11:43 | Orthopedic Consultation ---
Date of Service August 30, 2024 Assessment & Plan (1) Pain and swelling of left elbow: (2) Pseudogout of left elbow: (3) Chondrocalcinosis of left elbow: Plan Patient was also seen by Dr. Packer. ESR has returned to within normal range, while CRP remains elevated. However, currently, minimal to no suspicion for joint infection. Suspected pseudogout flare left elbow. No indication for surgical intervention; may discontinue NPO status. With no palpable significant effusion, suspect that arthrocentesis would yield minimal to no fluid for evaluating for crystals, and so no attempt will be made for aspiration. Additionally, would suspect that findings would not change the plan and course of action for treatment. Will order injection with Kenalog and bupivacaine. -Please have medications and injection supplies available at bedside for injection tomorrow AM, Friday, 08/31. Primary service may give consideration for course of IV vs. oral steroids pending response to injection. We briefly discussed that if conservative measures are not effective at controlling the patient's pain, he may eventually need to see an upper extremity specialist to discuss elbow replacement. However, it is hopeful that he will have a good response to tomorrow's injection. History of Present Illness Reason for Consultation: left elbow pain, swelling Requesting Physician: . Attending Physician: Damien De La Paz MD, PhD Hospitalist note 08/29/2024: 79yo male with history of HTN, CAD s/p stent placement presenting with left elbow swelling and pain. Patient denies trauma or abrasion/skin break to the area. No recent insect bites. He developed some pain and swelling several days ago - has been progressive over the last two days. Seen by his PCP yesterday and had an xray performed which showed moderate degenerative changes and joint effusion. Patient was started on Keflex and Bactrim - has taken two doses thus far. Overnight 08/28 going into 08/29 patient developed worsening swelling and pain in the left elbow. Also with some edema of the left hand and some pain in the left shoulder. Denies fever, chills, nausea, vomiting, diarrhea No additional complaints at this time No history of prior In the ER he is afebrile, HD stable ER Course: Ceftriaxone Vancomycin #Pain and swellling of left elbow: several days of progressive symptoms. Labs with elevated inflammatory markers - ESR=22, CRP=4.96. X-ray performed 08/27/24 with joint effusion present. Patient has taken PO antibiotics prior to arrival. Concern for joint infection. Possible crystal arthropathy - patient has had gout in the past but has never effected his elbows. Symptoms seem to be somewhat extensive for olecranon bursitis -Admit to medical -Follow cultures sent from ER -Continue antibiotic coverage with Vancomycin and Ceftriaxone -Tylenol PRN -Orthopedics consultation appreciated -Will keep patient NPO for now -Will hold Plavix but continue ASA Today, the patient is diffusely tender to the left elbow, mainly over the medial and lateral joint lines. There really is no palpable effusion or fluid collection. There does not appear to be any erythema or concern for septic olecranon bursitis. Patient does admit to a history of gout, but it does not seem that he is on any maintenance medication. ESR was mildly elevated at 22 yesterday, but his within normal range today at 20. C-reactive protein does remain elevated, 4.96 yesterday, and 4.69 today. Patient denies any recent fever, chills or symptoms of generalized malaise. Allergies Allergy/AdvReac Type Severity Reaction Status Date / Time ticlopidine Allergy Intermediate EYES AND Verified 08/27/24 12:41 FACE SWELL Iodinated Contrast Media Allergy Unknown HIVES Verified 08/27/24 12:41 diclofenac [From Voltaren] AdvReac Mild Aches Verified 08/27/24 12:41 triamterene AdvReac Diarrhea Verified 08/27/24 12:41 Home Medications Medication Instructions Recorded Confirmed Type acetaminophen 500 mg tablet 500 mg PO UD PRN fever or pain 11/17/18 08/29/24 History nitroglycerin 0.4 mg sublingual 0.4 mg sublingual Q5M PRN chest 05/13/23 08/29/24 Rx tablet pain #25 tabs aspirin 81 mg capsule 81 mg PO DAILY #90 caps 04/02/24 08/29/24 Rx clopidogrel 75 mg tablet 75 mg PO QAM #90 tabs 06/14/24 08/29/24 Rx hydroxyzine HCl 25 mg tablet 25 mg PO BID PRN itching #60 tabs 06/14/24 08/29/24 Rx losartan 25 mg tablet 25 mg PO DAILY #90 tabs 06/14/24 08/29/24 Rx rosuvastatin 20 mg tablet 20 mg PO DAILY #90 tabs 06/14/24 08/29/24 Rx multivitamin 1 tab PO DAILY 08/13/24 08/29/24 History cephalexin 500 mg capsule 500 mg PO BID #14 caps 08/27/24 08/29/24 Rx sulfamethoxazole 800 1 tab PO BID 7 days #14 tabs 08/27/24 08/29/24 Rx mg-trimethoprim 160 mg tablet (Bactrim DS) Past Med/Surg History Problem List (Updated 08/30/24 @ 14:44 by iDdier Mora PA-C) Chondrocalcinosis of left elbow Pseudogout of left elbow Pain and swelling of left elbow H/O TIA (transient ischemic attack) and stroke Impacted cerumen, left ear Dizziness MCI (mild cognitive impairment) Sacral wound H/O pilonidal cyst Dyslipidemia HTN (hypertension) Acute CVA (cerebrovascular accident) (10/2023) Bilateral thumb pain Excessive cerumen in left ear canal Sinus bradycardia Atrial ectopy Mild aortic stenosis Memory impairment Vitamin B 12 deficiency Decreased functional mobility Encounter for examination following treatment at hospital Oral candidiasis Pneumonia (Acute) Influenza A Viral illness Bronchitis Olecranon bursitis of right elbow Bradycardia Right carotid bruit Systolic murmur Fatigue Screening for diabetes mellitus Routine health maintenance Carpal tunnel syndrome, left Ulnar neuropathy at wrist Vitamin D deficiency Screening PSA (prostate specific antigen) Bone/cartilage disorder Arthritis Dermatitis Gout, joint Hyperlipidemia Coronary artery disease GERD (gastroesophageal reflux disease) Medical History Abscess, perirectal (10/2018) Constipation Elevated liver enzymes Hemorrhoids Impaired fasting glucose Stasis dermatitis Varicose vein of leg Surgical History S/P right coronary artery (RCA) stent placement (1996) Family History Mother , age in mid 70s No problems noted. Father , in later 70s of an [place] Myocardial infarction Brother Myocardial infarction Denies family history of Ovarian cancer Prostate cancer Breast cancer Colorectal cancer Social History Smoking Status: Former smoker Tobacco Type: Cigarettes Age Started Using Tobacco: 18; Age Quit Using Tobacco: 23; packs per day: 1; Second Hand Exposure: Yes (As a child-"everyone" smoked in family. 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 How many Children do You have: 3 Other Information That Helps Us Care for You: No Feels Safe at Home: Yes Safety Concerns: Feels Safe At This Time Childhood Exposure to Second-Hand Smoke: Yes Diet: regular caffeine: Yes (coffee and soda.) during the past year weight has: remained stable Dental Care, Regularly: Yes Physical Activity Frequency: Does not Exercise Seatbelt Use: always Sunscreen Use: No Do you think of yourself as: straight/heterosexual Sexual Activity: has been sexually active, but not for at least 12 months Gender Identity: Male Assistive Devices: Cane Assistive Devices Comment: reading glasses. Review of Systems All systems reviewed & are unremarkable except as noted in HPI & below. Physical Exam GENERAL: Speech and cognition is intact. Mood and affect is appropriate. In no acute distress. HEAD: Normocephalic; atraumatic. CHEST: Regular chest respiration and excursion. SKIN: No lesions, erythema, or rashes noted. Musculoskeletal Extremities: + upper extremity abnormal to inspection Left (elbow), + limited ROM of upper extremity Left (elbow) and + elbow/forearm abnormality Left (swelling to elbow joint and into forearm and hand/digits) CYNTHIA GONZALEZ distally Results & Data Results & Data Laboratory Results . Laboratory Results - last 48 hr 08/29/24 08/29/24 08/29/24 04:14 04:33 06:00 WBC 9.34 RBC 4.83 Hgb 14.1 Hct 40.3 L MCV 83.4 MCH 29.2 MCHC 35.0 RDW Std Deviation 38.1 RDW Coeff of Paramjit 12.6 Plt Count 125 L MPV 9.7 Immature Gran % (Auto) 0.3 Neut % (Auto) 70.6 Lymph % (Auto) 16.3 [place] % (Auto) 11.8 Eos % (Auto) 0.6 Baso % (Auto) 0.4 Neut # (Auto) 6.59 H Lymph # (Auto) 1.52 [place] # (Auto) 1.10 H Eos # (Auto) 0.06 Baso # (Auto) 0.04 Immature Gran # (Auto) 0.03 ESR 22 H Sodium 135 L Potassium 4.2 Chloride 105 Carbon Dioxide 25 Anion Gap 5 BUN 22 Creatinine 1.13 Est Cr Clr Drug Dosing 52.9 eGFR 65.30 BUN/Creatinine Ratio 19.5 Glucose 114 H Lactate 0.9 Uric Acid Calcium 9.2 Magnesium 2.0 Total Bilirubin 0.8 Direct Bilirubin 0.1 AST 19 ALT 11 Alkaline Phosphatase 72 Troponin I High Sens 10.2 C-Reactive Protein 4.96 H Total Protein 6.6 Albumin 3.9 Procalcitonin < 0.02 Urine Color Yellow Urine Appearance Cloudy A Urine pH 5.0 Ur Specific [place] 1.024 Urine Protein Negative Urine Glucose (UA) Negative Urine Ketones Trace H Urine Blood Negative Urine Nitrite Negative Urine Bilirubin Negative Urine Urobilinogen Negative Ur Leukocyte Esterase Negative Urine WBC (Auto) 0-5 Urine RBC (Auto) 0-2 U Hyaline Cast (Auto) 0-2 U Epithel Cells (Auto) 0-2 Urine Bacteria (Auto) None Seen 08/30/24 08/30/24 07:12 09:23 WBC 6.37 RBC 4.53 L Hgb 13.3 L Hct 38.3 L MCV 84.5 MCH 29.4 MCHC 34.7 RDW Std Deviation 38.5 RDW Coeff of Paramjit 12.6 Plt Count 109 L MPV 10.2 Immature Gran % (Auto) 0.5 Neut % (Auto) 66.0 Lymph % (Auto) 19.6 [place] % (Auto) 11.8 Eos % (Auto) 1.6 Baso % (Auto) 0.5 Neut # (Auto) 4.21 Lymph # (Auto) 1.25 [place] # (Auto) 0.75 H Eos # (Auto) 0.10 Baso # (Auto) 0.03 Immature Gran # (Auto) 0.03 ESR 20 Sodium 137 Potassium 4.0 Chloride 108 H Carbon Dioxide 25 Anion Gap 4 BUN 18 Creatinine 0.86 Est Cr Clr Drug Dosing 69.6 eGFR 86.99 BUN/Creatinine Ratio 20.9 H Glucose 108 H Lactate 1.2 Uric Acid 4.2 Calcium 8.5 L Magnesium Total Bilirubin Direct Bilirubin AST ALT Alkaline Phosphatase Troponin I High Sens C-Reactive Protein 4.69 H Total Protein Albumin Procalcitonin 0.02 Urine Color Urine Appearance Urine pH Ur Specific [place] Urine Protein Urine Glucose (UA) Urine Ketones Urine Blood Urine Nitrite Urine Bilirubin Urine Urobilinogen Ur Leukocyte Esterase Urine WBC (Auto) Urine RBC (Auto) U Hyaline Cast (Auto) U Epithel Cells (Auto) Urine Bacteria (Auto) Diagnostic Findings XR elbow LT min 3V routine CLINICAL HISTORY: M25.522 - Pain in left elbow COMPARISON: None FINDINGS: There are moderate degenerative changes. There is chondrocalcinosis. There is a moderate joint effusion. No erosion seen. No fracture or dislocation. IMPRESSION: Moderate degenerative changes and joint effusion. ACT 112: Negative or not required by law. Electronically signed by: Song Cortés M.D. 08/27/2024 1:24 PM Dictated: 08/27/24 1323 Transcribed: 08/27/24 1323 PG Care Time/CCT Total # of Minutes Spent Total Time Spent with Patient: Total time spent is greater than 50% in coordination of care (as documented) at patient's floor/unit and/or counseling patient: [place] [address] IN/OBS CONSULT LVL 5,80M Patient Type New History Expanded Problem Focused Exam Expanded Problem Focused Medical Decision Making Moderate Complexity Diagnoses Pain and swelling of left elbow M25.522; M25.422 Pseudogout of left elbow M11.222 Chondrocalcinosis of left elbow M11.222
[2024-08-30] MEDS: VANCOMYCIN HCL 1,250 MG in SODIUM CHLORIDE 0.9% 250 ML IV SCH (16:44)
--- NOTE | 2024-08-30 19:20 | Hospitalist Progress Note ---
Date of Service August 30, 2024 Assessment & Plan (1) Pain and swelling of left elbow: (2) H/O TIA (transient ischemic attack) and stroke: (3) HTN (hypertension): (4) Hyperlipidemia: (5) Coronary artery disease: Plan 79 years old right-handed male with PMH of FULL CODE @ home, overweight with BMI 27.2 (height 177.8 cm; weight 86.0g kg), chronic thrombocytopenia with baseline platelet count range, 39 (06/05/2017, 11:55am) to 128 (11/19/2023, 6:28am), CVD s/p acute non-hemorrhagic, ischemic 1.5 cm left lentiform nuclear CVA (as noted on 11/17/2023 MRI brain without contrast), followed by mild forgetfulness of recent events, not remote ones, CAD s/p stent x 1 (1996), HTN, and gouty arthritis of the bilateral halluces, who presented to [facility] ER on 08/27/2024 with complaints of progressive pain and swelling of left elbow. Patient was subsequently placed in OBSERVATION on the hospitalist service @ [facility] on 08/29/2024 with the following diagnosis: 1. Acute left olecranon bursitis, R/O acute left olecranon/forearm cellulitis. The following medical issues are being addressed: 1. Acute left olecranon bursitis, R/O acute left olecranon/forearm cellulitis. Patient remains afebrile and feels better on 08/30/2024, after having received ceftriaxone 2g IV daily x 2 doses (08/29/2024, 4:53am; 08/30/2024, 5:55am), vancomycin 2.25g IV x 1 dose (08/29/2024, 6:09am), and vancomycin 1.25g IV x 1 dose (08/30/2024, 10:15pm), even though patient's WBC remains normal. Subsequently, I have opted to continue ceftriaxone 2g IV daily (day #3 on 08/31/2024 am) and vancomycin 1.25g IV q18 (day #3 on 08/31/2024 am) as patient awaits triamcinolone injection into left olecranon bursa on 08/31/2024 am with Orthopedic Surgery Service of Mr. Didier Mora PA-C, who evaluated patient today (08/30/2024, 11:41am) and instructed nursing to have triamcinolone and bupivacaine at patient's bedside for 08/31/2024 am injection into left olecranon bursa. Subsequently, I anticipate that patient will be discharged back to his home on 08/31/2024 am after triamcinolone injection into left olecranon bursa. Other secondary medical issues include: #CVD, s/p acute non-hemorrhagic, ischemic 1.5 cm left lentiform nuclear CVA (as noted on 11/17/2023 MRI brain without contrast), followed by mild forgetfulness of recent events, not remote ones -Continue ASA -Hold Plavix -Continue Rosuvastatin #Hypertension -Well-controlled with BP 134/70 (08/30/2024, 3:44pm) on home-scheduled losartan 25mg PO daily -Monitor BP #CAD, s/p stent x1 (1996). -Continue ASA, Hold Plavix -Continue Rosuvastatin -Continue Losartan Admission and Anticipated Discharge Date Admission Date: August 29, 2024 Subjective "I feel better today; less pain in my left elbow, less swollen too. No fevers or chills overnight. I think the antibiotics are helping." Review of Systems Constitutional: Patient denies antecedent/coincident fevers, chills, diaphoresis, shortness of breath, cough, wheeze, sore throat, hemoptysis, chest pains, palpitations, pleurisy, nausea, vomiting, diarrhea, abdominal pain, pelvic pain, hematemesis, hematochezia, melena, hematuria, dysuria, frequency, urgency, headaches, dizzine ss, lightheadedness, visual changes, hearing changes, weakness, falls, trauma, syncope, travel history, sick contacts, or food/drug ingestions novel or new. All other review of systems are reported as negative by the patient on 08/30/2024. Physical Exam Constitutional: General: Comfortable, coherent, cooperative. Wide awake and alert. Not confused, lethargic, or obtunded. Patient speaks in complete, fluent, and articulate sentences without pause, interruption, cough, or wheeze. HEENT: Normocephalic, atraumatic. PERRL. EOMI. No nystagmus, gaze paresis, anisocoria, miosis, mydriasis, hyphema, scleral injection, conjunctivitis, or pterygium. No otorrhea or rhinorrhea. No pharyngeal erythema, edema, or discharge. Neck: Supple, no stridor, bruit, goiter, or hepato-jugular reflux. Jugular venous pressure is estimated to be 3 cm above the sternal angle of Nathanael, which in turn, is 5 cm above the level of the right atrium; with jugular venous pressure estimated to be 8 cm, then, there is no jugular venous distention on 08/30/2024. Lymphatics: No cervical (anterior/posterior), supraclavicular, infraclavicular, axillary, epitrochlear, or inguinal adenopathy. Chest: Symmetric rise and fall with respirations. Non-tender to palpation. Lungs: Clear to auscultation and percussion. Heart: Regular rate and rhythm. S1 and S2 noted. No S3 or S4 summation gallop. No tripartite friction rub. Grade II/ early systolic murmur @ LLSB without radiation to the carotids, axilla, or back, and which remains invariant in regards to the respiratory cycle. Abdomen: Soft, non-tender, non-distended. No rebound, guarding, Nation's sign, or organomegaly. Bowel sounds auscultated in all 4 quadrants. Extremities: No clubbing, cyanosis, or edema. 2+ pedal pulses bilaterally. Skin: No decubitus ulcer, exanthem, or enanthem. Genito-urinary: No urethral discharge. No mccollum catheter. Patient utilizes urinal independently since 08/30/2024. Neurology: Alert and oriented in regards to person, place, time, and situation. DTR+ and symmetric. 5/5 motor strength in all 4 extremities, both proximally and distally. No pronator drift. No facial droop. No dysarthria. Psychiatry: No homicidal ideation. No suicidal ideation. No flat affect; smiles appropriately. Results & Data Results & Data Vital Signs (Past 12 Hours) Vital Signs Temp Pulse Resp BP Pulse Ox O2 Del Method 08/30/24 15:44 37.1 C 82 16 134/70 97 Room Air 08/30/24 12:33 36.4 C L 72 18 168/75 H 97 Room Air 08/30/24 08:18 36.8 C 73 17 136/68 96 Room Air Laboratory Results WBC 9.34, N71 L16 M12 E1, Hb 14.1, MCV 83.4, MCHC 35.0, platelet 125 (08/29/2024, 4:33am). WBC 6.37, N66 L20 M12 E2, Hb 13.3, MCV 84.5, MCHC 34.7, platelet 109 (08/30/2024 , 7:12am). Na 135, K 4.2, BUN 22, creatinine 1.13, glucose 114, Ca 9.2, AST 19, ALT 11, ALK PHOS 72, TBili 0.8 (08/29/2024, 4:14am). Na 137, K 4.0, BUN 18, creatinine 0.86, glucose 108, Ca 8.5, (08/30/2024, 7:12am). CRP 4.96 mg/dL (08/29/2024, 4:14am). CRP 4.69 mg/dL (08/30/2024, 7:12am). ESR 22 mm/hr (08/29/2024, 4:33am). ESR 20 mm/hr (08/30/2024, 7:12am). Procalcitonin < 0.02 ng/mL (08/29/2024, 4:14am). Procalcitonin 0.02 ng/mL (08/30/2024, 9:23am). Diagnostic Findings Portable CXR (08/29/2024, 4:14am): No infiltrate, effusion, cardiomegaly, pulmonary vascular congestion, or pneumothorax (by my review). Left elbow x-ray (08/27/2024, 12:51pm): Moderate degenerative changes. There is chondrocalcinosis. There is a moderate joint effusion. No erosion seen. No fracture or dislocation. PG Care Time/CCT Total # of Minutes Spent Total Time Spent with Patient: Total time spent is greater than 50% in coordination of care (as documented) at patient's floor/unit and/or counseling patient: Coding Level of Care Code 80562 SUB INP/OBS CARE 2/35MIN Diagnoses Pain and swelling of left elbow M25.522; M25.422 H/O TIA (transient ischemic attack) and stroke Z86.73 Primary hypertension I10 Hypertension type: primary hypertension Mixed hyperlipidemia E78.2 Hyperlipidemia type: mixed hyperlipidemia Coronary artery disease involving [place] coronary artery of [place] heart without angina pectoris I25.10 Coronary Disease-Associated Artery/Lesion type: [place] artery [place] vs. transplanted heart: [place] heart Associated angina: without angina (3) HTN (hypertension) Hypertension type: primary hypertension Qualified Code(s): I10 - Essential (primary) hypertension (4) Hyperlipidemia Hyperlipidemia type: mixed hyperlipidemia Qualified Code(s): E78.2 - Mixed hyperlipidemia (5) Coronary artery disease Coronary Disease-Associated Artery/Lesion type: [place] artery [place] vs. transplanted heart: [place] heart Associated angina: without angina Qualified Code(s): I25.10 - Atherosclerotic heart disease of [place] coronary artery without angina pectoris
[2024-08-31 06:58] VITALS: BP 164/77; PULSE 66; RESP 16; TEMP 98.6; O2SAT 94
--- NOTE | 2024-08-31 08:07 | Hospitalist Progress Note ---
Date of Service August 31, 2024 Assessment & Plan (1) Pain and swelling of left elbow: (2) H/O TIA (transient ischemic attack) and stroke: (3) HTN (hypertension): (4) Hyperlipidemia: (5) Coronary artery disease: Plan 79 years old right-handed male with PMH of FULL CODE @ home, overweight with BMI 27.2 (height 177.8 cm; weight 86.0g kg), chronic thrombocytopenia with baseline platelet count range, 39 (06/05/2017, 11:55am) to 128 (11/19/2023, 6:28am), CVD s/p acute non-hemorrhagic, ischemic 1.5 cm left lentiform nuclear CVA (as noted on 11/17/2023 MRI brain without contrast), followed by mild forgetfulness of recent events, not remote ones, CAD s/p stent x 1 (1996), HTN, and gouty arthritis of the bilateral halluces, who presented to [facility] ER on 08/27/2024 with complaints of progressive pain and swelling of left elbow. Patient was subsequently placed in OBSERVATION on the hospitalist service @ [facility] on 08/29/2024 with the following diagnosis: 1. Acute left olecranon bursitis, R/O acute left olecranon/forearm cellulitis. The following medical issues are being addressed: 1. Acute left olecranon bursitis, R/O acute left olecranon/forearm cellulitis. Patient remains afebrile and feels better on 08/30/2024, after having received ceftriaxone 2g IV daily x 2 doses (08/29/2024, 4:53am; 08/30/2024, 5:55am), vancomycin 2.25g IV x 1 dose (08/29/2024, 6:09am), and vancomycin 1.25g IV x 1 dose (08/30/2024, 10:15pm), even though patient's WBC remains normal. Subsequently, I have opted to continue ceftriaxone 2g IV daily (day #3 on 08/31/2024 am) and vancomycin 1.25g IV q18 (day #3 on 08/31/2024 am) as patient awaits triamcinolone injection into left olecranon bursa on 08/31/2024 am with Orthopedic Surgery Service of Mr. Didier Mora PA-C, who evaluated patient today (08/30/2024, 11:41am) and instructed nursing to have triamcinolone and bupivacaine at patient's bedside for 08/31/2024 am injection into left olecranon bursa. Subsequently, I anticipate that patient will be discharged back to his home on 08/31/2024 am after triamcinolone injection into left olecranon bursa. Other secondary medical issues include: #CVD, s/p acute non-hemorrhagic, ischemic 1.5 cm left lentiform nuclear CVA (as noted on 11/17/2023 MRI brain without contrast), followed by mild forgetfulness of recent events, not remote ones -Continue ASA -Hold Plavix -Continue Rosuvastatin #Hypertension -Well-controlled with BP 134/70 (08/30/2024, 3:44pm) on home-scheduled losartan 25mg PO daily -Monitor BP #CAD, s/p stent x1 (1996). -Continue ASA, Hold Plavix -Continue Rosuvastatin -Continue Losartan Admission and Anticipated Discharge Date Admission Date: August 29, 2024 Results & Data Results & Data Vital Signs (Past 12 Hours) Vital Signs Temp Pulse Resp BP Pulse Ox O2 Del Method 08/31/24 06:55 37.0 C 66 16 164/77 H 94 Room Air 08/30/24 20:32 37.2 C 62 18 166/83 H 97 Room Air PG Care Time/CCT Total # of Minutes Spent Total Time Spent with Patient: Total time spent is greater than 50% in coordination of care (as documented) at patient's floor/unit and/or counseling patient: Coding Diagnoses Pain and swelling of left elbow M25.522; M25.422 H/O TIA (transient ischemic attack) and stroke Z86.73 Primary hypertension I10 Hypertension type: primary hypertension Mixed hyperlipidemia E78.2 Hyperlipidemia type: mixed hyperlipidemia Coronary artery disease involving [place] coronary artery of [place] heart without angina pectoris I25.10 Associated angina: without angina Coronary Disease-Associated Artery/Lesion type: [place] artery [place] vs. transplanted heart: [place] heart (3) HTN (hypertension) Hypertension type: primary hypertension Qualified Code(s): I10 - Essential (primary) hypertension (4) Hyperlipidemia Hyperlipidemia type: mixed hyperlipidemia Qualified Code(s): E78.2 - Mixed hyperlipidemia (5) Coronary artery disease Associated angina: without angina Coronary Disease-Associated Artery/Lesion type: [place] artery [place] vs. transplanted heart: [place] heart Qualified Code(s): I25.10 - Atherosclerotic heart disease of [place] coronary artery without angina pectoris
--- NOTE | 2024-08-31 09:27 | Orthopedic Progress Note ---
Date of Service August 31, 2024 Assessment & Plan (1) Pseudogout of left elbow: Assessment: Pseudogout of the left elbow. Plan: It was discussed yesterday to do a trial of a intra-articular corticosteroid injection today to hopefully help with his pseudogout symptoms of the left elbow. I discussed the risk, benefits, and alternatives to intra- articular elbow joint injection today with the patient and great detail with ample amount time for patient ask any question or stated concerns. All questions and concerns were answered the patient satisfaction he wishes to proceed with the injection. Verbal consent was obtained. See procedure below. He should restrictions modify activities around discomfort of left elbow. He was informed of the rest, ice, elevation procedures. He should follow-up with an upper extremity specialist for his left elbow once discharged. This point in time, there is no orthopedic reason for him to to continue on antibiotics. Will leave this up to admitting team if they would like to continue him on any oral antibiotics on discharge. Please reach out to [facility] orthopedics if patient situation is to change. He is orthopedically stable for discharge once medically stable. Procedure: Intra-Articular Joint Injection Location: Left elbow Ultrasound guidance: No Verbal informed consent obtained: Yes Cleaned with: Alcohol swab Anesthesia: None Needle: 22 gauge 1.5" Volume aspirated: None Injectate: 1cc Kenalog 40mg/ml + 0.5cc bupivacaine 0.5% Hemostasis obtained. Bandage applied. Patient tolerated procedure well. Post- procedural care instructions provided. Subjective . Rigo was seen this morning resting comfortably in no apparent distress. He still having some elbow pain today. It was discussed yesterday by Dr. Packer of trialing a intra-articular corticosteroid today to hopefully help with some o f his pseudogout symptoms that he is experiencing. He would like to proceed today with the injection. He denies any other concerns today. Review of Systems All systems reviewed & are unremarkable except as noted in HPI & below. Physical Exam . On physical examination of the left elbow, there is mild soft tissue edema diffusely throughout the left upper extremity with no erythema, ecchymosis, or other obvious deformities. Tenderness to palpation diffusely throughout the elbow joint. Limited range of motion at the elbow secondary to stiffness and discomfort. +2 radial pulse. Less than 2-second capillary refill. Normal sensation. Neurovascular intact. Results & Data Results & Data Laboratory Results . Diagnostic Findings . PG Care Time/CCT Total # of Minutes Spent Total Time Spent with Patient: Total time spent is greater than 50% in coordination of care (as documented) at patient's floor/unit and/or counseling patient: Coding Level of Care Code 63201 SUB INP/OBS CARE 05/15MIN Diagnoses Pseudogout of left elbow M11.222
[2024-08-31] MEDS: TRIAMCINOLONE ACET 40 MG/ML VIAL IA ONE (09:58)
[2024-08-31] MEDS: BUPIVACAINE 0.5 % 5 MG/1 ML MPF 30ML VIAL INFIL ONE (09:58)
--- NOTE | 2024-08-31 10:24 | Discharge Summary ---
Discharge Summary Date of Service August 31, 2024 Principal Dx & Hospital Course #1 = Principal Diagnosis (1) Pain and swelling of left elbow: (2) H/O TIA (transient ischemic attack) and stroke: (3) HTN (hypertension): (4) Hyperlipidemia: (5) Coronary artery disease: Plan 79 years old right-handed male presented progressive pain and swelling of left elbow. Had been on Bactrim/Keflex by PCP outpatient with progressive pain. Hx gout arthritis #Acute left olecranon bursitis, R/O acute left olecranon/forearm cellulitis. Placed on Vancomycin, Ceftriaxone IV Blood cultures no growth to date x 48 hrs Xray with out fracture from 08/27, did note moderate degenerative changes and joint effusion Orthopedics consulted, suspected elevated CRP/ESR elevation 2nd to gout and planned for steroid injection s/p intraarticular injection to LEFT elbow AM 08/31, reports improvement in edema/redness and ROM and decision to allow to continue prior abx at nm as not able to r/o given reported improvement prior to injection and was not given steroids and did send on Prednisone taper 40mg x 1 , 30mg x 2 days, 20mg x 2 days, 10mg x 2 days to complete course and discussed to return to ER if any increased redness/pain/swelling or concerns for worsening but appeared much improved on exam, WBC wnl and afebrile/blood cultures remained without growth. F/u orthopedics, PCP at discharge. #CVD, s/p acute non-hemorrhagic, ischemic 1.5 cm left lentiform nuclear CVA (as noted on 11/17/2023 MRI brain without contrast), followed by mild forgetfulness of recent events, not remote ones. Continued on aspirin, plavix held for possible intervention and mentation stable and can resume plavix at nm. Remained on crestor #Hypertension BP controlled and remained on usual medications #CAD, s/p stent x1 (1996). -Continue ASA, crestor, losartan. plavix resumed at nm as above Notes For Next Care Provider Suspect cause for admission 2nd to gout however no aspiration/fluid collection obtained per ortho unlikely to get much and cannot r/o infection but was suspected 2nd to gout. Was on IV abx w/ Vanco/Ceftriaxone and blood cx remained NGTD and decision to have him finish course of PO abx while on prednisone taper and return sx discussed. Medication Changes From Visit Continue out course Bactrim/Keflex - blood cx negative Prednisone taper Admission HPI Per Admitting Provider 79yo male with history of HTN, CAD s/p stent placement presenting with left elbow swelling and pain. Patient denies trauma or abrasion/skin break to the area. No recent insect bites. He developed some pain and swelling several days ago - has been progressive over the last two days. Seen by his PCP yesterday and had an xray performed which showed moderate degenerative changes and joint effusion. Patient was started on Keflex and Bactrim - has taken two doses thus far. Overnight 08/28 going into 08/29 patient developed worsening swelling and pain in the left elbow. Also with some edema of the left hand and some pain in the left shoulder. Denies fever, chills, nausea, vomiting, diarrhea No additional complaints at this time No history of prior In the ER he is afebrile, HD stable ER Course: Ceftriaxone Vancomycin Admission Exam Per Admitting Provider General: patient resting comfortably, NAD, non-toxic in appearance, AA&O x 4 Skin: warm, dry, intact, no rashes or lesions HEENT: NC/AT, PERRL, EOMI, anicteric sclera, conjunctiva without injection, external ear normal to inspection and nontender, nares patent, moist mucus membranes, dentition intact, no oropharyngeal lesions, neck supple, trachea midline, no LAD, no thyromegaly, no JVD Heart: +S1/S2, regular, no m/r/g Lungs: equal air entry bilaterally, no rales/rhonchi/wheezes Abd: +BS, soft, NT/ND, no masses/organomegaly/ascites Ext: warm, 2+ pulses in UE/LE bilaterally, no clubbing/cyanosis Left elbow warm, erythematous and tender with joint effusion present, edema of left forearm as well and left hand, NV intact, pain with palpation of left shoulder at AC joint Neuro: nonfocal, patient AA&O x 4, speech intact, no facial droop, moving all extremities on command with equal strength 5/5 Discharge Exam General: 79yo male sitting up in recliner chair, in room, NAD, s/p injection to LEFT elbow, ROM improved, no significant drainage, slight effusion to region of olecranon bursa, no significant tenderness Head atraumatic, normocephalic, mmm, trachea midline Resp; even/unlabored, no wheezing/rales, on room air CV: RRR, no pitting edema GI: +BS, soft/NT no mccollum MSK/Neuro: moves all extremities, L elbow improvement ROM, sensation intact Psych: AOx3, cooperative with exam Discharge Plan Discharge Items Patient Disposition: Home - Self-Care Reason For Visit: POSSIBLE ELBOW JOINT INFECTION Discharge Diagnosis: Gout, possible infection Condition on Discharge: Serious Goals: You have been hospitalized for an acute medical problem. During your stay at [facility], we have made an effort to correct the problem that brought you to the hospital while keeping you as comfortable as possible. Medications were used to bring your condition under control and your discharge instructions will include directions for any medications you should take after leaving the hospital. Please make sure you see your Primary Care Provider as part of your follow up plan. Activity: As commented below Non-emergency contact: Primary Care Provider and Surgeon Call non-emergency contact if: you have any medication questions, your symptoms worsen, your pain is not controlled, your pain is worsening, your pain is unusual for you and you have a fever Follow-up/Referrals: Mary Franklin MD [Primary Care Provider] - 09/07/24 10:30 am (Primary care hospital follow up scheduled on 09/07/24 at 10:30 with Violeta CHEN) Skyler Galvan PA-C [Physician Solution Strategist] - 09/02/24 1:30 pm (Orthopedics follow up scheduled on 09/02/24 at 1:30 with Skyler Galvan) Diet: Carb Consistent or DM2 and Heart Healthy Addtl Attending Provider Instructions: You have been hospitalized for concerns for possible infection in the elbow. You were given IV antibiotics and orthopedics was consulted and they suspect this is related to underlying gout. You received a steroid injection and are to continue the oral antibiotics already prescribed outpatient at discharge until seen by PCP in follow up. We are also sending on prednisone taper 30mg by mouth tomorrow morning x 2 days, then 20mg x 2 days, then 10mg x 2 days to complete the taper. Please follow up with primary care in the next 7-10 days to monitor your status. As discussed, please return to the ER with any increased pain/fever/redness, decreased range of motion or for any other symptoms concerning for you. It has been a pleasure being a part of the medical team providing for you while you have been in the hospital. Take care! Pending Studies at Discharge: Yes Studies:: Blood cultures -- no growth to date Stand-Alone Forms: My [facility], Smoking Cessation Medications and DC Order Prescriptions: New prednisone 20 mg tablet See Rx Instructions .ROUTE .COMPLEX Qty: 6 0RF Rx Instructions: 30mg (1.5 tablets) daily x 2 days, then 20mg (1 tablet) daily x 2 days, then 10mg (0.5 tablet) daily x 2 days. Continued hydroxyzine HCl 25 mg tablet 25 mg PO BID PRN (Reason: itching) Qty: 60 1RF losartan 25 mg tablet 25 mg PO DAILY Qty: 90 1RF clopidogrel 75 mg tablet 75 mg PO QAM Qty: 90 1RF rosuvastatin 20 mg tablet 20 mg PO DAILY Qty: 90 1RF nitroglycerin 0.4 mg tablet, sublingual 0.4 mg SL Q5M PRN (Reason: chest pain) Qty: 25 0RF acetaminophen 500 mg tablet 500 mg PO UD PRN (Reason: fever or pain) Patient Comments: 500 mg PO Q4-6H PRN; Rx Instructions: Q4 - 6 hours sulfamethoxazole-trimethoprim [Bactrim DS] 800-160 mg tablet 1 tab PO BID 7 Days Qty: 14 0RF cephalexin 500 mg capsule 500 mg PO BID Qty: 14 0RF aspirin 81 mg capsule 81 mg PO DAILY Qty: 90 2RF multivitamin Tablet 1 tab PO DAILY Discharge Orders: Discharge Order (Routine); Ordered 08/31/24 Ordered By: Martha Lovell Admission Data Admit Date/Time: 08/29/24 06:06 Attending Provider: Isiah You Admit Provider: Sharmin Wasserman Primary Care Provider: Mary Franklin Other Providers: Richard Packer; Sharmin Wasserman Other Interventions: Discharge Summary Assessment (RN) Last Done: 08/31/24 10:44 Hospital Stay Data Consultations 08/29/24 05:57 ED Decision to Admit Stat 08/29/24 06:06 Consult Orthopedic Surgery Routine Diagnostic Imagining Performed Chest X-Ray 08/29/24 04:14 EXAM: XR chest 1V portable CLINICAL HISTORY: Sepsis TECHNIQUE: An X-ray image of the chest is obtained in AP projection. COMPARISON: No prior studies are available for comparison. FINDINGS: Pulmonary Parenchyma: Prominent bilateral bronchovascular markings. No evidence of consolidation, collapse, or focal opacities. No pulmonary nodules are identified. No evidence of pleural effusion or pleural thickening. Heart and Mediastinum: Heart size and shape are normal. No mediastinal widening or masses. No hilar or mediastinal lymphadenopathy. Bony Thorax: Bony thorax appears intact without fractures or deformities. Soft Tissues: Soft tissues overlying the chest wall are unremarkable. IMPRESSION: No acute cardiopulmonary abnormalities are identified. Electronically signed by Xavi Cole 08-29-2024 05:33 AM Discharge Instructions Given to Patient (Per Discharging Provider) You have been hospitalized for concerns for possible infection in the elbow. You were given IV antibiotics and orthopedics was consulted and they suspect this is related to underlying gout. You received a steroid injection and are to continue the oral antibiotics already prescribed outpatient at discharge until s een by PCP in follow up. We are also sending on prednisone taper 30mg by mouth tomorrow morning x 2 days, then 20mg x 2 days, then 10mg x 2 days to complete the taper. Please follow up with primary care in the next 7-10 days to monitor your status. As discussed, please return to the ER with any increased pain/fever/redness, decreased range of motion or for any other symptoms concerning for you. It has been a pleasure being a part of the medical team providing for you while you have been in the hospital. Take care! Supervising Physician Co-Signing Physician Notes The patient was not seen by me. The chart was reviewed. Case discussed with HERBER Rae. Agree with assessment and plan Total Time Total Time Spent Total Time Spent (In Minutes): 45 Coding Level of Care Code 22246 INP/OBS DISCH >30 MIN Diagnoses Pain and swelling of left elbow M25.522; M25.422 H/O TIA (transient ischemic attack) and stroke Z86.73 Primary hypertension I10 Hypertension type: primary hypertension Mixed hyperlipidemia E78.2 Hyperlipidemia type: mixed hyperlipidemia Coronary artery disease involving cahto coronary artery of cahto heart without angina pectoris I25.10 Associated angina: without angina Coronary Disease-Associated Artery/Lesion type: cahto artery [place] vs. transplanted heart: cahto heart
[2024-08-31] MEDS: predniSONE 20 MG TAB PO SCH (10:41)
== END 2024-08-31 11:07 | disposition home or self-care (01) ==
LOC: SUATTDRO → ED 03:29 → EDINP 03:29 → SUATTDRO 06:06 → 3N 10:41